=== PATIENT | male | born 1955 | race Caucasian/White ===

== ENCOUNTER 2021-05-27 21:05 | Inpatient (IN) | payer MEDICARE, OTHER ==
[2021-05-27] MEDS ORDERED: MORPHINE SULFATE 2 MG/ML SYRINGE IVP STA (21:20)
[2021-05-27] MEDS ORDERED: SODIUM CHLORIDE 0.9% 1,000 ML IV STA ×2 (21:20→23:05)
--- NOTE | 2021-05-27 21:25 | ED ---
General Adult HPI - General Chief complaint: Shortness of Breath Stated complaint: GRADY Time Seen by Provider: 05/27/21 21:06 Source: patient Mode of arrival: EMS Limitations: no limitations - History of Present Illness Initial comments: This patient is a 65-year-old man brought by ambulance to be evaluated for generalized weakness and shortness of breath. The patient states that the symptoms have been going on for at least a couple of weeks. He had called EMS approximately 2 weeks ago but then was not brought to the hospital. He had even seen his primary physician yesterday for similar complaints. Today the phone EMS again because he was not able to ambulate around his apartment without having to hold onto the uriz. The patient normally does walk with a cane due to neck and back pain. He states that this has not changed much. The weakness is not focal he feels generalized fatigue and weakness throughout. No fever or chills. No baseline dyspnea, but he does feel short of breath if he attempts to walk. No chest pain. He has not noted change in urination or bowel movements. -: week(s) Improves with: none Worsens with: none Associated Symptoms: weakness - Related Data Allergies Allergy/AdvReac Type Severity Reaction Status Date / Time No Known Allergies Allergy Verified 05/27/21 21:21 Review of Systems ROS Statement: Those systems with pertinent positive or pertinent negative responses have been documented in the HPI. ROS Other: All systems not noted in ROS Statement are negative. Constitutional: Reports: weakness. Denies: fever, chills Respiratory: Denies: cough, dyspnea Cardiovascular: Reports: dyspnea on exertion. Denies: chest pain, palpitations, edema, syncope Gastrointestinal: Denies: abdominal pain, nausea, vomiting, diarrhea, constipation Genitourinary: Denies: dysuria, frequency, hematuria Musculoskeletal: Reports: as per HPI, back pain (Chronic) Skin: Denies: rash Neurological: Denies: headache, weakness, numbness, paresthesias Past Medical History Past Medical History: Atrial Fibrillation, Hypertension, Osteoarthritis (OA) Additional Past Medical History / Comment(s): gout History of Any Multi-Drug Resistant Organisms: None Reported Past Surgical History: Pacemaker Past Psychological History: Anxiety Smoking Status: Current every day smoker Past Alcohol Use History: Abuse Past Drug Use History: None Reported General Exam Limitations: no limitations General appearance: alert, in no apparent distress Head exam: Present: atraumatic, normocephalic Eye exam: Present: PERRL, EOMI. Absent: scleral icterus, conjunctival injection Pupils: Present: miosis ENT exam: Present: mucous membranes dry Neck exam: Present: normal inspection Respiratory exam: Present: wheezes (Trace expiratory wheeze). Absent: respiratory distress, rales, rhonchi, stridor, accessory muscle use Cardiovascular Exam: Present: regular rate, normal rhythm, normal heart sounds. Absent: systolic murmur, diastolic murmur, rubs, gallop GI/Abdominal exam: Present: soft. Absent: distended, tenderness, guarding, rebound, rigid, mass Extremities exam: Present: normal inspection, normal capillary refill. Absent: pedal edema, calf tenderness Back exam: Present: normal inspection. Absent: CVA tenderness (R), CVA tenderness (L) Neurological exam: Present: alert, oriented X3. Absent: motor sensory deficit Skin exam: Present: warm, dry, intact, normal color. Absent: rash Course Vital Signs 05/27/21 05/27/21 05/27/21 21:08 21:45 21:51 Temperature 97.7 F Pulse Rate 71 59 L Respiratory 16 20 22 Rate Blood Pressure 75/61 71/46 O2 Sat by Pulse 100 99 Oximetry 05/27/21 05/27/21 05/27/21 22:00 22:15 22:30 Temperature Pulse Rate 60 60 60 Respiratory 20 16 22 Rate Blood Pressure 78/60 81/58 87/59 O2 Sat by Pulse 95 96 96 Oximetry 05/27/21 23:20 Temperature Pulse Rate 60 Respiratory 18 Rate Blood Pressure 75/55 O2 Sat by Pulse Oximetry EKG Findings - EKG Comments: EKG Findings:: Twelve-lead ECG shows what appears to be ventricular paced rhythm with a rate of 60 bpm. - EKG Results: EKG: [facility] - Lab Data Result diagrams: 05/27/21 21:42 05/27/21 21:42 Lab Results 05/27/21 05/27/21 05/27/21 Range/Units 21:42 21:42 21:42 WBC 7.8 (3.8-10.6) k/uL RBC 3.91 L (4.30-5.90) m/uL Hgb 13.9 (13.0-17.5) gm/dL Hct 41.7 (39.0-53.0) % MCV 106.5 H (80.0-100.0) fL MCH 35.5 H (25.0-35.0) pg MCHC 33.3 (31.0-37.0) g/dL RDW 13.7 (11.5-15.5) % Plt Count 104 L (150-450) k/uL MPV 9.1 Neutrophils % 75 % Lymphocytes % 13 % Monocytes % 8 % Eosinophils % 2 % Basophils % 1 % Neutrophils # 5.8 (1.3-7.7) k/uL Lymphocytes # 1.0 (1.0-4.8) k/uL Monocytes # 0.6 (0-1.0) k/uL Eosinophils # 0.2 (0-0.7) k/uL Basophils # 0.0 (0-0.2) k/uL Macrocytosis Moderate PT 11.3 (9.0-12.0) sec INR 1.1 (<1.2) APTT 25.1 (22.0-30.0) sec Sodium 135 L (137-145) mmol/L Potassium 4.0 (3.5-5.1) mmol/L Chloride 100 (98-107) mmol/L Carbon Dioxide 20 L (22-30) mmol/L Anion Gap 15 mmol/L BUN 23 H (9-20) mg/dL Creatinine 4.25 H (0.66-1.25) mg/dL Est GFR (CKD-EPI)AfAm 16 (>60 ml/min/1.73 sqM) Est GFR (CKD-EPI)NonAf 14 (>60 ml/min/1.73 sqM) Glucose 124 H (74-99) mg/dL Calcium 8.8 (8.4-10.2) mg/dL Magnesium 1.1 L (1.6-2.3) mg/dL Total Bilirubin 1.7 H (0.2-1.3) mg/dL AST 57 (17-59) U/L ALT 27 (4-49) U/L Alkaline Phosphatase 85 (38-126) U/L Troponin I (0.000-0.034) ng/mL Total Protein 5.9 L (6.3-8.2) g/dL Albumin 3.6 (3.5-5.0) g/dL TSH 2.980 (0.465-4.680) mIU/L 05/27/21 Range/Units 21:42 WBC (3.8-10.6) k/uL RBC (4.30-5.90) m/uL Hgb (13.0-17.5) gm/dL Hct (39.0-53.0) % MCV (80.0-100.0) fL MCH (25.0-35.0) pg MCHC (31.0-37.0) g/dL RDW (11.5-15.5) % Plt Count (150-450) k/uL MPV Neutrophils % % Lymphocytes % % Monocytes % % Eosinophils % % Basophils % % Neutrophils # (1.3-7.7) k/uL Lymphocytes # (1.0-4.8) k/uL Monocytes # (0-1.0) k/uL Eosinophils # (0-0.7) k/uL Basophils # (0-0.2) k/uL Macrocytosis PT (9.0-12.0) sec INR (<1.2) APTT (22.0-30.0) sec Sodium (137-145) mmol/L Potassium (3.5-5.1) mmol/L Chloride (98-107) mmol/L Carbon Dioxide (22-30) mmol/L Anion Gap mmol/L BUN (9-20) mg/dL Creatinine (0.66-1.25) mg/dL Est GFR (CKD-EPI)AfAm (>60 ml/min/1.73 sqM) Est GFR (CKD-EPI)NonAf (>60 ml/min/1.73 sqM) Glucose (74-99) mg/dL Calcium (8.4-10.2) mg/dL Magnesium (1.6-2.3) mg/dL Total Bilirubin (0.2-1.3) mg/dL AST (17-59) U/L ALT (4-49) U/L Alkaline Phosphatase (38-126) U/L Troponin I 0.091 H* (0.000-0.034) ng/mL Total Protein (6.3-8.2) g/dL Albumin (3.5-5.0) g/dL TSH (0.465-4.680) mIU/L Disposition Clinical Impression: Acute kidney injury, Dehydration, Generalized weakness, Elevated troponin I level Disposition: ADMITTED IP TO THIS HOSP Condition: Fair Referrals: Herve Argueta MD [Primary Care Provider] - 1-2 days
[2021-05-27 22:01] LABS: Albumin 3.6 g/dL (3.5-5.0); Calcium 8.8 mg/dL (8.4-10.2); Magnesium 1.1 mg/dL (1.6-2.3); Total Bilirubin 1.7 mg/dL (0.2-1.3); Total Protein 5.9 g/dL (6.3-8.2)
[2021-05-27 22:02] LABS: INR 1.1 (<1.2); Partial Thromboplastin Time 25.1 sec (22.0-30.0); Prothrombin Time 11.3 sec (9.0-12.0)
--- NOTE | 2021-05-27 22:05 | XR ---
EXAMINATION TYPE: XR chest 2V DATE OF EXAM: 05/27/2021 COMPARISON: NONE HISTORY: Weakness TECHNIQUE: 2 views FINDINGS: There is no heart failure nor confluent pneumonic infiltrate. Costophrenic angles are fairl y clear. There is left axillary pacemaker. There are chest leads. There is arthritic changes at the s houlder joints. IMPRESSION: No active cardiopulmonary disease.
[2021-05-27 22:25] LABS: Basophils % (A) 1 %; Eosinophils # (A) 0.2 k/uL (0-0.7); Eosinophils % (A) 2 %; HCT 41.7 % (39.0-53.0); HGB 13.9 gm/dL (13.0-17.5); Lymphocytes % (A) 13 %; MCH 35.5 pg (25.0-35.0); MCHC 33.3 g/dL (31.0-37.0); MCV 106.5 fL (80.0-100.0); Macrocytosis Moderate; Mean Platelet Volume 9.1; Monocytes # (A) 0.6 k/uL (0-1.0); Monocytes % (A) 8 %; Neutrophils # (A) 5.8 k/uL (1.3-7.7); Neutrophils % (A) 75 %; Platelet Count 104 k/uL (150-450); RBC 3.91 m/uL (4.30-5.90); RDW 13.7 % (11.5-15.5); WBC 7.8 k/uL (3.8-10.6)
[2021-05-27] MEDS ORDERED: SODIUM CHLORIDE 0.9% 1,000 ML IV ONE (23:05)
[2021-05-27] MEDS ORDERED: MAGNESIUM SULFATE-D5W PMX 1 GM in DEXTROSE/WATER 1 100ML.BAG IVPB ONE (23:06)
[2021-05-27] MEDS ORDERED: NALOXONE 0.4 MG/ML 1 ML VIAL IV PRN (23:17)
--- NOTE | 2021-05-28 01:10 | P.HPIM ---
History of Present Illness H&P Date: 05/28/21 The patient is a 65-year-old male with a PMH of hypertension, status post pacemaker placement, history of DVT and A. fib, who presented to the emergency room with complaints of decreased excess tolerance in terms of breath. The patient reports that his symptoms have been gradually worsening over the past few weeks. He reports significantly decreased excess tolerance, getting short of breath with only walking around his house with an inability to perform his ADLs. He reports associated dizziness with ambulation along with some palpitations. Denied chest discomfort or leg swelling. The patient also reports a poor appetite and as a result has not been eating or drinking much. The patient lives by himself with his cat and states that he has been having a difficult time with his ADLs. He also reports falling on his knees 3 days ago due to his dizziness, denying loss of consciousness or head trauma. He denied lower extremity pain, nausea, vomiting, fever, chills, cough, or dysuria. Also denied headaches, visual disturbances, unilateral weakness, numbness, tingling. He underwent an extensive evaluation in the emergency room and an EKG showing paced rhythm at 60 bpm. Chest x-ray was unremarkable. Laboratory evaluation was remarkable for BUN 23, creatinine 4.25 (unknown baseline), lactic acid 3.1, magnesium 1.1, total bilirubin 1.7, and troponin I 0.091. The patient was noted to be hypotensive in the emergency room with most recent vital showing BP 94/65 and pulse 60. Review of systems: Pertinent positives and negatives as discussed in HPI, a complete review of systems was performed and all other systems are negative. Physical examination: General: Disheveled male, no distress, appears older than stated age, overweight Derm: no unusual rashes/lesions no unusual ecchymoses, warm, dry Head: atraumatic, normocephalic, symmetric Eyes: EOMI, no lid lag, anicteric sclera, pupils equal round reactive to light ENT: Nose and ears atraumatic, no thrush, no pharyngeal erythema Neck: No thyromegaly, no cervical lymphadenopathy, trachea midline, supple Mouth: no lip lesion, mucus membranes very dry Cardiovascular: S1S2 reg, no murmur, positive posterior tibial pulse bilateral, no edema, capillary refill less than 2 seconds Lungs: CTA bilateral, no rhonchi, no rales , no accessory muscle use Abdominal: soft, nontender to palpation, no guarding, no appreciable orga nomegaly, normal bowel sounds Ext: no gross muscle atrophy, muscle strength 3 out of 5 in all 4 extremities grossly, no contractures, Neuro: CN II-XI grossly intact, light touch intact all 4 extremities, finger to nose within normal limits, Psych: Alert, oriented, appropriate affect Assessment/plan Failure to thrive with acute kidney injury secondary to dehydration -Continue IV fluids -Monitor BMP -PT consult Lactic acidosis -Monitor for resolution -Continue with fluids Troponin elevation, may be secondary to dehydration -Trend for now -Cardiac monitoring -Cardiology consulted Hypomagnesemia -Replace and monitor Thrombocytopenia -Unknown baseline -Monitor for now Chronic conditions: A. fib and history of DVT, status post pacemaker placement, hypertension -Hold oral hypertensives in setting of borderline BP -Continue with home Eliquis dose 5 mg by mouth twice a day DVT prophylaxis -Eliquis The patient is admitted with an anticipated greater than 2 midnight stay for evaluation of failure to thrive CODE STATUS: Full Code Discussed with: Patient Anticipated discharge date: 2-[address]: Home Past Medical History Past Medical History: Atrial Fibrillation, Hypertension, Osteoarthritis (OA) Additional Past Medical History / Comment(s): gout History of Any Multi-Drug Resistant Organisms: None Reported Past Surgical History: Pacemaker Past Psychological History: Anxiety Smoking Status: Current every day smoker Past Alcohol Use History: Abuse Past Drug Use History: None Reported - Past Family History Father Family Medical History: Hypertension Medications and Allergies Allergies Allergy/AdvReac Type Severity Reaction Status Date / Time No Known Allergies Allergy Verified 05/27/21 21:21 Physical Exam Vitals: Vital Signs Temp Pulse Resp BP Pulse Ox 05/28/21 00:22 94/65 05/28/21 00:00 60 20 84/60 99 05/27/21 23:52 61 20 81/59 99 05/27/21 23:20 60 18 75/55 05/27/21 22:30 60 22 87/59 96 05/27/21 22:15 60 16 81/58 96 05/27/21 22:00 60 20 78/60 95 05/27/21 21:51 22 05/27/21 21:45 59 L 20 71/46 99 05/27/21 21:08 97.7 F 71 16 75/61 100 Intake and Output 05/27/21 05/27/21 05/28/21 14:59 22:59 06:59 Other: Weight 90.718 kg Results CBC & Chem 7: 05/27/21 21:42 05/27/21 21:42 Labs: Abnormal Lab Results - Last 24 Hours (Table) 05/27/21 05/27/21 05/27/21 Range/Units 21:42 21:42 21:42 RBC 3.91 L (4.30-5.90) m/uL MCV 106.5 H (80.0-100.0) fL MCH 35.5 H (25.0-35.0) pg Plt Count 104 L (150-450) k/uL Sodium 135 L (137-145) mmol/L Carbon Dioxide 20 L (22-30) mmol/L BUN 23 H (9-20) mg/dL Creatinine 4.25 H (0.66-1.25) mg/dL Glucose 124 H (74-99) mg/dL Plasma Lactic Acid Sea 3.1 H* (0.7-2.0) mmol/L Magnesium 1.1 L (1.6-2.3) mg/dL Total Bilirubin 1.7 H (0.2-1.3) mg/dL Troponin I (0.000-0.034) ng/mL Total Protein 5.9 L (6.3-8.2) g/dL 05/27/21 Range/Units 21:42 RBC (4.30-5.90) m/uL MCV (80.0-100.0) fL MCH (25.0-35.0) pg Plt Count (150-450) k/uL Sodium (137-145) mmol/L Carbon Dioxide (22-30) mmol/L BUN (9-20) mg/dL Creatinine (0.66-1.25) mg/dL Glucose (74-99) mg/dL Plasma Lactic Acid Sea (0.7-2.0) mmol/L Magnesium (1.6-2.3) mg/dL Total Bilirubin (0.2-1.3) mg/dL Troponin I 0.091 H* (0.000-0.034) ng/mL Total Protein (6.3-8.2) g/dL
[2021-05-28] MEDS: ACETAMINOPHEN TAB 325 MG TAB PO PRN ×3 (02:16→18:36)
[2021-05-28 04:45] LABS: HCT 35.4 % (39.0-53.0); HGB 11.6 gm/dL (13.0-17.5); MCH 35.5 pg (25.0-35.0); MCHC 32.9 g/dL (31.0-37.0); MCV 107.9 fL (80.0-100.0); Macrocytosis Moderate; Mean Platelet Volume 10.2; RBC 3.28 m/uL (4.30-5.90); RDW 13.7 % (11.5-15.5); WBC 5.5 k/uL (3.8-10.6)
[2021-05-28 05:17] LABS: Calcium 8.4 mg/dL (8.4-10.2); Magnesium 1.5 mg/dL (1.6-2.3); Potassium 3.8 mmol/L (3.5-5.1)
[2021-05-28 06:34] LABS: Platelet Count 85 k/uL (150-450)
[2021-05-28] MEDS ORDERED: APIXABAN 5 MG TAB PO SCH (09:00)
[2021-05-28] MEDS ORDERED: FAMOTIDINE 20 MG TAB PO SCH (09:00)
--- NOTE | 2021-05-28 10:26 | P.PN ---
Progress Note - Text Progress Note Date: 05/28/21 Patient seen and examined at bedside. Patient states that a few weeks ago he was admitted to [facility]. Since his discharge patient has not felt well. Patient states that he keeps passing out. This has been happening for the past few months. Patient states that he had a grand mal seizure in the when he was at work. The cause was not identified. Per the patient, he has not had a recent workup for his syncope. Patient has difficulty ambulating because of lower extremity weakness coming from his back. Patient was supposed to get an MRI of his lumbar spine, however he was claustrophobic and did not. Patient ambulates with a walker because of his lower extremity weakness and back pain. Due to this he has not been able to adapt fully with his ADLs. Assessment/plan 1. Syncope Neuro workup ordered Neurology recommendations appreciated 2. Lower extremity weakness likely caused by lumbar radiculopathy Check CT of lumbar spine since patient is claustrophobic with an MRI 3. A.m. labs ordered
[2021-05-28 12:16] LABS: Appearance,Urine Clear (Clear); Bilirubin,Urine 1+ (Negative); Blood,Urine Small (Negative); Color,Urine Dark Brown; Glucose,Urine (UA) Negative (Negative); Hyaline Casts,Urine 24 /lpf (0-2); Ketones,Urine Negative (Negative); Leukocyte Esterase,Urine Negative (Negative); Mucus,Urine Rare /hpf; Nitrite,Urine Negative (Negative); Protein,Urine Trace (Negative); RBC,Urine 8 /hpf (0-5); Specific Gravity,Urine 1.029 (1.001-1.035); Squamous Epithelial Cell,Urine <1 /hpf (0-4); WBC,Urine 2 /hpf (0-5)
--- NOTE | 2021-05-28 12:41 | P.NPCON ---
History of Present Illness - Reason for Consult Consult date: 05/28/21 acute renal failure - Chief Complaint Elevated creatinine - History of Present Illness This is 65-year-old male seen in consultation because of an elevated creatinine creatinine is 4.25 and 4.36 yesterday and today respectively Patient came in because of some chest discomfort and shortness of breath for the last few months. He lost 15 pounds with nausea and loss of appetite. No fever chills no cough. He does feel dizzy. His blood pressure is very low here in the 70s although he is awake and alert and warm to touch Patient says that his primary physician might have mentioned something about his kidney not being well about a year ago. He did not have any previous creatinines He does has hesitancy and difficulty in urination currently has a Malone catheter but very little urine output is in the bag over the last few hours since the Malone cath went in Past history significant for DVTs and PEs with the IVC filter on alkalosis Is also known with atrial fibrillation, pacemaker He was recently hospitalized at [facility] for the same problems details of that are not available. He was released about 2 weeks ago. He does have severe peripheral neuropathy and is being worked up for the same. Denies any history of diabetes hypertension Denies any history of nonsteroidal use, herbal use. No family history of kidney disease Past Medical History Past Medical History: Atrial Fibrillation, Hypertension, Osteoarthritis (OA) Additional Past Medical History / Comment(s): gout History of Any Multi-Drug Resistant Organisms: None Reported Past Surgical History: Pacemaker Type of Cardiac Device: Permanent Pacemaker Device Placement Date:: 2018 Past Psychological History: Anxiety Smoking Status: Current every day smoker Past Alcohol Use History: Abuse Past Drug Use History: None Reported - Past Family History Father Family Medical History: Hypertension Medications and Allergies Home Medications Medication Instructions Recorded Confirmed Type Apixaban [Eliquis] 5 mg PO BID 05/28/21 05/28/21 History Colchicine [Mitigare] 1.2 mg PO DAILY 05/28/21 05/28/21 History Cyanocobalamin (Vitamin B-12) 1,000 mcg PO DAILY 05/28/21 05/28/21 History [Vitamin B-12] Diltiazem HCl [Diltiazem HCl 24Hr 180 mg PO DAILY 05/28/21 05/28/21 History ER (XR)] Escitalopram [Lexapro] 10 mg PO DAILY 05/28/21 05/28/21 History Folic Acid 1 mg PO DAILY 05/28/21 05/28/21 History Metoprolol Succinate (ER) [Toprol 100 mg PO BID 05/28/21 05/28/21 History Xl] Rosuvastatin Calcium [Crestor] 5 mg PO HS 05/28/21 05/28/21 History Tamsulosin HCl [Flomax] 0.8 mg PO DAILY 05/28/21 05/28/21 History Thiamine [Vitamin B-1] 100 mg PO DAILY 05/28/21 05/28/21 History allopurinoL [Zyloprim] 100 mg PO BID 05/28/21 05/28/21 History oxyCODONE-APAP 10-325MG [Percocet 1 tab PO TID PRN 05/28/21 05/28/21 History 10-325 mg] traZODone HCL [Desyrel] 50 - 100 mg PO HS PRN 05/28/21 05/28/21 History Allergies Allergy/AdvReac Type Severity Reaction Status Date / Time No Known Allergies Allergy Verified 05/28/21 09:12 Physical Exam Vitals: Vital Signs Temp Pulse Pulse Resp BP BP Pulse Ox 05/28/21 12:26 115/58 05/28/21 12:25 110/58 05/28/21 12:00 94/62 05/28/21 11:59 98.1 F 56 L 18 115/58 95 05/28/21 08:00 97.5 F L 63 18 97/67 100 05/28/21 04:45 97.7 F 62 17 106/67 99 05/28/21 01:58 97.4 F L 72 16 94/61 98 05/28/21 01:28 111/77 05/28/21 00:22 94/65 05/28/21 00:00 60 20 84/60 99 05/27/21 23:52 61 20 81/59 99 05/27/21 23:20 60 18 75/55 05/27/21 22:30 60 22 87/59 96 05/27/21 22:15 60 16 81/58 96 05/27/21 22:00 60 20 78/60 95 05/27/21 21:51 22 05/27/21 21:45 59 L 20 71/46 99 05/27/21 21:08 97.7 F 71 16 75/61 100 Intake and Output 05/27/21 05/28/21 05/28/21 22:59 06:59 14:59 Other: Weight 90.718 kg 93.3 kg Examination awake alert oriented comfortable A chin exam no JVP neck is supple no facial asymmetry no lymphadenopathy in the axilla or neck Interpreted auscultation good air entry bilaterally Heart sounds unremarkable for any murmur rub gallop Abdomen soft nontender no organomegaly status masses Extremity exam was trace edema Neurologically awake alert oriented has peripheral neuropathy due to Results - Lab Results Most recent lab results Calcium 8.4 mg/dL (8.4-10.2) 05/28/21 04:24 Magnesium 1.5 mg/dL (1.6-2.3) L 05/28/21 04:24 05/28/21 04:24 05/28/21 04:24 Assessment and Plan Assessment: Impression 1. Acute kidney injury or chronic kidney disease unclear. Creatinine is 4.36, was 4.25 yesterday. Urinalysis shows trace protein 8 RBCs and 2 WBCs. He has a Malone catheter therefore there is no outlet obstruction. Likely has chronic kidney disease as he was aware that there was some problem with his kidney details are not available. We'll rule out vasculitis given he has thrombocytopenia and peripheral neuropathy 2. Mild degree of gap acidosis with bicarb 20 and anion gap 15 resolved. 3. Lactic acidosis. 4. Hypotension rule out sepsis, cardiomyopathy, adrenal insufficiency, thyroid function is normal with TSH of 2.9 5. History of DVT and pulmonary embolism on atelectasis. Rule out hypercoagulable state 6. Thrombocytopenia cause not very clear 7. Peripheral neuropathy again cause not clear. Recommendation 1. Ultrasound of the kidney 2. Urine protein to creatinine ratio although urine protein is normal 3. Check uric acid, serum cortisol, echocardiogram. 4. SARAH double-stranded DNA, C3-C4, ANCA to rule out vasculitis 5. Workup for hypercoagulable state, peripheral neuropathy. Thank you for this consultation will continue to follow closely
[2021-05-28] MEDS: ESCITALOPRAM 10 MG TAB PO SCH (12:52)
[2021-05-28] MEDS: FOLIC ACID 1 MG TAB PO SCH (12:52)
[2021-05-28] MEDS: TAMSULOSIN 0.4 MG CAP.ER.24H PO SCH (12:52)
--- NOTE | 2021-05-28 13:17 | CT ---
EXAMINATION TYPE: CT brain wo con DATE OF EXAM: 05/28/2021 COMPARISON: None HISTORY: syncope TECHNIQUE: CT scan of the head performed without contrast CT DLP: 1173.4 mGycm Automated exposure control for dose reduction was used. FINDINGS: No acute intracranial hemorrhage, midline shift or mass effect. Vazquez-white matter differentiation is preserved. There is mild brain volume loss. Patchy low-attenuation the deep white matter and periventricular reg ion suggests chronic microvascular ischemia. No acute orbital, osseous or soft tissue abnormality. Mild mucosal sinus disease noted. IMPRESSION: NO ACUTE INTRACRANIAL HEMORRHAGE, MIDLINE SHIFT OR MASS EFFECT.
[2021-05-28 13:19] LABS: Uric Acid 7.2 mg/dL (3.5-8.5)
--- NOTE | 2021-05-28 13:22 | CT ---
EXAMINATION TYPE: CT lumbar spine wo con DATE OF EXAM: 05/28/2021 COMPARISON: None HISTORY: Back pain TECHNIQUE: CT scan of the lumbar spine without contrast CT DLP: 1373.6 mGycm Automated exposure control for dose reduction was used. FINDINGS: Lumbar lordosis is maintained. There are 5 nonrib-bearing lumbar-type vertebral bodies. Vertebral body heights are normal. There is grade 1 anterior translation of L3 over L4 with severe narrowing of the intervertebral space s disc degenerative changes and disc herniation at the same level. There is mild narrowing at L5-S1. There is evidence of disc herniation at L4-5 and L5-S1. There are severe facet joint arthropathy sánchez ges extending from L2-3 L5-S1. There is severe bilateral neural foraminal narrowing at L3-4 and mild to moderate narrowing at L4-5 bilaterally. Mild bony spinal canal stenosis noted at L4 level. There is a inferior vena cava filter with the tip at the level of inferior endplate of L2. Atheroscle rotic calcifications are seen in the included aorta. Atelectatic changes are seen in the lung bases. IMPRESSION: DEGENERATIVE CHANGES IN THE LUMBAR SPINE DESCRIBED ABOVE.
--- NOTE | 2021-05-28 13:30 | P.CNNES ---
History of Present Illness Consult date: 05/28/21 Requesting physician: Adrianna Kaba Reason for Consult: recurrent syncope and weakness History of Present Illness: This is a 65-year-old gentleman with medical history of seizure, TIA, atrial fibrillation s/p pacemaker on eliquis, pulmonary embolism, bilateral lower extremity DVT and he has a Green filter in the right, chronic neck and lower back pain, osteoarthritis hypertension who presented to the emergency department via EMS on 05/27/2021 for generalized weakness and shortness of breath for the past 2 weeks. The patient is accompanied with his sister was at bedside. Patient stated that he's been feeling generalized weakness and shortness of breath for the last 2 weeks. He stated that that the head this past Saturday he had 2 episodes of passing out. He said he was sitting on a couch then he stood up and then walked and that as he got to the head to grab the handrail then that felt lightheaded and dizzy prior to episode then the patient passed out. He thinks he passed out for 1-2 minutes. He said that after waking up from my the episode that he denied any urinary, bowel incontinence. He denied any tongue bite or soreness. And then he got up and then the he passed out again and prior to passing out again he felt lightheaded and dizzy. Again he did not have any urinary, bowel incontinence or the any time soreness or bite. These episodes were not witnessed. He said that he has episode of passing out for years and he can't remember when was the last time he had prior to this one he said it could've been a month ago but they're sporadic and prior to passing [id number] feel lightheaded and dizzy. He did state that he had one seizure episode in and he said he passed out and he was hospitalized and he had an EEG but he doesn't remember the reports and he had to be on Dilantin and was on it until 1980s or 90s and was discontinued he never followed up with neurologist. Again he doesn't know the exact details of this seizure episode. Regarding his other passing out episode that he complains about he says that the he would have episodes of just feeling dizzy lightheaded prior to episode and the he is not sure if he has any jerk in of any extremity but he was told that there is no foaming around the mouth when there are witnessed his eyes are closed but there is no urinary or bowel incontinence or any tongue bite at. He stated that he notified the other physicians about this in the past and he was told that was nothing about it. Patient denies of any fevers, any focal weakness, any new visual disturbance, any difficulty getting his words out. Patient drinks about 6 packs of cans of beer a week he thinks he drinks about close to 1 or maybe less can of beer which is 12-16 hours a day. Denies of tobacco use or any illicit drug use. Patient has chronic neck and lower back pain and he does not feel at has changed. He has been using a cane for years. He has a walker at home but for the most part uses a cane. Of note patient stated that he had the TIA in the past and what in which he said that he had some difficulty with his language. Patient has never followed up with a neurologist regarding TIA or seizure. Per the sister the patient does not have any history of seizures as a child. Regarding the patient's history is term, vaginal delivery no complication. There is no family history of seizures Patient will medication consist of him out was 5 mg 1 tablet twice a day, thiamine 100 mg daily, vitamin B12 1000 g daily, trazodone, Crestor 5 mg daily at bedtime, oxycodone 1 tablet 3 times a day when necessary, colchicine, metoprolol 100 mg without twice a day, folic acid, Lexapro, diltiazem 180 mg daily. Some other workup in the hospital consisted of: Initial vital signs: Blood pressure of 75/61, heart rate of 71, respiratory of 16, temperature of 97.7 Fahrenheit rectal and pulse ox of 1% 2 L of nasal cannula. On presentation the patient had multiple recorded episodes of systolic blood pressure in the 70s to 80s and diastolics between 40s to the 60s which is very low. The lowest heart rate a got was 59 on 05/27/2021 at around 2145. CBC with differential is white blood cell has been the normal at 7.8. MCV of 106.5 and the repeat is 107.9 which is elevated, platelets is 104 and a repeated platelet is 85K which is low. Chemistry panel is initial sodium is 135 which is very minimally low and does not seem the 2 significantly low. Creatinine is 4.25 which is elevated, and the plasma lactic acid venous report is elevated, magnesium is 1.1 which is the low. AST of 57 ALT of 27 which considered within normal limits. TSH is 2.980 which is concerned with the within normal limits Troponin is 0.091 and the repeat his 0.083. Plasma lactic acid vein is 3.1 and the repeat is 2.3. EKG is reported as ventricular paced rhythm. Abnormal EKG. Review of Systems Review of system: The 12 point system was reviewed and apparent positive and negative per HPI. Past Medical History Past Medical History: Atrial Fibrillation, Hypertension, Osteoarthritis (OA) Additional Past Medical History / Comment(s): gout History of Any Multi-Drug Resistant Organisms: None Reported Past Surgical History: Pacemaker Type of Cardiac Device: Permanent Pacemaker Device Placement Date:: 2018 Past Psychological History: Anxiety Smoking Status: Current every day smoker Past Alcohol Use History: Abuse Past Drug Use History: None Reported - Past Family History Father Family Medical History: Hypertension Medications and Allergies Home Medications Medication Instructions Recorded Confirmed Type Apixaban [Eliquis] 5 mg PO BID 05/28/21 05/28/21 History Colchicine [Mitigare] 1.2 mg PO DAILY 05/28/21 05/28/21 History Cyanocobalamin (Vitamin B-12) 1,000 mcg PO DAILY 05/28/21 05/28/21 History [Vitamin B-12] Diltiazem HCl [Diltiazem HCl 24Hr 180 mg PO DAILY 05/28/21 05/28/21 History ER (XR)] Escitalopram [Lexapro] 10 mg PO DAILY 05/28/21 05/28/21 History Folic Acid 1 mg PO DAILY 05/28/21 05/28/21 History Metoprolol Succinate (ER) [Toprol 100 mg PO BID 05/28/21 05/28/21 History Xl] Rosuvastatin Calcium [Crestor] 5 mg PO HS 05/28/21 05/28/21 History Tamsulosin HCl [Flomax] 0.8 mg PO DAILY 05/28/21 05/28/21 History Thiamine [Vitamin B-1] 100 mg PO DAILY 05/28/21 05/28/21 History allopurinoL [Zyloprim] 100 mg PO BID 05/28/21 05/28/21 History oxyCODONE-APAP 10-325MG [Percocet 1 tab PO TID PRN 05/28/21 05/28/21 History 10-325 mg] traZODone HCL [Desyrel] 50 - 100 mg PO HS PRN 05/28/21 05/28/21 History Allergies Allergy/AdvReac Type Severity Reaction Status Date / Time No Known Allergies Allergy Verified 05/28/21 09:12 Physical Examination - Vital Signs Vital Signs: Vital Signs Temp Pulse Pulse Resp BP BP Pulse Ox 05/28/21 08:00 97.5 F L 63 18 97/67 100 05/28/21 04:45 97.7 F 62 17 106/67 99 05/28/21 01:58 97.4 F L 72 16 94/61 98 05/28/21 01:28 111/77 05/28/21 00:22 94/65 05/28/21 00:00 60 20 84/60 99 05/27/21 23:52 61 20 81/59 99 05/27/21 23:20 60 18 75/55 05/27/21 22:30 60 22 87/59 96 05/27/21 22:15 60 16 81/58 96 05/27/21 22:00 60 20 78/60 95 05/27/21 21:51 22 05/27/21 21:45 59 L 20 71/46 99 05/27/21 21:08 97.7 F 71 16 75/61 100 Intake and Output 05/27/21 05/28/21 05/28/21 22:59 06:59 14:59 Other: Weight 90.718 kg 93.3 kg GENERAL: The patient is lying in bed and is not in acute distress. CHEST: The heart rate is regular rate rhythm. No murmurs to auscultation. No carotid bruit bilaterally. LUNG: Clear to auscultation bilaterally no wheezing noted throughout. Not labored breathing. ABDOMEN/GI: Bowel sounds present in all 4 quadrants. No tenderness to palpation throughout. NEUROLOGICAL: Higher mental function: The patient is awake, alert, oriented to self, place and time. Patient is following commands. No aphasia and no neglect. Cranial nerves: The pupils are round, equal and reactive to light and accommodation. Visual purvis are full to confrontation throughout. Extraocular movement is intact no nystagmus is noted. Facial sensation is normal to touch throughout. The facial strength is normal throughout. Hearing is mildly to moderate decreased bilaterally to hand rub. Tongue is midline and moved [id number] without any difficulty. No dysarthria is noted. Shoulder shrug is normal bilaterally. Motor: Gait: [place] he was dragging the right leg and walking taking short steps. The strength is 4+ throughout except bilateral thighs are 4+ to 5-. Normal tone and bulk. No sponatenous movment Cerebellum: Normal finger to nose bilaterally. Sensation: Sensation is normal to touch throughout. Reflexes (right/left): 1+ throughout. Plantars are mute bilaterally. Results Coagulation study: PT of 11.3, INR 1.1, PTT of 25.1 - Laboratory Findings CBC and BMP: 05/28/21 04:24 05/28/21 04:24 Abnormal Lab Findings: Abnormal Labs 05/27/21 05/27/21 05/27/21 21:42 21:42 21:42 RBC 3.91 L Hgb Hct MCV 106.5 H MCH 35.5 H Plt Count 104 L Sodium 135 L Carbon Dioxide 20 L BUN 23 H Creatinine 4.25 H Glucose 124 H Plasma Lactic Acid Sea 3.1 H* Magnesium 1.1 L Total Bilirubin 1.7 H Troponin I Total Protein 5.9 L 05/27/21 05/28/21 05/28/21 21:42 01:06 01:50 RBC Hgb Hct MCV MCH Plt Count Sodium Carbon Dioxide BUN Creatinine Glucose Plasma Lactic Acid Sea 2.3 H* Magnesium Total Bilirubin Troponin I 0.091 H* 0.083 H* Total Protein 05/28/21 05/28/21 05/28/21 04:24 04:24 04:24 RBC 3.28 L Hgb 11.6 L Hct 35.4 L MCV 107.9 H MCH 35.5 H Plt Count 85 L Sodium 134 L Carbon Dioxide BUN 25 H Creatinine 4.36 H Glucose 102 H Plasma Lactic Acid Sea Magnesium 1.5 L Total Bilirubin Troponin I 0.069 H* Total Protein Assessment and Plan Assessment: Recurrent syncopes: Feels dizzy and light headed prior to episodes. Presented with hypotensive on presentation (blood pressure 70's/40-60's). Unlikely seizure but cannot be excluded (from history no foaming around the mouth, urinary or bowel incontinence, no tongue bite/soreness and unsure of jerking). Generalized weakness and shortness of breath for 2 weeks. Possibly due to hypovolemia Electrolyte imbalance (hypomagenesmia) History of seizure (one seizure in but could not tell me about clinical episode what work-up revealed. Was on dilantin then was stopped in or ) History of TIA in remote past (language deficit) Chronic neck and lower back pain and uses cane for years Macrocytosis Hypotension Kidney insufficiency (unsure if acute or chronic or acute on chronic) Atrial fibrillation status post pacemaker History of pulmonary embolism and has green filter History of bilateral DVT History of hypertension presenting with episodes of hypotension Plan: * CT of the head, CT of the lumbar and carotid duplex are ordered by the primary team is pending. * Also routine EEG is ordered by primary team. I'll not start the patient on an antiepileptic drug unless there is epileptiform discharges or seizure on EEG. If negative for seizure or epileptiform discharges recommend prolonged outpatient EEG so we can capture these event. Patient is on agreement of being started on anti-epileptic drug until we have more work-up. * Ordered 2-D echo and orthostatic vitals. * Placed on continous cardiac monitoring and Q4 hours neuro checks. * Recommend avoiding any further episodes of hypotension and will defer the management to the primary team. * Primary ordered vitamin B12, folate levels and I ordered hemoglobin A1c. * Continue thiamine 100 mg daily * Patient is continued on his home dose of eliquis 5mg 1 tab bid. He is on Lipitor 10mg and I increased to 40mg qhs for secondary stroke prophylaxis. * Cardiology is consulted for the elevated troponins. * Consulted Orthopedic team for neck and lower back pain. * Belting Inspector consulted for the kidney injury. * Will defer the rest of medical management to the primary team. The plan is discussed with the patient, his sister (Felipa who is at bedside) and his nurse. Thank you for the consultation. Zheng Linda MD Neuro-Hospitalist Time with Patient: Greater than 30
[2021-05-28] MEDS: THIAMINE 100 MG TAB PO SCH (14:44)
--- NOTE | 2021-05-28 15:13 | US ---
EXAMINATION TYPE: US carotid duplex BILAT DATE OF EXAM: 05/28/2021 COMPARISON: NONE CLINICAL HISTORY: syncope. Syncope, pt states H/O TIA's EXAM MEASUREMENTS: RIGHT: Peak Systolic Velocity (PSV) cm/sec ----- Right CCA: 63.6 ----- Right ICA: 64.7 ----- Right ECA: 100.8 ICA/CCA ratio: 1.0 RIGHT: End Diastole cm/sec ----- Right CCA: 18.6 ----- Right ICA: 19.7 ----- Right ECA: 10.2 LEFT: Peak Systolic Velocity (PSV) cm/sec ----- Left CCA: 54.9 ----- Left ICA: 77.6 ----- Left ECA: 107.3 ICA/CCA ratio: 1.4 LEFT: End Diastole cm/sec ----- Left CCA: 14.7 ----- Left ICA: 27.8 ----- Left ECA: 8.9 VERTEBRALS (direction of flow): Right Vertebral: Antegrade Left Vertebral: Antegrade Rhythm: Normal No significant stenosis seen IMPRESSION: No evidence for hemodynamically significant stenosis. Criteria for Assigning % of Stenosis / Diameter reduction (Estimation based on the indirect measurements of the internal carotid artery velocities (ICA PSV). 1. Normal (no stenosis)=ICA PSV < 125 cm/s: ratio < 2.0: ICA EDV<40 cm/s. 2. Less than 50% stenosis=ICA PSV < 125 cm/s: ratio < 2.0: ICA EDV<40 cm/s. 3. 50 to 69% stenosis=ICA PSV of 125 to 230 cm/s: ration 2.0 ? 4.0: ICA EDV 40-100 cm/s. 4. Greater than 70% stenosis to near occlusion= ICA PSV > 230 cm/s: ratio > 4.0: ICA EDV > 100 cm/s. 5. Near occlusion= ICA PSV velocities may be low or undetectable: variable ratio and ICA EDV. 6. Total occlusion=unable to detect flow.
--- NOTE | 2021-05-28 15:15 | US ---
EXAMINATION TYPE: US renals and bladder DATE OF EXAM: 05/28/2021 COMPARISON: NONE CLINICAL HISTORY: renal failure. RF EXAM MEASUREMENTS: Right Kidney: 9.4 x 4.6 x 3.9 cm Left Kidney: 10.6 x 5.6 x 4.7 cm Right Kidney: No hydronephrosis or masses seen Left Kidney: No hydronephrosis or masses seen Bladder: Not visualized, pt has cath in place There is no evidence for hydronephrosis at this point in time. No nephrolithiasis is seen. No mohsen s are identified. The urinary bladder decompressed given Malone catheter. IMPRESSION: No significant abnormality appreciated at this time.
--- NOTE | 2021-05-28 15:35 | P.CRDCN ---
History of Present Illness Consult date: 05/28/21 Requesting physician: Richard Mendoza Reason for Consult (text): elevated troponin Chief complaint: generalized weakness, poor oral intake, syncope History of present illness: This is a pleasant 65-year-old gentleman who follows with Dr. Cardona. He has a history of chronic atrial fibrillation, anticoagulated on Eliquis, DVT and bilateral PEs in the past, IVC filter, permanent pacemaker, hyperlipidemia. He was recently admitted to [facility] with symptoms of chest discomfort at which time he underwent stress test which was negative according to the discharge summary and the patient. He presented here to the emergency department with complaints of generalized weakness, poor oral intake due to decreased appetite, nausea, syncope. He was found to be significantly hypotensive on admission. We were asked to the patient in consultation for elevated troponins which came back to be 0.091, 0.083 and 0.069. Patient was found to be in acute kidney failure with a creatinine of 4.25. Of note during his admission at [facility] on May 02 his creatinine was 1.44. Chest x-ray on admission showed no active cardiopulmonary disease. EKG showed atrial fibrillation with ventricular paced rhythm. Route ultrasound showed no evidence for hemodynamically significant stenosis. He has neurology and nephrology on consultation. Pressure is somewhat better running in the 90s-110s systolic. Antihypertensive agents and beta noé on hold. Past Medical History Past Medical History: Atrial Fibrillation, Hypertension, Osteoarthritis (OA) Additional Past Medical History / Comment(s): gout History of Any Multi-Drug Resistant Organisms: None Reported Past Surgical History: Pacemaker Type of Cardiac Device: Permanent Pacemaker Device Placement Date:: 2018 Past Psychological History: Anxiety Smoking Status: Current every day smoker Past Alcohol Use History: Abuse Past Drug Use History: None Reported - Past Family History Father Family Medical History: Hypertension Medications and Allergies Home Medications Medication Instructions Recorded Confirmed Type Apixaban [Eliquis] 5 mg PO BID 05/28/21 05/28/21 History Colchicine [Mitigare] 1.2 mg PO DAILY 05/28/21 05/28/21 History Cyanocobalamin (Vitamin B-12) 1,000 mcg PO DAILY 05/28/21 05/28/21 History [Vitamin B-12] Diltiazem HCl [Diltiazem HCl 24Hr 180 mg PO DAILY 05/28/21 05/28/21 History ER (XR)] Escitalopram [Lexapro] 10 mg PO DAILY 05/28/21 05/28/21 History Folic Acid 1 mg PO DAILY 05/28/21 05/28/21 History Metoprolol Succinate (ER) [Toprol 100 mg PO BID 05/28/21 05/28/21 History Xl] Rosuvastatin Calcium [Crestor] 5 mg PO HS 05/28/21 05/28/21 History Tamsulosin HCl [Flomax] 0.8 mg PO DAILY 05/28/21 05/28/21 History Thiamine [Vitamin B-1] 100 mg PO DAILY 05/28/21 05/28/21 History allopurinoL [Zyloprim] 100 mg PO BID 05/28/21 05/28/21 History oxyCODONE-APAP 10-325MG [Percocet 1 tab PO TID PRN 05/28/21 05/28/21 History 10-325 mg] traZODone HCL [Desyrel] 50 - 100 mg PO HS PRN 05/28/21 05/28/21 History Allergies Allergy/AdvReac Type Severity Reaction Status Date / Time No Known Allergies Allergy Verified 05/28/21 09:12 Physical Exam Vitals: Vital Signs Temp Pulse Pulse Resp BP BP Pulse Ox 05/28/21 14:00 62 18 05/28/21 12:26 115/58 05/28/21 12:25 110/58 05/28/21 12:00 94/62 05/28/21 11:59 98.1 F 56 L 18 115/58 95 05/28/21 08:00 97.5 F L 63 18 97/67 100 05/28/21 04:45 97.7 F 62 17 106/67 99 05/28/21 01:58 97.4 F L 72 16 94/61 98 05/28/21 01:28 111/77 05/28/21 00:22 94/65 05/28/21 00:00 60 20 84/60 99 05/27/21 23:52 61 20 81/59 99 05/27/21 23:20 60 18 75/55 05/27/21 22:30 60 22 87/59 96 05/27/21 22:15 60 16 81/58 96 05/27/21 22:00 60 20 78/60 95 05/27/21 21:51 22 05/27/21 21:45 59 L 20 71/46 99 05/27/21 21:08 97.7 F 71 16 75/61 100 Intake and Output 05/28/21 05/28/21 05/28/21 06:59 14:59 22:59 Intake Total 240 Balance 240 Intake: Oral 240 Other: Voiding Method Indwelling Catheter Weight 93.3 kg PHYSICAL EXAMINATION: This is a 65-year-old male in no apparent distress at the time of my examination. VITAL SIGNS: Blood pressure 115/58, heart rate 56, respirations 18, temp 98.1F. Patient is 95 % on 2 L via nasal cannula. HEENT: Head is atraumatic, normocephalic. Pupils are equal, round. Sclerae anicteric. Conjunctivae are clear. Mucous membranes of the mouth are moist. Neck is supple. There is no elevated jugular venous pressure. No carotid bruit is heard. CHEST EXAMINATION: Clear to auscultation bilaterally. No wheezes rales or rhonchi. Respirations even and nonlabored. HEART EXAMINATION: Heart irregular rate and rhythm, positive S1 and S2. No S3. No S4. No clicks, rubs or murmurs. ABDOMEN: Distended, nontender. Bowel sounds are heard. No organomegaly noted. EXTREMITIES: 2+ peripheral pulses with no evidence of peripheral edema and no calf tenderness noted. NEUROLOGIC EXAMINATION: Patient is awake, alert and oriented x3. Results 05/28/21 04:24 05/28/21 04:24 Cardiac Enzymes 05/27/21 05/27/21 05/28/21 Range/Units 21:42 21:42 01:06 AST 57 (17-59) U/L Troponin I 0.091 H* 0.083 H* (0.000-0.034) ng/mL 05/28/21 Range/Units 04:24 AST (17-59) U/L Troponin I 0.069 H* (0.000-0.034) ng/mL Coagulation 05/27/21 Range/Units 21:42 PT 11.3 (9.0-12.0) sec APTT 25.1 (22.0-30.0) sec CBC 05/27/21 05/28/21 Range/Units 21:42 04:24 WBC 7.8 5.5 (3.8-10.6) k/uL RBC 3.91 L 3.28 L (4.30-5.90) m/uL Hgb 13.9 11.6 L (13.0-17.5) gm/dL Hct 41.7 35.4 L (39.0-53.0) % Plt Count 104 L 85 L (150-450) k/uL Comprehensive Metabolic Panel 05/27/21 05/28/21 Range/Units 21:42 04:24 Sodium 135 L 134 L (137-145) mmol/L Potassium 4.0 3.8 (3.5-5.1) mmol/L Chloride 100 101 (98-107) mmol/L Carbon Dioxide 20 L 26 (22-30) mmol/L BUN 23 H 25 H (9-20) mg/dL Creatinine 4.25 H 4.36 H (0.66-1.25) mg/dL Glucose 124 H 102 H (74-99) mg/dL Calcium 8.8 8.4 (8.4-10.2) mg/dL AST 57 (17-59) U/L ALT 27 (4-49) U/L Alkaline Phosphatase 85 (38-126) U/L Total Protein 5.9 L (6.3-8.2) g/dL Albumin 3.6 (3.5-5.0) g/dL Current Medications Generic Name Dose Route Start Last Admin Trade Name Freq PRN Reason Stop Dose Admin Acetaminophen 650 mg 05/27/21 23:17 05/28/21 09:43 Acetaminophen Tab 325 Mg Tab PO 650 mg Q6HR PRN Administration Mild Pain or Fever > 100.5 Allopurinol 100 mg 05/28/21 21:00 Allopurinol 100 Mg Tab PO BID CEDRICK Apixaban 2.5 mg 05/28/21 21:00 Apixaban 2.5 Mg Tablet PO BID [facility] Protocol Atorvastatin Calcium 40 mg 05/28/21 21:00 Atorvastatin 40 Mg Tab PO HS [facility] Cyanocobalamin 1,000 mcg 05/29/21 09:00 Cyanocobalamin 500 Mcg Tab PO DAILY [facility] Escitalopram Oxalate 10 mg 05/28/21 12:30 05/28/21 12:52 Escitalopram 10 Mg Tab PO 10 mg DAILY [facility] Administration Famotidine 20 mg 05/29/21 09:00 Famotidine 20 Mg Tab PO DAILY CEDRICK Folic Acid 1 mg 05/28/21 12:30 05/28/21 12:52 Folic Acid 1 Mg Tab PO 1 mg DAILY CEDRICK Administration Metoprolol Tartrate 25 mg 05/28/21 21:00 Metoprolol Tartrate 25 Mg Tab PO BID CEDRICK Naloxone HCl 0.2 mg 05/27/21 23:17 Naloxone 0.4 Mg/Ml 1 Ml Vial IV Q2M PRN Opioid Reversal Oxycodone/Acetaminophen 1 each 05/27/21 23:17 Oxycodone-Apap 5-325mg 1 Each Tab PO Q4HR PRN Severe Pain Tamsulosin HCl 0.4 mg 05/28/21 12:30 05/28/21 12:52 Tamsulosin 0.4 Mg Cap.Er.24h PO 0.4 mg [id number] CEDRICK Administration Thiamine HCl 100 mg 05/28/21 13:15 05/28/21 14:44 Thiamine 100 Mg Tab PO 100 mg DAILY CEDRICK Administration Trazodone HCl 50 - 100 mg 05/28/21 12:17 Trazodone Hcl 50 Mg Tab PO HS PRN SLEEP Intake and Output 05/28/21 05/28/21 05/28/21 06:59 14:59 22:59 Intake Total 240 Balance 240 Intake: Oral 240 Other: Voiding Method Indwelling Catheter Weight 93.3 kg 05/28/21 04:24 05/28/21 04:24 Assessment and Plan Assessment: #1 generalized weakness with episodes of syncope #2 acute on chronic kidney failure #3 mildly abnormal troponins likely secondary to underlying renal failure #4 chronic atrial fibrillation #5 sick sinus syndrome status post pacemaker implantation which appears to be functioning normally by 23 #6 hypotension Plan: From cardiology's perspective we'll obtain a 2-D echo with Doppler study to assess cardiac structure and function. We will resume low-dose beta noé. We will continue to follow the patient provide further recommendations accordingly. [employer] note has been reviewed, I agree with a documented findings and plan of care. Patient was seen and examined.
--- NOTE | 2021-05-28 15:43 | CT ---
EXAMINATION TYPE: CT cervical spine wo con DATE OF EXAM: 05/28/2021 COMPARISON: None HISTORY: Neck pain. CT DLP: 538.7 mGycm Automated exposure control for dose reduction was used. Images obtained from the skull base to T1 vertebra with no contrast. The cervical vertebra have fairly normal alignment. There is degenerative disc space narrowing throug hout the cervical spine with spurring of the endplates. There is mild narrowing of the spinal canal f rom C3 to C7. The posterior elements are intact. Facet joints are intact. There is some anterior brid ging osteophyte formation in the mid and lower cervical spine. The skull base is intact. There is nor mal aeration of the mastoid sinuses. IMPRESSION: Cervical moderate multilevel spondylotic changes. No fracture seen.
[2021-05-28 16:19] LABS: Protein/Creatinine Ratio,Urine 0.015
[2021-05-28] MEDS: ATORVASTATIN 40 MG TAB PO SCH (20:13)
[2021-05-28] MEDS: METOPROLOL TARTRATE 25 MG TAB PO SCH (20:13)
[2021-05-28] MEDS: allopurinoL 100 MG TAB PO SCH (20:13)
[2021-05-28] MEDS: APIXABAN 2.5 MG TABLET PO SCH (20:13)
[2021-05-28] MEDS ORDERED: DOCUSATE 100 MG CAP PO STA (20:16)
[2021-05-28 20:46] LABS: Cardiolipin Ab IgG Interp NEGATIVE (NEGATIVE); Cardiolipin Ab IgM Interp NEGATIVE (NEGATIVE); Cardiolipin IgA Antibody <2.0 U/mL; Cardiolipin IgM Antibody <1.5 U/mL
[2021-05-28] MEDS ORDERED: ATORVASTATIN 10 MG TAB PO SCH (21:00)
--- NOTE | 2021-05-28 23:08 | P.GSCN ---
History of Present Illness Consult date: 05/28/21 Reason for Consult: Difficulty voiding Requesting physician: Richard Mendoza History of present illness: The patient is a 65-year-old white male who has taken tamsulosin for the past 2 years. For the past 1-2 weeks, he has experienced urgency but voided only small amounts. He describes his urinary stream is being fairly weak. He experiences nocturia 2-3. He denies dysuria and hematuria. He denies any prior history of UTIs or urolithiasis. He currently has an indwelling Malone catheter in place. He states that bladder scan showed a bladder volume of approximately 120 mL, and that only a small amount of urine was obtained upon Malone catheter placement. He is admitted with generalized weakness, poor appetite, and dyspnea on exertion. Review of Systems - Constitutional Reports weakness - Cardiovascular Reports decreased exercise tolerance, Reports dyspnea on exertion - Gastrointestinal Reports loss of appetite - Genitourinary Reports as per HPI Past Medical History Past Medical History: Atrial Fibrillation, Deep Vein Thrombosis (DVT), Hypertension, Osteoarthritis (OA), Pulmonary Embolus (PE) Additional Past Medical History / Comment(s): gout History of Any Multi-Drug Resistant Organisms: None Reported Past Surgical History: Pacemaker Type of Cardiac Device: Permanent Pacemaker Device Placement Date:: 2018 Past Psychological History: Anxiety Smoking Status: Current every day smoker Past Alcohol Use History: Abuse Past Drug Use History: None Reported - Past Family History Father Family Medical History: Hypertension Medications and Allergies Home Medications Medication Instructions Recorded Confirmed Type Apixaban [Eliquis] 5 mg PO BID 05/28/21 05/28/21 History Colchicine [Mitigare] 1.2 mg PO DAILY 05/28/21 05/28/21 History Cyanocobalamin (Vitamin B-12) 1,000 mcg PO DAILY 05/28/21 05/28/21 History [Vitamin B-12] Diltiazem HCl [Diltiazem HCl 24Hr 180 mg PO DAILY 05/28/21 05/28/21 History ER (XR)] Escitalopram [Lexapro] 10 mg PO DAILY 05/28/21 05/28/21 History Folic Acid 1 mg PO DAILY 05/28/21 05/28/21 History Metoprolol Succinate (ER) [Toprol 100 mg PO BID 05/28/21 05/28/21 History Xl] Rosuvastatin Calcium [Crestor] 5 mg PO HS 05/28/21 05/28/21 History Tamsulosin HCl [Flomax] 0.8 mg PO DAILY 05/28/21 05/28/21 History Thiamine [Vitamin B-1] 100 mg PO DAILY 05/28/21 05/28/21 History allopurinoL [Zyloprim] 100 mg PO BID 05/28/21 05/28/21 History oxyCODONE-APAP 10-325MG [Percocet 1 tab PO TID PRN 05/28/21 05/28/21 History 10-325 mg] traZODone HCL [Desyrel] 50 - 100 mg PO HS PRN 05/28/21 05/28/21 History Allergies Allergy/AdvReac Type Severity Reaction Status Date / Time No Known Allergies Allergy Verified 05/28/21 09:12 Surgical - Exam Vital Signs Temp Pulse Resp BP Pulse Ox 97.7 F 71 16 75/61 100 05/27/21 21:08 05/27/21 21:08 05/27/21 21:08 05/27/21 21:08 05/27/21 21:08 - General well developed, well nourished, no distress - Respiratory normal respiratory effort - Abdomen Abdomen: soft, non tender, no guarding, no rigid, no rebound - Genitourinary normal penis with no external lesions, testicles non-tender - Rectum Rectum: normal sphincter tone, no masses, other (Prostate 30 g, smooth) - Psychiatric oriented to time, oriented to person, oriented to place, speech is normal, memory intact Results - Labs 05/28/21 04:24 05/28/21 04:24 Abnormal Lab Results - Last 24 Hours (Table) 05/27/21 05/27/21 05/27/21 Range/Units 21:42 21:42 21:42 RBC 3.91 L (4.30-5.90) m/uL Hgb (13.0-17.5) gm/dL Hct (39.0-53.0) % MCV 106.5 H (80.0-100.0) fL MCH 35.5 H (25.0-35.0) pg Plt Count 104 L (150-450) k/uL Sodium 135 L (137-145) mmol/L Carbon Dioxide 20 L (22-30) mmol/L BUN 23 H (9-20) mg/dL Creatinine 4.25 H (0.66-1.25) mg/dL Glucose 124 H (74-99) mg/dL Plasma Lactic Acid Sea 3.1 H* (0.7-2.0) mmol/L Magnesium 1.1 L (1.6-2.3) mg/dL Total Bilirubin 1.7 H (0.2-1.3) mg/dL Troponin I (0.000-0.034) ng/mL Total Protein 5.9 L (6.3-8.2) g/dL Urine Protein (Negative) Urine Blood (Negative) Urine Bilirubin (Negative) Urine RBC (0-5) /hpf Hyaline Casts (0-2) /lpf Urine Mucus (None) /hpf 05/27/21 05/28/21 05/28/21 Range/Units 21:42 01:06 01:50 RBC (4.30-5.90) m/uL Hgb (13.0-17.5) gm/dL Hct (39.0-53.0) % MCV (80.0-100.0) fL MCH (25.0-35.0) pg Plt Count (150-450) k/uL Sodium (137-145) mmol/L Carbon Dioxide (22-30) mmol/L BUN (9-20) mg/dL Creatinine (0.66-1.25) mg/dL Glucose (74-99) mg/dL Plasma Lactic Acid Sea 2.3 H* (0.7-2.0) mmol/L Magnesium (1.6-2.3) mg/dL Total Bilirubin (0.2-1.3) mg/dL Troponin I 0.091 H* 0.083 H* (0.000-0.034) ng/mL Total Protein (6.3-8.2) g/dL Urine Protein (Negative) Urine Blood (Negative) Urine Bilirubin (Negative) Urine RBC (0-5) /hpf Hyaline Casts (0-2) /lpf Urine Mucus (None) /hpf 05/28/21 05/28/21 05/28/21 Range/Units 04:24 04:24 04:24 RBC 3.28 L (4.30-5.90) m/uL Hgb 11.6 L (13.0-17.5) gm/dL Hct 35.4 L (39.0-53.0) % MCV 107.9 H (80.0-100.0) fL MCH 35.5 H (25.0-35.0) pg Plt Count 85 L (150-450) k/uL Sodium 134 L (137-145) mmol/L Carbon Dioxide (22-30) mmol/L BUN 25 H (9-20) mg/dL Creatinine 4.36 H (0.66-1.25) mg/dL Glucose 102 H (74-99) mg/dL Plasma Lactic Acid Sea (0.7-2.0) mmol/L Magnesium 1.5 L (1.6-2.3) mg/dL Total Bilirubin (0.2-1.3) mg/dL Troponin I 0.069 H* (0.000-0.034) ng/mL Total Protein (6.3-8.2) g/dL Urine Protein (Negative) Urine Blood (Negative) Urine Bilirubin (Negative) Urine RBC (0-5) /hpf Hyaline Casts (0-2) /lpf Urine Mucus (None) /hpf 05/28/21 Range/Units 11:55 RBC (4.30-5.90) m/uL Hgb (13.0-17.5) gm/dL Hct (39.0-53.0) % MCV (80.0-100.0) fL MCH (25.0-35.0) pg Plt Count (150-450) k/uL Sodium (137-145) mmol/L Carbon Dioxide (22-30) mmol/L BUN (9-20) mg/dL Creatinine (0.66-1.25) mg/dL Glucose (74-99) mg/dL Plasma Lactic Acid Sea (0.7-2.0) mmol/L Magnesium (1.6-2.3) mg/dL Total Bilirubin (0.2-1.3) mg/dL Troponin I (0.000-0.034) ng/mL Total Protein (6.3-8.2) g/dL Urine Protein Trace H (Negative) Urine Blood Small H (Negative) Urine Bilirubin 1+ H (Negative) Urine RBC 8 H (0-5) /hpf Hyaline Casts 24 H (0-2) /lpf Urine Mucus Rare H (None) /hpf Diabetes panel 05/27/21 05/28/21 Range/Units 21:42 04:24 Sodium 135 L 134 L (137-145) mmol/L Potassium 4.0 3.8 (3.5-5.1) mmol/L Chloride 100 101 (98-107) mmol/L Carbon Dioxide 20 L 26 (22-30) mmol/L BUN 23 H 25 H (9-20) mg/dL Creatinine 4.25 H 4.36 H (0.66-1.25) mg/dL Glucose 124 H 102 H (74-99) mg/dL Calcium 8.8 8.4 (8.4-10.2) mg/dL AST 57 (17-59) U/L ALT 27 (4-49) U/L Alkaline Phosphatase 85 (38-126) U/L Total Protein 5.9 L (6.3-8.2) g/dL Albumin 3.6 (3.5-5.0) g/dL Thyroid panel 05/27/21 Range/Units 21:42 TSH 2.980 (0.465-4.680) mIU/L Calcium panel 05/27/21 05/28/21 Range/Units 21:42 04:24 Calcium 8.8 8.4 (8.4-10.2) mg/dL Albumin 3.6 (3.5-5.0) g/dL Pituitary panel 05/27/21 05/28/21 Range/Units 21:42 04:24 Sodium 135 L 134 L (137-145) mmol/L Potassium 4.0 3.8 (3.5-5.1) mmol/L Chloride 100 101 (98-107) mmol/L Carbon Dioxide 20 L 26 (22-30) mmol/L BUN 23 H 25 H (9-20) mg/dL Creatinine 4.25 H 4.36 H (0.66-1.25) mg/dL Glucose 124 H 102 H (74-99) mg/dL Calcium 8.8 8.4 (8.4-10.2) mg/dL TSH 2.980 (0.465-4.680) mIU/L Adrenal panel 05/27/21 05/28/21 Range/Units 21:42 04:24 Sodium 135 L 134 L (137-145) mmol/L Potassium 4.0 3.8 (3.5-5.1) mmol/L Chloride 100 101 (98-107) mmol/L Carbon Dioxide 20 L 26 (22-30) mmol/L BUN 23 H 25 H (9-20) mg/dL Creatinine 4.25 H 4.36 H (0.66-1.25) mg/dL Glucose 124 H 102 H (74-99) mg/dL Calcium 8.8 8.4 (8.4-10.2) mg/dL Total Bilirubin 1.7 H (0.2-1.3) mg/dL AST 57 (17-59) U/L ALT 27 (4-49) U/L Alkaline Phosphatase 85 (38-126) U/L Total Protein 5.9 L (6.3-8.2) g/dL Albumin 3.6 (3.5-5.0) g/dL - Imaging US - kidney/bladder: report reviewed Assessment and Plan (1) Benign prostatic hyperplasia with lower urinary tract symptoms Current Visit: Yes Status: Acute Code(s): N40.1 - BENIGN PROSTATIC HYPERPLASIA WITH LOWER URINARY TRACT SYMP SNOMED Code(s): 610596546 Plan: The patient currently has an indwelling Malone catheter in place, draining clear yellow urine. He has experienced burning since the Malone catheter was placed. I would suggest that the catheter be removed when no longer medically needed. He will continue to receive tamsulosin. I question whether some of his voiding difficulties recently may have been related to oliguria. If he continues to experience bothersome voiding symptoms, he will be advised to undergo urinary flow studies and office cystoscopy for further evaluation. Time with Patient: Greater than 30
[2021-05-28 23:26] LABS: Hemoglobin A1C 4.7 % (4.0-6.0)
[2021-05-28] MEDS: traZODone HCL 50 MG TAB PO PRN (23:31)
[2021-05-29] MEDS: oxyCODONE-APAP 5-325MG 1 EACH TAB PO PRN ×2 (04:56→08:30)
[2021-05-29 07:48] LABS: Basophils % (A) 0 %; Eosinophils # (A) 0.1 k/uL (0-0.7); Eosinophils % (A) 3 %; HGB 11.4 gm/dL (13.0-17.5); Lymphocytes # (A) 0.9 k/uL (1.0-4.8); Lymphocytes % (A) 23 %; MCH 35.8 pg (25.0-35.0); MCHC 32.7 g/dL (31.0-37.0); MCV 109.4 fL (80.0-100.0); Macrocytosis Marked; Mean Platelet Volume 9.7; Monocytes # (A) 0.3 k/uL (0-1.0); Monocytes % (A) 7 %; Neutrophils # (A) 2.5 k/uL (1.3-7.7); Neutrophils % (A) 63 %; RDW 13.8 % (11.5-15.5)
[2021-05-29 07:51] LABS: Platelet Count 88 k/uL (150-450)
[2021-05-29 08:05] LABS: Albumin 2.8 g/dL (3.5-5.0); Calcium 8.3 mg/dL (8.4-10.2); Magnesium 1.3 mg/dL (1.6-2.3); Phosphorus 3.9 mg/dL (2.5-4.5); Potassium 3.8 mmol/L (3.5-5.1); Total Bilirubin 0.8 mg/dL (0.2-1.3)
[2021-05-29] MEDS: METOPROLOL TARTRATE 25 MG TAB PO SCH ×2 (08:31→21:42)
[2021-05-29] MEDS: THIAMINE 100 MG TAB PO SCH (08:31)
[2021-05-29] MEDS: ESCITALOPRAM 10 MG TAB PO SCH (08:31)
[2021-05-29] MEDS: CYANOCOBALAMIN 500 MCG TAB PO SCH (08:31)
[2021-05-29] MEDS: DILTIAZEM CD 180 MG CAP.ER.24H PO SCH (08:31)
[2021-05-29] MEDS: TAMSULOSIN 0.4 MG CAP.ER.24H PO SCH (08:32)
[2021-05-29] MEDS: FOLIC ACID 1 MG TAB PO SCH (08:32)
[2021-05-29] MEDS: allopurinoL 100 MG TAB PO SCH ×2 (08:32→21:42)
[2021-05-29] MEDS: APIXABAN 2.5 MG TABLET PO SCH ×2 (08:32→21:42)
[2021-05-29] MEDS: FAMOTIDINE 20 MG TAB PO SCH (08:32)
--- NOTE | 2021-05-29 10:00 | ECHOF ---
Referral Reason:shortness of breath MEASUREMENTS -------- HEIGHT: 180.3 cm WEIGHT: 93.0 kg BP: 127/83 RVIDd: 3.4 cm (< 3.3) IVSd: 1.4 cm (0.6 - 1.1) LVIDd: 4.6 cm (3.9 - 5.3) LVPWd: 1.5 cm (0.6 - 1.1) IVSs: 2.0 cm LVIDs: 3.7 cm LVPWs: 1.8 cm Ao Diam: 3.5 cm (2.0 - 3.7) AV Cusp: 2.3 cm (1.5 - 2.6) LA Diam: 4.5 cm (2.7 - 3.8) MV EXCURSION: 22.560 mm (> 18.000) MV EF SLOPE: 158 mm/s (70 - 150) EPSS: 0.6 cm MV E Jorge: 1.01 m/s MV DecT: 185 ms MV A Jorge: 0.48 m/s MV E/A Ratio: 2.10 RAP: 5.00 mmHg RVSP: 48.84 mmHg FINDINGS -------- Pacemaker This was a technically difficult study with suboptimal views. The left ventricular size is normal. There is moderate concentric left ventricular hypertrophy. O verall left ventricular systolic function is normal with, an EF between 55 - 60 %. The right ventricle is mildly enlarged. The left atrial size is normal. The right atrial size is normal. Lumason used The aortic valve is trileaflet and appears structurally normal. The mitral valve is normal. There is trace mitral regurgitation. The tricuspid valve appears structurally normal. Moderate tricuspid regurgitation present. There is mild pulmonary hypertension. The right ventricular systolic pressure, as measured by Doppler, is 48.84mmHg. There is no pulmonic regurgitation present. The aortic root size is normal. IVC Not well visulized. There is no pericardial effusion. CONCLUSIONS -------- 1. Pacemaker 2. The left ventricular size is normal. 3. There is moderate concentric left ventricular hypertrophy. 4. Overall left ventricular systolic function is normal with, an EF between 55 - 60 %. 5. The right ventricle is mildly enlarged. 6. There is trace mitral regurgitation. 7. Moderate tricuspid regurgitation present. 8. There is mild pulmonary hypertension. 9. The right ventricular systolic pressure, as measured by Doppler, is 48.84mmHg. 10. There is no pericardial effusion. NETWORK DEVELOPER: Aide Mane RDCS
[2021-05-29] MEDS ORDERED: DEXAMETHASONE SOD PHOSPHATE 4 MG/ML 1 ML VIAL IV PRN (10:18)
[2021-05-29] MEDS: MAGNESIUM SULFATE-D5W PMX 1 GM in DEXTROSE/WATER 1 100ML.BAG IVPB SCH ×4 (11:23→16:11)
--- NOTE | 2021-05-29 11:50 | PN ---
PROGRESS NOTE Patient is seen for followup for acute kidney injury. Patient's renal function has currently improved. Creatinine is down from 4.3 to 3.1 mg/dL. He has underlying BPH and had urine retention s/p indwelling Malone catheter, now removed. The patient is currently not on any IV fluids or diuretics. Serologies were ordered as he had hematuria and mild proteinuria. All serologies are currently negative. Protein creatinine ratio 0.015. PHYSICAL EXAMINATION: On examination today, blood pressure 102/66, heart rate 63 per minute, he is afebrile. Examination of the heart S1, S2. Examination of the lungs, bilateral breath sounds are heard. Abdomen is soft, nontender. Examination of lower extremities shows no significant edema. CONVERTER SKIMMER exam grossly intact. LAB: Show sodium 137, potassium 3.8, chloride 107, BUN 26, creatinine 3.12, hemoglobin 11.4 g/dL. ASSESSMENT: 1. Acute kidney injury, currently improved. No significant retention was noted currently. The patient had an indwelling Malone catheter, now removed His ultrasound done yesterday is unremarkable. Serologies are all negative. Blood pressure is slightly on the lower side. No NSAIDs or ELENA inhibitors on board. Check post void residual. 2. Lactic acidosis. 3. Mild metabolic acidosis, currently resolved. 4. Hypotension, currently improved. PLAN: Continue to encourage increased oral intake. Check post void residual. Continue to avoid NSAIDs and ELENA inhibitors for now. Follow up as outpatient for CKD. MMODL / IJN: [id number] / MTDD
[2021-05-29 11:58] LABS: Complement C3 99.3 mg/dL (80.0-207.0)
--- NOTE | 2021-05-29 12:21 | P.PN ---
<Indio Armstrong - Last Filed: 05/29/21 12:13> Subjective Progress Note Date: 05/29/21 Hospital course: Patient is a 65-year-old male with a past medical history of hypertension, hyp erlipidemia, CAD status post pacemaker placement, atrial fibrillation on Eliquis, history of DVT, and gout who presented to the emergency department on 05/28/21 with a chief complaint of fatigue, and decreased exercise intolerance, and shortness of breath progressively worsening over the past few weeks resulting in dizziness, inability to complete ADLs, and recent fall. Patient was found to have thrombocytopenia with platelet count of 85, hyponatremia with sodium of 134, acute kidney injury with BUN of 25, creatinine of 4.36, and GFR of 13 with unknown baseline creatinine level, hypomagnesemia with magnesium of 1.5, and elevated troponin of 0.091, 0.083, and 0.069. Urinalysis was negative for infection. Chest x-ray completed negative for acute cardiopulmonary process. EKG showing a ventricular paced rhythm at 60 bpm. Carotid Dopplers showing no evidence of significant stenosis. CT brain negative for acute intercranial process, but negative for acute fracture or abnormality. CT ce rvical spine revealing moderate multilevel spondylitic changes but no acute fracture noted at this time. Renal ultrasound showing no significant abnormalities at this time. Patient was admitted under our services for acute kidney injury, elevated troponin, and thrombocytopenia with consults placed to nephrology, urology, cardiology, and neurology. Physical exam: Patient was seen and fully evaluated at the bedside. He reports feeling continued weakness, excess sleepiness, and dizziness upon sitting up or attempts at standing. He denies having any headache, changes in his vision or hearing, changes in or difficulties with speech, dysphasia, chest pain or palpitations, shortness of breath at rest, abdominal pain or discomfort, nausea, vomiting, or experiencing any numbness/tingling/weakness/swelling in his extremities at this time. JOHNNY improving with hydration. TSH normal findings at 1.480, vitamin B12 and folate pending. Vital signs reviewed and stable. General: Nontoxic, no distress and appears stated age. Derm: Skin warm and dry, normal coloration for ethnicity. Head: Atraumatic, normocephalic and symmetric. Eyes: EOMs intact, no lid lag, and anicteric sclera Mouth: no lip lesions, mucus membranes moist Cardiovascular: regular rate and rhythm with normal S1S2, no murmur, positive posterior tibial pulses bilaterally, and cap refill < 2 seconds. Lungs: Respirations even, regular, and unlabored on room air. Lungs CTA bila terally, no rhonchi, no rales, no wheezing, and no accessory muscle usage. Abdominal: Obese abdomen, soft, nontender to palpation, no guarding, no appreciable organomegaly Ext: ROM intact. No gross muscle atrophy, trace lower extremity edema, no contractures Neuro: Speech clear, face symmetrical and CN II-XII grossly intact with no noted focal neuro deficits Psych: Alert and oriented to person, place, time, and situation. Appropriate and pleasant affect. Assessment and Plan of Care: Acute kidney injury secondary to dehydration, improving Failure to thrive Weakness and inability to complete ADLs -Acute kidney injury as evidenced by initial BUN of 25, creatinine of 4.36, and GFR of 13 with unknown baseline creatinine level. Currently improving with BUN 26, creatinine 3.12, and GFR of 20. -Continued rehydration with IV fluids -Urology following recommending removal of Malone catheter with voiding challe nge. -Cardiology following planning for 2-D echocardiogram to assess cardiac structure and function and resume low-dose beta noé. -Neurology following recommending EEG and 2-D echo was continuous cardiac monitoring and every 4 hours neuro checks. -Nephrology following for JOHNNY on chronic kidney disease, ordered renal ultrasound which is negative for acute process or obstruction, working up for hypercoagulable state, peripheral neuropathy, and ordered a and a double- stranded DNA, C3 4, and ANCA to rule out vasculitis. -Hold nephrotoxic medications -Continued close monitoring with repeat a.m. -Treatment of underlying electrolyte abnormalities. -PT/OT consult Elevated troponin, possibly secondary to JOHNNY -Troponins of 0.091, 0.083, and 0.069. -EKG showing a ventricular paced rhythm at 60 bpm -Telemetry monitoring -Cardiology following, planning for 2-D echocardiogram to assess cardiac structure and function. Hypomagnesemia -Magnesium 1.3, replaced. -Continued close monitoring with repeat a.m. labs. Hypertension -Monitor vital signs and Continue daily medication regimen with diltiazem and metoprolol. Hyperlipidemia -Continue daily medication regimen with atorvastatin 40 mg nightly. CAD status post pacemaker placement -Continue daily medication regimen with Eliquis, Atorvastatin, Diltiazem, and metoprolol. -EKG showing a ventricular paced rhythm at 60 bpm Atrial fibrillation on Eliquis -Continue daily medication regimen with diltiazem, metoprolol, and anticoagulation with Eliquis. History of DVT -Continue anticoagulation with Eliquis. DVT prophylaxis: Eliquis Discussed with: Patient and RN Anticipated discharge date: Clinical course to determine Anticipated discharge place: Home with homecare vs SNF A total of [] minutes was spent on the care of this complex patient more than 50% of the time was spent in counseling and care coordination. Objective - Vital Signs Vital signs: Vital Signs Temp 98.2 F 05/29/21 04:40 Pulse 64 05/29/21 04:40 Resp 18 05/29/21 04:40 BP 127/83 05/29/21 04:40 Pulse Ox 95 05/29/21 04:40 Intake & Output 05/28/21 05/29/21 05/29/21 18:59 06:59 18:59 Intake Total 1490 Output Total 125 Balance 1490 -125 Weight 92 kg Intake: IV 1130 Sodium Chloride 0.9% 1, 1130 000 ml @ 130 mls/hr IV . [id number] STA Rx#:[id number] Oral 360 Output: Urine 125 Other: Voiding Method Indwelling Catheter Urinal # Bowel Movements 0 - Labs CBC & Chem 7: 05/29/21 07:20 05/29/21 07:20 Labs: Abnormal Lab Results - Last 24 Hours (Table) 05/28/21 Range/Units 11:55 Urine Protein Trace H (Negative) Urine Blood Small H (Negative) Urine Bilirubin 1+ H (Negative) Urine RBC 8 H (0-5) /hpf Hyaline Casts 24 H (0-2) /lpf Urine Mucus Rare H (None) /hpf <Sandie Page - Last Filed: 05/29/21 19:51> Subjective Patient seen and examined independently. Patient was also seen by Indio Armstrong NP and case was discussed. I am in agreement with subjective, physical exam, assessment and plan as written above and amended below. Patient reports being a [place] 2 weeks ago with similar complaints. We'll request records. He reports he did have an issue with his kidneys there. He states he has lost 20 pounds in 2 weeks and has not been eating or drinking well. General: non toxic, no distress, disheveled, appears older than stated age Derm: warm, dry Head: atraumatic, normocephalic, symmetric Eyes: EOMI, no lid lag, anicteric sclera Mouth: no lip lesion, mucus membranes moist Cardiovascular: S1S2 reg, no murmur, positive posterior tibial pulse bilateral, Lungs: CTA bilateral, no rhonchi, no rales , no accessory muscle use Abdominal: soft, nontender to palpation, no guarding, no appreciable organomega ly Ext: no gross muscle atrophy, no edema, no contractures Neuro: CN II-XI grossly intact, no focal neuro deficits Psych: Alert, oriented, appropriate affect Objective - Vital Signs Vital signs: Vital Signs Temp 98.2 F 05/29/21 04:40 Pulse 60 05/29/21 16:00 Resp 16 05/29/21 16:00 BP 108/71 05/29/21 16:00 Pulse Ox 95 05/29/21 04:40 Intake & Output 05/29/21 05/29/21 05/30/21 06:59 18:59 06:59 Intake Total 1060 Output Total 125 Balance -125 1060 Weight 92 kg Intake: Intake, IV Titration 400 Amount Magnesium Sulfate-D5w Pmx 400 1 gm In Dextrose/Water 1 100ml.bag @ 100 mls/hr IVPB Q1H CEDRICK Rx#: [id number] Oral 660 Output: Urine 125 Other: Voiding Method Urinal Urinal # Voids 1 # Bowel Movements 0 - Labs CBC & Chem 7: 05/29/21 07:20 05/29/21 07:20 Labs: Abnormal Lab Results - Last 24 Hours (Table) 05/29/21 05/29/21 Range/Units 07:20 07:20 RBC 3.20 L (4.30-5.90) m/uL Hgb 11.4 L (13.0-17.5) gm/dL Hct 35.0 L (39.0-53.0) % MCV 109.4 H (80.0-100.0) fL MCH 35.8 H (25.0-35.0) pg Plt Count 88 L (150-450) k/uL Lymphocytes # 0.9 L (1.0-4.8) k/uL Macrocytosis Marked A BUN 26 H (9-20) mg/dL Creatinine 3.12 H (0.66-1.25) mg/dL Glucose 111 H (74-99) mg/dL Calcium 8.3 L (8.4-10.2) mg/dL Magnesium 1.3 L (1.6-2.3) mg/dL Total Protein 5.0 L (6.3-8.2) g/dL Albumin 2.8 L (3.5-5.0) g/dL
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
[2021-05-29] MEDS: CYCLOBENZAPRINE 10 MG TAB PO PRN ×2 (13:07→21:42)
--- NOTE | 2021-05-29 13:30 | P.PN ---
Subjective This is a pleasant 65-year-old gentleman who follows with Dr. Cardona. He has a history of chronic atrial fibrillation, anticoagulated on Eliquis, DVT and bilateral PEs in the past, IVC filter, permanent pacemaker, hyperlipidemia. Cardiology is following for elevated troponin. He was recently admitted to [facility] with symptoms of chest discomfort at which time he underwent stress test which was negative according to the discharge summary and the patient. He presented here to the emergency department with complaints of generalized weakness, poor oral intake due to decreased appetite, nausea, syncope. He also has complaints of chest pain and dyspnea on exertion. He was found to be significantly hypotensive on admission. Elevated troponins which came back to be 0.091, 0.083 and 0.069. Patient was found to be in acute kidney failure with a creatinine of 4.25. Of note during his admission at [facility] on May 02 his creatinine was 1.44. Chest x-ray on admission showed no active cardiopulmonary disease. EKG showed atrial fibrillation with ventricular paced rhythm. Renal ultrasound showed no evidence of hydronephrosis. He has neurology and nephrology on consultation. Echocardiogram revealed EF 55-60%, moderate tricuspid regurgitation, mild pulmonary hypertension with RVSP of 48 mmHg. 05/29/2021: Patient seen and examined at bedside, no acute distress. He continues to not feel well, describes occasional chest discomfort, shortness of breath, and fatigue. Blood pressure 102/66, heart rate 63, afebrile, maintaining oxygen saturation on room air. Telemetry reviewed atrial fibrillation with ventricular paced rhythm HR 60s, Laboratory data review WBC 4.0, hemoglobin 11.4, platelets 88, sodium 137, potassium 3.8, BUN 26, serum creatinine 3.12 (4.36 yesterday), magnesium 1.3. GENERAL: In no acute distress. NECK: Supple without JVD or thyromegaly. LUNGS: Breath sounds clear to auscultation bilaterally. Respiration equal and unlabored. No wheezes, rales or rhonchi. HEART: Irregular rate and rhythm without murmurs, rubs or gallops. S1 and S2 heard. EXTREMITIES: Normal range of motion, no edema. No clubbing or cyanosis. Peripheral pulses intact. NEURO: Alert and oriented x 3. ASSESSMENT Elevated troponin, most likely secondary to JOHNNY, patient with recent negative stress test Acute Kidney Injury Generalized Weakness History of hypertension History of hyperlipidemia Hypomagnesemia History of DVTS and bilateral PEs s/p IVC filter placement Sick sinus syndrome s/p Permanent pacemaker Chronic persistent atrial fibrillation on Eliqius Frequent falls at home PLAN Echocardiogram obtained and reviewed We will interrogate patient's device Continue Eliquis 2.5 mg twice daily, atorvastatin 40 mg nightly, Cardizem 100 mg daily, metoprolol tartrate 25 mg twice a day Further recommendations based on clinical course Nurse Practitioner note has been reviewed, I agree with a documented findings and plan of care. Patient was seen and examined. Objective - Vital Signs Vital signs: Vital Signs Temp 98.2 F 05/29/21 04:40 Pulse 63 05/29/21 08:00 Resp 16 05/29/21 08:00 BP 102/66 05/29/21 08:00 Pulse Ox 95 05/29/21 04:40 Intake & Output 05/28/21 05/29/21 05/29/21 18:59 06:59 18:59 Intake Total 1490 180 Output Total 125 Balance 1490 -125 180 Weight 92 kg Intake: IV 1130 Sodium Chloride 0.9% 1, 1130 000 ml @ 130 mls/hr IV . Q7H42M STA Rx#:[id number] Oral 360 180 Output: Urine 125 Other: Voiding Method Indwelling Catheter Urinal Urinal # Voids 1 # Bowel Movements 0 - Labs CBC & Chem 7: 05/29/21 07:20 05/29/21 07:20 Labs: Abnormal Lab Results - Last 24 Hours (Table) 05/29/21 05/29/21 Range/Units 07:20 07:20 RBC 3.20 L (4.30-5.90) m/uL Hgb 11.4 L (13.0-17.5) gm/dL Hct 35.0 L (39.0-53.0) % MCV 109.4 H (80.0-100.0) fL MCH 35.8 H (25.0-35.0) pg Plt Count 88 L (150-450) k/uL Lymphocytes # 0.9 L (1.0-4.8) k/uL Macrocytosis Marked A BUN 26 H (9-20) mg/dL Creatinine 3.12 H (0.66-1.25) mg/dL Glucose 111 H (74-99) mg/dL Calcium 8.3 L (8.4-10.2) mg/dL Magnesium 1.3 L (1.6-2.3) mg/dL Total Protein 5.0 L (6.3-8.2) g/dL Albumin 2.8 L (3.5-5.0) g/dL
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
--- NOTE | 2021-05-29 16:05 | EEG ---
ELECTROENCEPHALOGRAM REPORT DATE OF SERVICE: 05/29/2021 PREAMBLE: This is a 65-year-old male who has presented with recurrent syncopal spells. This study is performed to evaluate for any epileptiform activity. Current medications zyloprim, Eliquis, Lipitor, Lexapro, folic acid, Percocet, Flomax and Desyrel. EEG FINDINGS: This is a 21 channel routine EEG recording in a patient utilizing 10/20 international system with referential and bipolar montages. Background consists of well developed, well regulated, moderate voltage activity in 8-9 hertz alpha. Background is posterior dominant and seems to be reactive to eye opening and closing. Photic driving response was not seen. Hyperventilation was not performed. Some drowsiness was seen with appearance of bilaterally symmetric theta frequency rhythm. Deeper stages of sleep were not clearly seen. No focal or generalized epileptiform activity was seen. IMPRESSION: This is a normal awake and drowsy EEG. No focal, lateralized, or epileptiform activity was seen. MMODL / IJN: [id number] /
[2021-05-29] MEDS: GABAPENTIN 100 MG CAP PO SCH ×2 (17:19→21:42)
[2021-05-29] MEDS: ATORVASTATIN 40 MG TAB PO SCH (21:42)
[2021-05-29] MEDS: traZODone HCL 50 MG TAB PO PRN (23:39)
[2021-05-30] MEDS: CYANOCOBALAMIN 500 MCG TAB PO SCH (09:11)
[2021-05-30] MEDS: APIXABAN 2.5 MG TABLET PO SCH ×2 (09:12→20:50)
[2021-05-30] MEDS: GABAPENTIN 100 MG CAP PO SCH ×3 (09:12→20:50)
[2021-05-30] MEDS: CYCLOBENZAPRINE 10 MG TAB PO PRN ×2 (09:12→20:50)
[2021-05-30] MEDS: allopurinoL 100 MG TAB PO SCH ×2 (09:12→20:50)
[2021-05-30] MEDS: METOPROLOL TARTRATE 25 MG TAB PO SCH ×2 (09:12→20:50)
[2021-05-30] MEDS: TAMSULOSIN 0.4 MG CAP.ER.24H PO SCH (09:12)
[2021-05-30] MEDS: FAMOTIDINE 20 MG TAB PO SCH (09:12)
[2021-05-30] MEDS: FOLIC ACID 1 MG TAB PO SCH (09:12)
[2021-05-30] MEDS: DILTIAZEM CD 180 MG CAP.ER.24H PO SCH (09:13)
[2021-05-30] MEDS: ESCITALOPRAM 10 MG TAB PO SCH (09:13)
[2021-05-30] MEDS: THIAMINE 100 MG TAB PO SCH (09:13)
[2021-05-30 09:37] LABS: HCT 33.7 % (39.0-53.0); HGB 11.1 gm/dL (13.0-17.5); MCH 35.9 pg (25.0-35.0); MCV 108.9 fL (80.0-100.0); Macrocytosis Marked; Mean Platelet Volume 8.6; Platelet Count 109 k/uL (150-450); RDW 13.9 % (11.5-15.5)
[2021-05-30 09:53] LABS: Albumin 2.8 g/dL (3.5-5.0); Calcium 8.8 mg/dL (8.4-10.2); Magnesium 1.8 mg/dL (1.6-2.3); Total Bilirubin 0.7 mg/dL (0.2-1.3)
--- NOTE | 2021-05-30 09:59 | P.PN ---
<Indio Armstrong - Last Filed: 05/30/21 11:25> Subjective Progress Note Date: 05/30/21 Hospital course: Patient is a 65-year-old male with a past medical history of hypertension, hyp erlipidemia, CAD status post pacemaker placement, atrial fibrillation on Eliquis, history of DVT, and gout who presented to the emergency department on 05/28/21 with a chief complaint of fatigue, and decreased exercise intolerance, and shortness of breath progressively worsening over the past few weeks resulting in dizziness, inability to complete ADLs, and recent fall. Patient was found to have thrombocytopenia with platelet count of 85, hyponatremia with sodium of 134, acute kidney injury with BUN of 25, creatinine of 4.36, and GFR of 13 with unknown baseline creatinine level, hypomagnesemia with magnesium of 1.5, and elevated troponin of 0.091, 0.083, and 0.069. Urinalysis was negative for infection. Chest x-ray completed negative for acute cardiopulmonary process. EKG showing a ventricular paced rhythm at 60 bpm. Carotid Dopplers showing no evidence of significant stenosis. CT brain negative for acute intercranial process, but negative for acute fracture or abnormality. CT ce rvical spine revealing moderate multilevel spondylitic changes but no acute fracture noted at this time. Renal ultrasound showing no significant abnormalities at this time. Patient was admitted under our services for acute kidney injury, elevated troponin, and thrombocytopenia with consults placed to nephrology, urology, cardiology, and neurology. Physical exam: Patient was seen and fully evaluated at the bedside. He reports feeling continued weakness, excess sleepiness, and dizziness upon sitting up or attempts at standing. Patient now reporting bilateral lower quadrant abdominal pain with distention and increased shortness of breath with exertion accompanied by loss of appetite. He denies having any headache, changes in his vision or hearing, changes in or difficulties with speech, dysphasia, chest pain or palpitations, nausea, vomiting, or experiencing any numbness/tingling/weakness/swelling in his extremities at this time. JOHNNY continues to improve with hydration, BUN now 25, creatinine 2.12, and GFR of 32.. Order placed for a CT chest abdomen and pelvis without contrast. Vital signs reviewed and stable. General: Nontoxic, no distress and appears stated age. Derm: Skin warm and dry, normal coloration for ethnicity. Head: Atraumatic, normocephalic and symmetric. Eyes: EOMs intact, no lid lag, and anicteric sclera Mouth: no lip lesions, mucus membranes moist Cardiovascular: regular rate and rhythm with normal S1S2, no murmur, positive posterior tibial pulses bilaterally, and cap refill < 2 seconds. Lungs: Respirations even, regular, and unlabored on room air. Lungs CTA bilaterally, no rhonchi, no rales, no wheezing, and no accessory muscle usage. Abdominal: Obese abdomen, soft, nontender to palpation, no guarding, no appreciable organomegaly Ext: ROM intact. No gross muscle atrophy, trace lower extremity edema, no contractures Neuro: Speech clear, face symmetrical and CN II-XII grossly intact with no noted focal neuro deficits Psych: Alert and oriented to person, place, time, and situation. Appropriate and pleasant affect. Assessment and Plan of Care: Acute kidney injury secondary to dehydration, improving Failure to thrive Weakness and inability to complete ADLs -Acute kidney injury as evidenced by initial BUN of 25, creatinine of 4.36, and GFR of 13 with unknown baseline creatinine level. Currently improving with BUN now 25, creatinine 2.12, and GFR of 32. -Continued hydration with IV fluids -Urology following, Malone catheter with voiding challenge. -Cardiology following planning for 2-D echocardiogram to assess cardiac structure and function and resume low-dose beta noé. -Neurology following recommending EEG and 2-D echo was continuous cardiac monitoring and every 4 hours neuro checks. -Nephrology following for JOHNNY on chronic kidney disease, ordered renal ultrasound which is negative for acute process or obstruction, working up for hypercoagulable state, peripheral neuropathy, and ordered a and a double- stranded DNA, C3 4, and ANCA to rule out vasculitis. -Hold nephrotoxic medications. -Continued close monitoring with repeat a.m. labs -Treatment of underlying electrolyte abnormalities. -PT/OT consult -TSH normal findings 1.480. Elevated troponin, possibly secondary to JOHNNY -Troponins of 0.091, 0.083, and 0.069. -EKG showing a ventricular paced rhythm at 60 bpm -Telemetry monitoring -Cardiology following, planning for 2-D echocardiogram to assess cardiac structure and function. Right and Left lower quadrant Abdominal pain and distention, possibly secondary to constipation as patient cannot recall time of his last bowel movement -CT abdomen and pelvis without contrast to be completed. -Urinalysis was negative for infection. -Renal function improving. -Bowel protocol. Hypomagnesemia, resolved Hypertension -Monitor vital signs and Continue daily medication regimen with diltiazem and metoprolol. Hyperlipidemia -Continue daily medication regimen with atorvastatin 40 mg nightly. CAD status post pacemaker placement -Continue daily medication regimen with Eliquis, Atorvastatin, Diltiazem, and metoprolol. -EKG showing a ventricular paced rhythm at 60 bpm Atrial fibrillation on Eliquis -Continue daily medication regimen with diltiazem, metoprolol, and anticoagulation with Eliquis. History of DVT -Continue anticoagulation with Eliquis. DVT prophylaxis: Eliquis Discussed with: Patient and RN Anticipated discharge date: Clinical course to determine Anticipated discharge place: Home with homecare vs SNF A total of 45 minutes was spent on the care of this complex patient more than 50% of the time was spent in counseling and care coordination. Objective - Vital Signs Vital signs: Vital Signs Temp 97.3 F L 05/30/21 08:00 Pulse 64 05/30/21 08:00 Resp 18 05/30/21 08:00 BP 125/79 05/30/21 08:00 Pulse Ox 96 05/30/21 08:00 Intake & Output 05/29/21 05/30/21 05/30/21 18:59 06:59 18:59 Intake Total 1060 240 Output Total 100 Balance 1060 -100 240 Weight 92.5 kg Intake: Intake, IV Titration 400 Amount Magnesium Sulfate-D5w Pmx 400 1 gm In Dextrose/Water 1 100ml.bag @ 100 mls/hr IVPB Q1H [facility] Rx#: [id number] Oral 660 240 Output: Urine 100 Other: Voiding Method Urinal Toilet Toilet Urinal Urinal # Voids 1 1 # Bowel Movements 0 - Labs CBC & Chem 7: 05/30/21 08:49 05/30/21 08:49 <Sandie Page - Last Filed: 05/30/21 19:40> Subjective Indio Armstrong NP rendered care for this patient independently, reviewed the fin dings and plan as documented in the note above. I did not physically speak with or examine the patient on this date. Gallbladder ultrasound reviewed revealing cholecystitis. Consult surgery. Andrzej Chan. Will also need follow-up for possible pulmonary nodule. Objective - Vital Signs Vital signs: Vital Signs Temp 97.8 F 05/30/21 11:48 Pulse 60 05/30/21 14:27 Resp 16 05/30/21 14:27 BP 107/66 05/30/21 14:27 Pulse Ox 97 05/30/21 14:27 Intake & Output 05/30/21 05/30/21 05/31/21 06:59 18:59 06:59 Intake Total 480 Output Total 100 Balance -100 480 Weight 92.5 kg Intake: Oral 480 Output: Urine 100 Other: Voiding Method Toilet Toilet Urinal Urinal # Voids 1 1 # Bowel Movements 0 - Labs CBC & Chem 7: 05/30/21 08:49 05/30/21 08:49 Labs: Abnormal Lab Results - Last 24 Hours (Table) 05/30/21 05/30/21 Range/Units 08:49 08:49 RBC 3.10 L (4.30-5.90) m/uL Hgb 11.1 L (13.0-17.5) gm/dL Hct 33.7 L (39.0-53.0) % MCV 108.9 H (80.0-100.0) fL MCH 35.9 H (25.0-35.0) pg Plt Count 109 L (150-450) k/uL Macrocytosis Marked A BUN 25 H (9-20) mg/dL Creatinine 2.12 H (0.66-1.25) mg/dL Glucose 121 H (74-99) mg/dL Total Protein 5.0 L (6.3-8.2) g/dL Albumin 2.8 L (3.5-5.0) g/dL
--- NOTE | 2021-05-30 11:54 | CT ---
EXAMINATION TYPE: CT ChestAbdPelvis wo con DATE OF EXAM: 05/30/2021 INDICATION: SOB, bilat lower quad pain COMPARISON: None CT DLP: 1097.8 mGycm CONTRAST: Performed without Oral Contrast , no intravenous contrast. TECHNIQUE: Axial images at 5 mm thick sections. Reconstructed images in the coronal plane. Delayed images through the kidneys. FINDINGS: CT CHEST: Portion of the thyroid visualized is normal. There is a 2.0 cm area of increased density within the posterior right lung base. Correlate for atele ctasis. Small pneumonia could be considered. Underlying mass is not excluded and follow-up is recomme nded. There is some pleural calcification within the mid posterior lateral lung purvis. Small right a nd minimal left pleural effusions are present. No enlarged mediastinal or hilar adenopathy is evident. The ascending aorta diameter at the level of the main pulmonary artery is 3.9 cm. The main pulmonary artery diameter at the bifurcation is 3.2 cm. Some coronary artery calcifications present. CT ABDOMEN: Liver: Normal Spleen: Normal Pancreas: Atrophic Adrenal glands: The adrenal glands are normal. Gallbladder: There may be some pericholecystic fluid. Consider evaluation with ultrasound. Acute chol ecystitis is not excluded. Kidneys: No masses are evident. No hydronephrosis is present. No cysts are present. There is a 0.2 cm calcification without obstruction of the inferior pole right kidney. Some perinephric stranding i s at the inferior poles of the bilateral kidneys. Correlate for pyelonephritis. Aorta: Vascular calcification is within the aorta. Inferior vena cava: There is a filter within the mid inferior vena cava. CT PELVIS: Loops of bowel within the abdomen and pelvis are normal. Diverticular changes are within the sigmoid colon. No inflammatory changes are adjacent to suggest acute diverticulitis. The study is without oral contrast limiting bowel evaluation. Appendix: Normal as visualized. Urinary bladder: Normal. Genitourinary structures: Prostate is prominent. Osseous structures: No suspicious lytic or sclerotic lesions are evident. IMPRESSIONS: 1. Diverticulosis without acute diverticulitis. 2. Nonobstructing inferior pole right renal stone measuring 0.2 cm. 3. There is some stranding adjacent to the inferior poles of bilateral kidneys. Consider pyelonephrit is. 4. Fluid may be adjacent to the gallbladder with some mild inflammatory changes. Correlate with ultra sound. Consider acute cholecystitis within the differential. 5. Density within the posterior right lung base is nonspecific. Correlate for atelectasis and pneumon ia. Underlying mass is not excluded and follow-up is recommended. 6. Small bilateral pleural effusions
--- NOTE | 2021-05-30 13:19 | P.PN ---
Subjective This is a pleasant 65-year-old gentleman who follows with Dr. Cardona. He has a history of chronic atrial fibrillation, anticoagulated on Eliquis, DVT and bilateral PEs in the past, IVC filter, permanent pacemaker implantation on May 19, 2019, hyperlipidemia. Cardiology is following for elevated troponin. He was recently admitted to [facility] with symptoms of chest discomfort at which time he underwent stress test which was negative according to the discharge summary and the patient. He presented here to the emergency department with c omplaints of generalized weakness, poor oral intake due to decreased appetite, nausea, syncope. He also has complaints of chest pain and dyspnea on exertion. He was found to be significantly hypotensive on admission. Elevated troponins which came back to be 0.091, 0.083 and 0.069. Patient was found to be in acute kidney failure with a creatinine of 4.25. Of note during his admission at [facility] on May 02 his creatinine was 1.44. Chest x-ray on admission showed no active cardiopulmonary disease. EKG showed atrial fibrillation with ventricular paced rhythm. Renal ultrasound showed no evidence of hydronephrosis. He has neurology and nephrology on consultation. Echocardiogram revealed EF 55-60%, moderate tricuspid regurgitation, mild pulmonary hypertension with RVSP of 48 mmHg. 05/30/2021: Patient seen and examined at bedside, no acute distress. He continues to not feel well, describes occasional chest discomfort, shortness of breath, and fatigue. Interrogation of patient's pacemaker revealed episodes of tachycardia less than a minute, most recently on May 2023, most likely atrial fibrillation with RVR. Device is set HR 175bpm. blood pressure 135/76, heart rate 60, afebrile, maintaining saturations on room air Telemetry reviewed atrial fibrillation with ventricular paced rhythm HR 60s, no episodes of RVR. Laboratory data review WBC 4.0, hemoglobin 11.1, platelets 109, sodium 137, potassium 4.0, BUN 25, serum creatinine 2.12, magnesium 1.8. Patient underwent EEG which was normal, no focal, lateralizing or epileptiform activity was seen. Patient underwent CT abdomen and pelvis which revealed diverticulosis without acute diverticulitis, nonobstructive, right renal stone, some stranding to the inferior pole to bilateral kidneys. Consider pyelonephritis. 2.0 cm area density posterior right lung base. FLuid adjacent to gallbladder, small bilateral pleural effusions. GENERAL: In no acute distress. NECK: Supple without JVD or thyromegaly. LUNGS: Breath sounds clear to auscultation bilaterally. Respiration equal and unlabored. No wheezes, rales or rhonchi. HEART: Irregular rate and rhythm without murmurs, rubs or gallops. S1 and S2 heard. EXTREMITIES: Normal range of motion, no edema. No clubbing or cyanosis. Peripheral pulses intact. NEURO: Alert and oriented x 3. ASSESSMENT Elevated troponin, most likely secondary to JOHNNY, patient with recent negative stress test Acute Kidney Injury, slowly improving, unclear baseline serum creatinine Generalized Weakness History of hypertension History of hyperlipidemia Hypomagnesemia History of DVTS and bilateral PEs s/p IVC filter placement Sick sinus syndrome s/p Permanent pacemaker Chronic persistent atrial fibrillation on Eliqius Frequent falls at home PLAN Echocardiogram obtained and reviewed. Patient's device interrogation completed, unlikely patient's tachycardia causing him to be hypotensive BP 70s/50s on admission, most likely a response. From a cardiology perspective we will continue current regimen Eliquis 2.5 mg twice daily, atorvastatin 40 mg nightly, Cardizem 180mg daily, metoprolol tartrate 25 mg twice a day Further recommendations based on clinical course Nurse Practitioner note has been reviewed, I agree with a documented findings and plan of care. Patient was seen and examined. Objective - Vital Signs Vital signs: Vital Signs Temp 97.8 F 05/30/21 11:48 Pulse 60 05/30/21 11:48 Resp 18 05/30/21 11:48 BP 135/76 05/30/21 11:48 Pulse Ox 98 05/30/21 11:48 Intake & Output 05/29/21 05/30/21 05/30/21 18:59 06:59 18:59 Intake Total 1060 240 Output Total 100 Balance 1060 -100 240 Weight 92.5 kg Intake: Intake, IV Titration 400 Amount Magnesium Sulfate-D5w Pmx 400 1 gm In Dextrose/Water 1 100ml.bag @ 100 mls/hr IVPB Q1H [facility] Rx#: [id number] Oral 660 240 Output: Urine 100 Other: Voiding Method Urinal Toilet Toilet Urinal Urinal # Voids 1 1 # Bowel Movements 0 - Labs CBC & Chem 7: 05/30/21 08:49 05/30/21 08:49 Labs: Abnormal Lab Results - Last 24 Hours (Table) 05/30/21 05/30/21 Range/Units 08:49 08:49 RBC 3.10 L (4.30-5.90) m/uL Hgb 11.1 L (13.0-17.5) gm/dL Hct 33.7 L (39.0-53.0) % MCV 108.9 H (80.0-100.0) fL MCH 35.9 H (25.0-35.0) pg Plt Count 109 L (150-450) k/uL Macrocytosis Marked A BUN 25 H (9-20) mg/dL Creatinine 2.12 H (0.66-1.25) mg/dL Glucose 121 H (74-99) mg/dL Total Protein 5.0 L (6.3-8.2) g/dL Albumin 2.8 L (3.5-5.0) g/dL
--- NOTE | 2021-05-30 14:14 | PN ---
PROGRESS NOTE Patient is seen for followup for acute kidney injury. His renal function continues to improve. Serum creatinine is down to 2.1 from 4.3 yesterday. Currently patient is not on any IV fluids or diuretics. He did have an indwelling Malone catheter initially but that was discontinued and he has been voiding well with no elevation in postvoid residual volumes. EXAMINATION: Today patient is comfortable. He is lying in bed. Blood pressure 135/76, heart rate 60 per minute. He is afebrile. Examination of the heart S1, S2. Examination of the lungs, bilateral breath sounds are heard. Abdomen is soft, nontender. Examination of lower extremities shows no significant edema. PARTS IDENTIFIER exam grossly intact. LABS: Show sodium 137, potassium 4.0, chloride 107, BUN 25, creatinine 2.1, hemoglobin 11.1 g/dL. ASSESSMENT: 1. Acute kidney injury, most likely acute tubular necrosis, currently improving. 2. Metabolic acidosis, now resolved. 3. Hypotension, currently improved. PLAN: Continue with Flomax. Encourage increased oral intake. Repeat labs in a.m. Patient will need outpatient followup. MMODL / IJN: [id number] /
[2021-05-30] MEDS: oxyCODONE-APAP 5-325MG 1 EACH TAB PO PRN ×2 (14:17→20:49)
[2021-05-30] MEDS ORDERED: DEXAMETHASONE SOD PHOSPHATE 4 MG/ML 1 ML VIAL IV PRN (14:24)
--- NOTE | 2021-05-30 14:34 | P.PN ---
Subjective Progress Note Date: 05/30/21 Principal diagnosis: Generalized weakness and difficulty with ambulation, cervical and lumbar pain, Patient was examined today at bedside, he is resting in his hospital bed. He is still having discomfort in his neck and low back. I did place an order yesterday for Decadron 4 mg every 6 hours, it was put in as when necessary and is for nausea and vomiting so the patient does not receive this medication, the order has been changed since then. Dr. Guillen did see the patient earlier this morning at bedside and discuss current treatment plans with him. Objective - Vital Signs Vital signs: Vital Signs Temp 97.8 F 05/30/21 11:48 Pulse 60 05/30/21 14:27 Resp 16 05/30/21 14:27 BP 107/66 05/30/21 14:27 Pulse Ox 97 05/30/21 14:27 Intake & Output 05/29/21 05/30/21 05/30/21 18:59 06:59 18:59 Intake Total 1060 480 Output Total 100 Balance 1060 -100 480 Weight 92.5 kg Intake: Intake, IV Titration 400 Amount Magnesium Sulfate-D5w Pmx 400 1 gm In Dextrose/Water 1 100ml.bag @ 100 mls/hr IVPB Q1H [facility] Rx#: [id number] Oral 660 480 Output: Urine 100 Other: Voiding Method Urinal Toilet Toilet Urinal Urinal # Voids 1 1 # Bowel Movements 0 - Exam Gen: AOx3, NAD VSS stable at this time Integument: No open lesions or sores visualized throughout the cervical, thoracic or lumbar spine. There is no wounds appreciated in the lower extremities. He has a notable effusion on the right knee, well-healed portal sites on the medial, lateral and suprapatellar region. Multiple scars are present in the bilateral lower extremities. Palpation: Patient has mild tenderness with palpation in the midline paraspinal region of both the cervical and lumbar spine, there is no tenderness in the thoracic spine. Patient is nontender with palpation surrounding the right knee. ROM: Range of motion is intact in all major muscle groups of the bilateral upper extremities Range of motion is intact in all major muscle groups of the bilateral lower extremities Passive range of motion of bilateral lower extremities does reproduce rigidity and stiffness Sensory Exam: Senory exam to light touch is intact C5-T1 Senosry exam to light touch is intact L2-S1 Motor: 4/5 strength is appreciated in all major muscle groups of bilateral upper and lower extremities Reflexes: Unable to appreciate any clonus in the bilateral lower extremities, difficulty assessed due to his general stiffness Negative Hoffmans in bilateral upper extremities Special Test: Straight leg raise on the bilateral legs demonstrates no acute findings logroll maneuver the bilateral hips reproduces no pain - Labs CBC & Chem 7: 05/30/21 08:49 05/30/21 08:49 Labs: Abnormal Lab Results - Last 24 Hours (Table) 05/30/21 05/30/21 Range/Units 08:49 08:49 RBC 3.10 L (4.30-5.90) m/uL Hgb 11.1 L (13.0-17.5) gm/dL Hct 33.7 L (39.0-53.0) % MCV 108.9 H (80.0-100.0) fL MCH 35.9 H (25.0-35.0) pg Plt Count 109 L (150-450) k/uL Macrocytosis Marked A BUN 25 H (9-20) mg/dL Creatinine 2.12 H (0.66-1.25) mg/dL Glucose 121 H (74-99) mg/dL Total Protein 5.0 L (6.3-8.2) g/dL Albumin 2.8 L (3.5-5.0) g/dL Assessment and Plan Assessment: Generalized weakness Difficulty with ambulation Multileve cervical spondylosis Multilevel lumbar spondylosis L3-L4 grade 1 anteriolisthesis Multiple medical comorbidities Plan: No emergent orthopedic surgical intervention recommended at this time Patient has a multitude of factors contributing to his current medical state. At this time patient is not demonstrating any acute cervical radicular or lumbar radicular symptoms. The cervical and lumbar pain have been present for many years. Taking consideration his previous stroke and TIA, this would demonstrate some residual weakness on the right-hand side especially in his lower extremity. He does have notable weakness and rigidity on exam, but again it is very difficult to determine if this is from his lumbar pathology versus medical deconditioning. Continue flexeril as needed, along with gabapentin 100mg, decadron order as been altered PT/OT evaluation, walker or cane for gait stabilization GI and DVT prophylaxis, and is on chronic blood thinners from previous TIA/stroke/A. fib Other nuclear medicine medical director recommendations Time with Patient: Less than 30
[2021-05-30] MEDS: DEXAMETHASONE SOD PHOSPHATE 4 MG/ML 1 ML VIAL IV SCH ×2 (17:34→22:33)
--- NOTE | 2021-05-30 19:25 | US ---
EXAMINATION TYPE: US gallbladder DATE OF EXAM: 05/30/2021 COMPARISON: CT CLINICAL HISTORY: CT suggestive of possible acute cholecystitis. CT suggestive of possible acute chol ecystitis. EXAM MEASUREMENTS: Liver Length: 18.7 cm Gallbladder Wall: 0.40 cm CBD: 0.49 cm Right Kidney: 10.4 x 4.0 x 4.1 cm Limited due to body habitus and overlying bowel gas. Pancreas: Tail obscured by gas. Liver: Increased echogenicity and attenuation. Appears enlarged and coarse in echotexture. Gallbladder: Wall appears to be thickened. Internal echoes seen within the gallbladder measuring 3.3 x 1.3 x 1.1 cm. Heterogeneous complex fluid-appearing area seen adjacent to the gallbladder: 3.6 x 3 .8 x 1.4 cm. Evidence for sonographic Browne's sign: Patient feels pain throughout abdomen. CBD: Portions seen appear to be wnl. Right Kidney: Limited. Hyperechoic focus seen lower pole: 0.5 x 0.5 x 0.2 cm. IMPRESSION: There is debris in the gallbladder. There is gallbladder wall thickening and consistent with acute an d chronic cholecystitis. There is minimal pericholecystic fluid. No dilated ducts. No focal liver def ect.
[2021-05-30 20:25] LABS: Glucose,Whole Blood 137 mg/dL (75-99)
[2021-05-30] MEDS: ATORVASTATIN 40 MG TAB PO SCH (20:50)
[2021-05-30] MEDS: INSULIN ASPART (NovoLOG) 100 UNIT/ML VIAL SQ SCH (20:50)
[2021-05-30] MEDS ORDERED: DOCUSATE 100 MG CAP PO PRN (22:32)
[2021-05-30] MEDS: PIPERACILLIN-TAZOBACTAM 3.375 GM in SODIUM CHLORIDE 0.9% 100 ML IVPB SCH (22:34)
[2021-05-30] MEDS: traZODone HCL 50 MG TAB PO PRN (22:46)
[2021-05-31 06:15] LABS: Glucose,Whole Blood 203 mg/dL (75-99)
[2021-05-31] MEDS: DEXAMETHASONE SOD PHOSPHATE 4 MG/ML 1 ML VIAL IV SCH ×4 (06:35→22:02)
[2021-05-31 06:40] LABS: HCT 36.6 % (39.0-53.0); HGB 12.1 gm/dL (13.0-17.5); MCH 35.8 pg (25.0-35.0); MCV 108.5 fL (80.0-100.0); Macrocytosis Moderate; Mean Platelet Volume 8.3; Platelet Count 138 k/uL (150-450); RBC 3.38 m/uL (4.30-5.90); RDW 13.9 % (11.5-15.5); WBC 3.8 k/uL (3.8-10.6)
[2021-05-31] MEDS: INSULIN ASPART (NovoLOG) 100 UNIT/ML VIAL SQ SCH ×4 (06:41→21:57)
[2021-05-31 06:55] LABS: Albumin 3.4 g/dL (3.5-5.0); Calcium 9.2 mg/dL (8.4-10.2); Potassium 4.3 mmol/L (3.5-5.1); Total Bilirubin 0.9 mg/dL (0.2-1.3); Total Protein 5.8 g/dL (6.3-8.2)
[2021-05-31] MEDS: GABAPENTIN 100 MG CAP PO SCH (08:13)
[2021-05-31] MEDS: PIPERACILLIN-TAZOBACTAM 3.375 GM in SODIUM CHLORIDE 0.9% 100 ML IVPB SCH ×3 (08:13→22:02)
[2021-05-31] MEDS: FAMOTIDINE 20 MG TAB PO SCH (08:13)
[2021-05-31] MEDS: FOLIC ACID 1 MG TAB PO SCH (08:14)
[2021-05-31] MEDS: DILTIAZEM CD 180 MG CAP.ER.24H PO SCH (08:15)
[2021-05-31] MEDS: CYANOCOBALAMIN 500 MCG TAB PO SCH (08:15)
[2021-05-31] MEDS: METOPROLOL TARTRATE 25 MG TAB PO SCH (08:15)
[2021-05-31] MEDS: ESCITALOPRAM 10 MG TAB PO SCH (08:15)
[2021-05-31] MEDS: THIAMINE 100 MG TAB PO SCH (08:15)
[2021-05-31] MEDS: APIXABAN 2.5 MG TABLET PO SCH ×2 (08:15→20:16)
[2021-05-31] MEDS: allopurinoL 100 MG TAB PO SCH ×2 (08:15→20:16)
[2021-05-31] MEDS: TAMSULOSIN 0.4 MG CAP.ER.24H PO SCH (08:16)
[2021-05-31] MEDS ORDERED: amLODIPine 5 MG TAB PO SCH (09:30)
[2021-05-31 11:35] LABS: Glucose,Whole Blood 138 mg/dL (75-99)
--- NOTE | 2021-05-31 11:57 | PN ---
PROGRESS NOTE Patient is seen for followup for acute kidney injury. Patient's renal function continues to improve. He is comfortable, awake, not in any acute distress. PHYSICAL EXAMINATION: Blood pressure is 163/91, heart rate 61 per minute. He is afebrile. Examination of the heart S1, S2. Examination of the lungs, bilateral breath sounds are heard. Abdomen is soft, nontender. Examination of lower extremities shows no significant edema. INTERNET MARKETING COORDINATOR exam grossly intact. LAB: Show sodium 138, potassium 4.3, chloride 105. BUN 28, creatinine 1.8, hemoglobin 12.1 g/dL. ASSESSMENT: 1. Acute kidney injury acute tubular necrosis currently improving. No evidence of obstruction on CT scan. 2. Metabolic acidosis, now improved. 3. Hypertension, blood pressure remains elevated. I will increase the Lopressor to 50 mg b.i.d. Heart rate is about 61 per minute. We will add parameters for the medication. MMODL / IJN: [id number] /
[2021-05-31] MEDS: oxyCODONE-APAP 5-325MG 1 EACH TAB PO PRN ×3 (12:43→21:57)
--- NOTE | 2021-05-31 12:55 | P.PN ---
Subjective This is a pleasant 65-year-old gentleman who follows with Dr. Cardona. He has a history of chronic atrial fibrillation, anticoagulated on Eliquis, DVT and bilateral PEs in the past, IVC filter, permanent pacemaker implantation on May 19, 2019, hyperlipidemia. Cardiology is following for elevated troponin. He was recently admitted to [facility] with symptoms of chest discomfort at which time he underwent Lexiscan stress test which was negative according to the discharge summary and the patient. He was instructed to follow up as an outpati ent. He presented to [facility] emergency department with complaints of generalized weakness, poor oral intake due to decreased appetite, nausea, syncope. He also has complaints of chest pain and dyspnea on exertion. He was found to be significantly hypotensive on admission BP 70s/60s. Elevated troponins which came back to be 0.091, 0.083 and 0.069. Patient was found to be in acute kidney failure with a creatinine of 4.25. Of note during his admission at [facility] on May 02 his creatinine was 1.44. Chest x-ray on admission showed no active cardiopulmonary disease. EKG showed atrial fibrillation with ventricular paced rhythm. Renal ultrasound showed no evidence of hydron ephrosis. Echocardiogram revealed EF 55-60%, moderate tricuspid regurgitation, mild pulmonary hypertension with RVSP of 48 mmHg. Interrogation of patient's pacemaker on 05/30 revealed episodes of tachycardia less than a minute, most recently on May 2023, most likely atrial fibrillation with RVR. Device is set HR 175bpm. 05/31/2021: Patient seen and examined at bedside, no acute distress. He continues to not feel well, describes occasional chest discomfort, shortness of breath, and fatigue. Patient underwent ultrasound of the gallbladder which revealed gallbladder wall thickening and consistent with acute on chronic cholecystitis. No dilated ducts no focal motor defect. Patient BP was elevated overnight and recieved IV hydralazine. Blood pressure 154/90, heart rate 63, afebrile, maintaining oxygen saturations on room air. Telemetry reviewed atrial fibrillation with ventricular paced rhythm HR 60s, no episodes of RVR. Laboratory data review renal function improving, BUN 28, serum creatinine, 1.8, sodium 138, potassium 4.3, WBC 3.8, hemoglobin 12.1, platelets 138. patient currently maintained on Eliquis 2.5 mg twice a day atorvastatin 40 mg nightly, Cardizem 180 mg daily, metorpolol tartrate, 25 mg twice a day which was increased today to 50 mg twice a day GENERAL: In no acute distress. NECK: Supple without JVD or thyromegaly. LUNGS: Breath sounds clear to auscultation bilaterally. Respiration equal and unlabored. No wheezes, rales or rhonchi. HEART: Irregular rate and rhythm without murmurs, rubs or gallops. S1 and S2 heard. EXTREMITIES: Normal range of motion, no edema. No clubbing or cyanosis. Peripheral pulses intact. NEURO: Alert and oriented x 3. ASSESSMENT Elevated troponin, most likely secondary to JOHNNY, patient with recent negative stress test Acute Kidney Injury, slowly improving, unclear baseline serum creatinine Generalized Weakness History of hypertension History of hyperlipidemia Hypomagnesemia History of DVTS and bilateral PEs s/p IVC filter placement Sick sinus syndrome s/p Permanent pacemaker Chronic persistent atrial fibrillation on Eliqius Frequent falls at home PLAN Echocardiogram obtained and reviewed. Patient's device interrogation completed, unlikely patient's tachycardia causing him to be hypotensive BP 70s/50s on admission, most likely a response. 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 Nurse Practitioner note has been reviewed, I agree with a documented findings and plan of care. Patient was seen and examined. Objective - Vital Signs Vital signs: Vital Signs Temp 98.6 F 05/31/21 08:10 Pulse 61 05/31/21 08:10 Resp 16 05/31/21 08:10 BP 163/91 05/31/21 08:10 Pulse Ox 99 05/31/21 08:10 Intake & Output 05/30/21 05/31/21 05/31/21 18:59 06:59 18:59 Intake Total 480 240 Balance 480 240 Weight 98.2 kg Intake: Oral 480 240 Other: Voiding Method Toilet Toilet Urinal Urinal # Voids 1 2 # Bowel Movements 0 - Labs CBC & Chem 7: 05/31/21 05:46 05/31/21 05:46 Labs: Abnormal Lab Results - Last 24 Hours (Table) 05/30/21 05/30/21 05/30/21 Range/Units 08:49 08:49 20:24 RBC 3.10 L (4.30-5.90) m/uL Hgb 11.1 L (13.0-17.5) gm/dL Hct 33.7 L (39.0-53.0) % MCV 108.9 H (80.0-100.0) fL MCH 35.9 H (25.0-35.0) pg Plt Count 109 L (150-450) k/uL Macrocytosis Marked A BUN 25 H (9-20) mg/dL Creatinine 2.12 H (0.66-1.25) mg/dL Glucose 121 H (74-99) mg/dL POC Glucose (mg/dL) 137 H (75-99) mg/dL AST (17-59) U/L Total Protein 5.0 L (6.3-8.2) g/dL Albumin 2.8 L (3.5-5.0) g/dL 05/31/21 05/31/21 05/31/21 Range/Units 05:46 05:46 06:14 RBC 3.38 L (4.30-5.90) m/uL Hgb 12.1 L (13.0-17.5) gm/dL Hct 36.6 L (39.0-53.0) % MCV 108.5 H (80.0-100.0) fL MCH 35.8 H (25.0-35.0) pg Plt Count 138 L (150-450) k/uL Macrocytosis BUN 28 H (9-20) mg/dL Creatinine 1.85 H (0.66-1.25) mg/dL Glucose 204 H (74-99) mg/dL POC Glucose (mg/dL) 203 H (75-99) mg/dL AST 63 H (17-59) U/L Total Protein 5.8 L (6.3-8.2) g/dL Albumin 3.4 L (3.5-5.0) g/dL
--- NOTE | 2021-05-31 13:12 | P.PN ---
Subjective Progress Note Date: 05/31/21 No new complaints today. Pt reports feeling improved in terms of energy level. CT A/P demonstrated evidence of acute on chronic cholecytitis, as well as possible pyelonephritis. Sx consulted, pending evaluation. Objective - Vital Signs Vital signs: Vital Signs Temp 98.0 F 05/31/21 12:00 Pulse 63 05/31/21 12:00 Resp 17 05/31/21 12:00 BP 154/90 05/31/21 12:00 Pulse Ox 98 05/31/21 12:00 Intake & Output 05/30/21 05/31/21 05/31/21 18:59 06:59 18:59 Intake Total 480 240 Balance 480 240 Weight 98.2 kg Intake: Oral 480 240 Other: Voiding Method Toilet Toilet Toilet Urinal Urinal Urinal # Voids 1 2 # Bowel Movements 0 - Exam Gen: awake, alert HEENT: normocephalic, atraumatic, good hearing acuity, moist mucous membranes Resp: good air exchange, breathing comfortably with no accessory muscle use CVS: good distal perfusion x 4, GI: TTP in RUQ, RLQ, LLQ; soft, bloated : no SPT, no CVAT, talbot catheter not present MSK: no pitting edema, no clubbing Neuro: non-focal, moving all extremities Psych: cooperative, euthymic mood - Labs CBC & Chem 7: 05/31/21 05:46 05/31/21 05:46 Labs: Abnormal Lab Results - Last 24 Hours (Table) 05/30/21 05/31/21 05/31/21 Range/Units 20:24 05:46 05:46 RBC 3.38 L (4.30-5.90) m/uL Hgb 12.1 L (13.0-17.5) gm/dL Hct 36.6 L (39.0-53.0) % MCV 108.5 H (80.0-100.0) fL MCH 35.8 H (25.0-35.0) pg Plt Count 138 L (150-450) k/uL BUN 28 H (9-20) mg/dL Creatinine 1.85 H (0.66-1.25) mg/dL Glucose 204 H (74-99) mg/dL POC Glucose (mg/dL) 137 H (75-99) mg/dL AST 63 H (17-59) U/L Total Protein 5.8 L (6.3-8.2) g/dL Albumin 3.4 L (3.5-5.0) g/dL 05/31/21 05/31/21 Range/Units 06:14 11:32 RBC (4.30-5.90) m/uL Hgb (13.0-17.5) gm/dL Hct (39.0-53.0) % MCV (80.0-100.0) fL MCH (25.0-35.0) pg Plt Count (150-450) k/uL BUN (9-20) mg/dL Creatinine (0.66-1.25) mg/dL Glucose (74-99) mg/dL POC Glucose (mg/dL) 203 H 138 H (75-99) mg/dL AST (17-59) U/L Total Protein (6.3-8.2) g/dL Albumin (3.5-5.0) g/dL Assessment and Plan Assessment: Acute kidney injury secondary to dehydration, improving Weakness and inability to complete ADLs -Acute kidney injury as evidenced by initial BUN of 25, creatinine of 4.36, and GFR of 13 with unknown baseline creatinine level. Currently improving with BUN now 28, creatinine 1.85 -Continued hydration with IV fluids -Urology following, Talbot removed, currently on flomax with good UOP -Cardiology following planning for 2-D echocardiogram to assess cardiac structure and function and resume low-dose beta noé. - EF: 55-60%, no WMA, mild RVE, mod LVH, mild pHTN -Neurology following recommending EEG -No epileptiform activity -Nephrology following for JOHNNY on chronic kidney disease, ordered renal ultrasound which is negative for acute process or obstruction, working up for hypercoagulable state, peripheral neuropathy, and ordered a and a double- stranded DNA, C3 4, and ANCA to rule out vasculitis. -Vasculitis workup negative -ATN secondary to hypotension, dehydration; improving -Hold nephrotoxic medications. -Continued close monitoring with repeat a.m. labs -Treatment of underlying electrolyte abnormalities. -PT/OT consult -TSH normal findings 1.480. Right and Left lower quadrant Abdominal pain and distention Acute on Chronic Cholecystitis Constipation -CT abdomen and pelvis without contrast to be completed. -showed AoC cholecystitis, possible pyelonephritis, however: -Urinalysis was negative for infection. -Surgery consult, pending -Zosyn 3.375gm q8h day 2/? -Bowel protocol. Hypertension -Monitor vital signs and Continue daily medication regimen with diltiazem and metoprolol. -dilt 180 CD daily -metoprolol increased to 50mg BID Hyperlipidemia -Continue daily medication regimen with atorvastatin 40 mg nightly. CAD status post pacemaker placement -Continue daily medication regimen with Eliquis, Atorvastatin, Diltiazem, and metoprolol. -EKG showing a ventricular paced rhythm at 60 bpm Atrial fibrillation on Eliquis -Continue daily medication regimen with diltiazem, metoprolol, and anticoagul ation with Eliquis. History of DVT -Continue anticoagulation with Eliquis. DVT prophylaxis: Eliquis Discussed with: Patient and RN Anticipated discharge date: Clinical course to determine Anticipated discharge place: Home with homecare vs SNF
[2021-05-31] MEDS ORDERED: MAGNESIUM CITRATE 296 ML BOTTLE PO ONE (13:15)
--- NOTE | 2021-05-31 15:20 | P.GSCN ---
<Bailey Leal - Last Filed: 05/31/21 14:57> History of Present Illness Consult date: 05/31/21 History of present illness: CHIEF COMPLAINT: Fatigue and weakness Reason for consult: Cholecystitis HISTORY OF PRESENT ILLNESS: This is a 65-year-old male with a known history of hypertension, hyperlipidemia, coronary artery disease, sick sinus syndrome with pacemaker, atrial fibrillation on Eliquis and nicotine dependence. History of DVT and PE with IVC filter. Patient presented to the hospital with complaints of weakness and fatigue. He was found to have acute kidney injury due to dehydration. He is followed by nephrology. Patient had been complaining of lower abdominal pain yesterday. He reports that his last bowel movement was about a week ago and he is been having issues with constipation. He is taking Colace and prune juice with no results. He is having flatus. Also complaining of some nausea. He has been eating regular diet. Patient reports that he has had some right upper quadrant tenderness and abdominal tenderness in the past. But no right upper quadrant tenderness recently. He has no pain in the right upper quadrant after eating. Surgical service was consult would for possible cholecystitis. PAST MEDICAL HISTORY: See list. PAST SURGICAL HISTORY: See list. MEDICATIONS: See list. ALLERGIES: See list. SOCIAL HISTORY: No illicit drug use. REVIEW OF SYSTEMS: CONSTITUTIONAL: Denies fever or chills. HEENT: Denies blurred vision, vision changes, or eye pain. Denies hemoptysis CARDIOVASCULAR: Denies chest pain or pressure. RESPIRATORY: No shortness of breath. GASTROINTESTINAL: See HPI for pertinent findings HEMATOLOGIC: Denies bleeding disorders. GENITOURINARY: Denies any blood in urine or increased urinary frequency. SKIN: Denies pruitis. Denies rash. PHYSICAL EXAM: VITAL SIGNS: Reviewed GENERAL: Well-developed in no acute distress. HEENT: No sclera icterus. Extraocular movements grossly intact. Moist buccal mucosa. Head is atraumatic, normocephalic. No nasal drainage. ABDOMEN: Soft. Nondistended. Nontender NEUROLOGIC: Alert and oriented. Cranial nerves II through XII grossly intact. LABORATORY DATA: WBC is 3.8 HGB 12.1 platelets 138 creatinine 1.85 AST slightly elevated at 63 ALT 26 total bilirubin 0.9 IMAGING: Computed tomography scan chest abdomen and pelvis showing diverticulosis without acute diverticulitis. Nonobstructing inferior pole right renal stone measuring 0.2 cm. There is some stranding adjacent to the inferior poles of bilateral kidneys. Consider pyelonephritis. Fluid may be adjacent to the gallbladder with some mild inflammatory changes. Correlate for with ultrasound. Consider acute cholecystitis. Density within the posterior right lung base is nonspecific. Small bilateral pleural effusions Gallbladder ultrasound showing debris in the gallbladder. There is gallbladder wall thickening and consistent with acute on chronic cholecystitis. There is minimal pericholecystic fluid. No dilated ducts. No focal liver defect. ASSESSMENT: 1. Possible acute on chronic cholecystitis 2. Constipation PLAN: -We will give citrate of magnesia for constipation -Continue regular diet -Continue stool softener -Continue antibiotics -Further recommendations forthcoming per surgeon Physician Mason Apprentice note has been reviewed by physician. Signing provider agrees with the documented findings, assessment, and plan of care. Past Medical History Past Medical History: Atrial Fibrillation, Deep Vein Thrombosis (DVT), Hypertension, Osteoarthritis (OA), Pulmonary Embolus (PE) Additional Past Medical History / Comment(s): gout History of Any Multi-Drug Resistant Organisms: None Reported Past Surgical History: Pacemaker Type of Cardiac Device: Permanent Pacemaker Device Placement Date:: 2018 Past Psychological History: Anxiety Smoking Status: Current every day smoker Past Alcohol Use History: Abuse Past Drug Use History: None Reported - Past Family History Father Family Medical History: Hypertension Medications and Allergies Home Medications Medication Instructions Recorded Confirmed Type Apixaban [Eliquis] 5 mg PO BID 05/28/21 05/28/21 History Colchicine [Mitigare] 1.2 mg PO DAILY 05/28/21 05/28/21 History Cyanocobalamin (Vitamin B-12) 1,000 mcg PO DAILY 05/28/21 05/28/21 History [Vitamin B-12] Diltiazem HCl [Diltiazem HCl 24Hr 180 mg PO DAILY 05/28/21 05/28/21 History ER (XR)] Escitalopram [Lexapro] 10 mg PO DAILY 05/28/21 05/28/21 History Folic Acid 1 mg PO DAILY 05/28/21 05/28/21 History Metoprolol Succinate (ER) [Toprol 100 mg PO BID 05/28/21 05/28/21 History Xl] Rosuvastatin Calcium [Crestor] 5 mg PO HS 05/28/21 05/28/21 History Tamsulosin HCl [Flomax] 0.8 mg PO DAILY 05/28/21 05/28/21 History Thiamine [Vitamin B-1] 100 mg PO DAILY 05/28/21 05/28/21 History allopurinoL [Zyloprim] 100 mg PO BID 05/28/21 05/28/21 History oxyCODONE-APAP 10-325MG [Percocet 1 tab PO TID PRN 05/28/21 05/28/21 History 10-325 mg] traZODone HCL [Desyrel] 50 - 100 mg PO HS PRN 05/28/21 05/28/21 History Allergies Allergy/AdvReac Type Severity Reaction Status Date / Time No Known Allergies Allergy Verified 05/28/21 09:12 Surgical - Exam Vital Signs Temp Pulse Resp BP Pulse Ox 97.7 F 71 16 75/61 100 05/27/21 21:08 05/27/21 21:08 05/27/21 21:08 05/27/21 21:08 05/27/21 21:08 Results - Labs 05/31/21 05:46 05/31/21 05:46 Abnormal Lab Results - Last 24 Hours (Table) 05/30/21 05/31/21 05/31/21 Range/Units 20:24 05:46 05:46 RBC 3.38 L (4.30-5.90) m/uL Hgb 12.1 L (13.0-17.5) gm/dL Hct 36.6 L (39.0-53.0) % MCV 108.5 H (80.0-100.0) fL MCH 35.8 H (25.0-35.0) pg Plt Count 138 L (150-450) k/uL BUN 28 H (9-20) mg/dL Creatinine 1.85 H (0.66-1.25) mg/dL Glucose 204 H (74-99) mg/dL POC Glucose (mg/dL) 137 H (75-99) mg/dL AST 63 H (17-59) U/L Total Protein 5.8 L (6.3-8.2) g/dL Albumin 3.4 L (3.5-5.0) g/dL 05/31/21 05/31/21 Range/Units 06:14 11:32 RBC (4.30-5.90) m/uL Hgb (13.0-17.5) gm/dL Hct (39.0-53.0) % MCV (80.0-100.0) fL MCH (25.0-35.0) pg Plt Count (150-450) k/uL BUN (9-20) mg/dL Creatinine (0.66-1.25) mg/dL Glucose (74-99) mg/dL POC Glucose (mg/dL) 203 H 138 H (75-99) mg/dL AST (17-59) U/L Total Protein (6.3-8.2) g/dL Albumin (3.5-5.0) g/dL Diabetes panel 05/31/21 Range/Units 05:46 Sodium 138 (137-145) mmol/L Potassium 4.3 (3.5-5.1) mmol/L Chloride 105 (98-107) mmol/L Carbon Dioxide 22 (22-30) mmol/L BUN 28 H (9-20) mg/dL Creatinine 1.85 H (0.66-1.25) mg/dL Glucose 204 H (74-99) mg/dL Calcium 9.2 (8.4-10.2) mg/dL AST 63 H (17-59) U/L ALT 26 (4-49) U/L Alkaline Phosphatase 81 (38-126) U/L Total Protein 5.8 L (6.3-8.2) g/dL Albumin 3.4 L (3.5-5.0) g/dL Calcium panel 05/31/21 Range/Units 05:46 Calcium 9.2 (8.4-10.2) mg/dL Albumin 3.4 L (3.5-5.0) g/dL Pituitary panel 05/31/21 Range/Units 05:46 Sodium 138 (137-145) mmol/L Potassium 4.3 (3.5-5.1) mmol/L Chloride 105 (98-107) mmol/L Carbon Dioxide 22 (22-30) mmol/L BUN 28 H (9-20) mg/dL Creatinine 1.85 H (0.66-1.25) mg/dL Glucose 204 H (74-99) mg/dL Calcium 9.2 (8.4-10.2) mg/dL Adrenal panel 05/31/21 Range/Units 05:46 Sodium 138 (137-145) mmol/L Potassium 4.3 (3.5-5.1) mmol/L Chloride 105 (98-107) mmol/L Carbon Dioxide 22 (22-30) mmol/L BUN 28 H (9-20) mg/dL Creatinine 1.85 H (0.66-1.25) mg/dL Glucose 204 H (74-99) mg/dL Calcium 9.2 (8.4-10.2) mg/dL Total Bilirubin 0.9 (0.2-1.3) mg/dL AST 63 H (17-59) U/L ALT 26 (4-49) U/L Alkaline Phosphatase 81 (38-126) U/L Total Protein 5.8 L (6.3-8.2) g/dL Albumin 3.4 L (3.5-5.0) g/dL <Justus Mccurdy - Last Filed: 05/31/21 18:40> History of Present Illness History of present illness: As above. Patient had a CAT scan because he was complaining of lower abdominal pain. CAT scan showed some gallbladder wall thickening. Ultrasound showed wall thickening as well as internal debris. No pain currently. Gallbladder wall thickening could be on the basis of cardiogenic edema. Nontender on exam currently. We'll follow closely with you. Surgical - Exam Vital Signs Temp Pulse Resp BP Pulse Ox 97.7 F 71 16 75/61 100 05/27/21 21:08 05/27/21 21:08 05/27/21 21:08 05/27/21 21:08 05/27/21 21:08 Results - Labs 05/31/21 05:46 05/31/21 05:46 Abnormal Lab Results - Last 24 Hours (Table) 05/30/21 05/31/21 05/31/21 Range/Units 20:24 05:46 05:46 RBC 3.38 L (4.30-5.90) m/uL Hgb 12.1 L (13.0-17.5) gm/dL Hct 36.6 L (39.0-53.0) % MCV 108.5 H (80.0-100.0) fL MCH 35.8 H (25.0-35.0) pg Plt Count 138 L (150-450) k/uL BUN 28 H (9-20) mg/dL Creatinine 1.85 H (0.66-1.25) mg/dL Glucose 204 H (74-99) mg/dL POC Glucose (mg/dL) 137 H (75-99) mg/dL AST 63 H (17-59) U/L Total Protein 5.8 L (6.3-8.2) g/dL Albumin 3.4 L (3.5-5.0) g/dL 05/31/21 05/31/21 05/31/21 Range/Units 06:14 11:32 16:51 RBC (4.30-5.90) m/uL Hgb (13.0-17.5) gm/dL Hct (39.0-53.0) % MCV (80.0-100.0) fL MCH (25.0-35.0) pg Plt Count (150-450) k/uL BUN (9-20) mg/dL Creatinine (0.66-1.25) mg/dL Glucose (74-99) mg/dL POC Glucose (mg/dL) 203 H 138 H 157 H (75-99) mg/dL AST (17-59) U/L Total Protein (6.3-8.2) g/dL Albumin (3.5-5.0) g/dL Diabetes panel 05/31/21 Range/Units 05:46 Sodium 138 (137-145) mmol/L Potassium 4.3 (3.5-5.1) mmol/L Chloride 105 (98-107) mmol/L Carbon Dioxide 22 (22-30) mmol/L BUN 28 H (9-20) mg/dL Creatinine 1.85 H (0.66-1.25) mg/dL Glucose 204 H (74-99) mg/dL Calcium 9.2 (8.4-10.2) mg/dL AST 63 H (17-59) U/L ALT 26 (4-49) U/L Alkaline Phosphatase 81 (38-126) U/L Total Protein 5.8 L (6.3-8.2) g/dL Albumin 3.4 L (3.5-5.0) g/dL Calcium panel 05/31/21 Range/Units 05:46 Calcium 9.2 (8.4-10.2) mg/dL Albumin 3.4 L (3.5-5.0) g/dL Pituitary panel 05/31/21 Range/Units 05:46 Sodium 138 (137-145) mmol/L Potassium 4.3 (3.5-5.1) mmol/L Chloride 105 (98-107) mmol/L Carbon Dioxide 22 (22-30) mmol/L BUN 28 H (9-20) mg/dL Creatinine 1.85 H (0.66-1.25) mg/dL Glucose 204 H (74-99) mg/dL Calcium 9.2 (8.4-10.2) mg/dL Adrenal panel 05/31/21 Range/Units 05:46 Sodium 138 (137-145) mmol/L Potassium 4.3 (3.5-5.1) mmol/L Chloride 105 (98-107) mmol/L Carbon Dioxide 22 (22-30) mmol/L BUN 28 H (9-20) mg/dL Creatinine 1.85 H (0.66-1.25) mg/dL Glucose 204 H (74-99) mg/dL Calcium 9.2 (8.4-10.2) mg/dL Total Bilirubin 0.9 (0.2-1.3) mg/dL AST 63 H (17-59) U/L ALT 26 (4-49) U/L Alkaline Phosphatase 81 (38-126) U/L Total Protein 5.8 L (6.3-8.2) g/dL Albumin 3.4 L (3.5-5.0) g/dL
[2021-05-31 16:53] LABS: Glucose,Whole Blood 157 mg/dL (75-99)
[2021-05-31 19:57] LABS: Glucose,Whole Blood 211 mg/dL (75-99)
[2021-05-31] MEDS: METOPROLOL TARTRATE 50 MG TAB PO SCH (20:16)
[2021-05-31] MEDS: DOCUSATE 100 MG CAP PO SCH (20:16)
[2021-05-31] MEDS: ATORVASTATIN 40 MG TAB PO SCH (20:16)
[2021-05-31] MEDS: traZODone HCL 50 MG TAB PO PRN (21:57)
[2021-06-01] MEDS: oxyCODONE-APAP 5-325MG 1 EACH TAB PO PRN ×5 (01:59→21:48)
[2021-06-01 03:22] LABS: Glucose,Whole Blood 118 mg/dL (75-99)
[2021-06-01 06:22] LABS: Glucose,Whole Blood 123 mg/dL (75-99)
[2021-06-01] MEDS: INSULIN ASPART (NovoLOG) 100 UNIT/ML VIAL SQ SCH ×4 (06:22→21:31)
[2021-06-01] MEDS: DEXAMETHASONE SOD PHOSPHATE 4 MG/ML 1 ML VIAL IV SCH ×2 (06:25→12:57)
[2021-06-01 08:00] LABS: Calcium 9.7 mg/dL (8.4-10.2); Magnesium 1.7 mg/dL (1.6-2.3); Potassium 4.9 mmol/L (3.5-5.1)
[2021-06-01 08:15] LABS: Basophils % (A) 0 %; Eosinophils % (A) 0 %; HCT 37.8 % (39.0-53.0); HGB 12.2 gm/dL (13.0-17.5); Lymphocytes # (A) 0.4 k/uL (1.0-4.8); Lymphocytes % (A) 4 %; MCH 35.1 pg (25.0-35.0); MCHC 32.3 g/dL (31.0-37.0); MCV 108.7 fL (80.0-100.0); Macrocytosis Marked; Mean Platelet Volume 8.9; Monocytes # (A) 0.3 k/uL (0-1.0); Monocytes % (A) 3 %; Neutrophils # (A) 8.7 k/uL (1.3-7.7); Neutrophils % (A) 93 %; Platelet Count 178 k/uL (150-450); RBC 3.48 m/uL (4.30-5.90); RDW 14.9 % (11.5-15.5); WBC 9.4 k/uL (3.8-10.6)
[2021-06-01] MEDS: DILTIAZEM CD 180 MG CAP.ER.24H PO SCH (08:50)
[2021-06-01] MEDS: allopurinoL 100 MG TAB PO SCH ×2 (08:50→20:58)
[2021-06-01] MEDS: TAMSULOSIN 0.4 MG CAP.ER.24H PO SCH (08:51)
[2021-06-01] MEDS: CYANOCOBALAMIN 500 MCG TAB PO SCH (08:51)
[2021-06-01] MEDS: THIAMINE 100 MG TAB PO SCH (08:51)
[2021-06-01] MEDS: METOPROLOL TARTRATE 50 MG TAB PO SCH ×2 (08:51→20:58)
[2021-06-01] MEDS: ESCITALOPRAM 10 MG TAB PO SCH (08:51)
[2021-06-01] MEDS: PIPERACILLIN-TAZOBACTAM 3.375 GM in SODIUM CHLORIDE 0.9% 100 ML IVPB SCH ×2 (08:52→16:31)
[2021-06-01] MEDS: FOLIC ACID 1 MG TAB PO SCH (08:52)
[2021-06-01] MEDS: FAMOTIDINE 20 MG TAB PO SCH (08:52)
[2021-06-01] MEDS: APIXABAN 2.5 MG TABLET PO SCH ×2 (08:52→20:58)
[2021-06-01] MEDS: DOCUSATE 100 MG CAP PO SCH ×2 (08:52→20:50)
--- NOTE | 2021-06-01 09:18 | P.PN ---
Subjective Progress Note Date: 06/01/21 Principal diagnosis: Generalized weakness and difficulty with ambulation, cervical and lumbar pain Patient was examined today at bedside, he is resting in his hospital bed. Bj meyers notes improvement with steroids that were provided. Plan for 1 additional dose of 4 mg of IV Decadron. We discussed being discharged on a Medrol Dosepak to help with his symptoms. Recommend continuation of anti-inflammatories and oral Tylenol. Patient is taking oxycodone as needed for chronic neck and low back pain. Objective - Vital Signs Vital signs: Vital Signs Temp 98.2 F 06/01/21 08:45 Pulse 61 06/01/21 08:45 Resp 16 06/01/21 08:45 BP 154/104 06/01/21 08:45 Pulse Ox 99 06/01/21 08:45 Intake & Output 05/31/21 06/01/21 06/01/21 18:59 06:59 18:59 Intake Total 1020 580 240 Output Total 300 150 Balance 720 430 240 Weight 100 kg Intake: Intake, IV Titration 100 Amount Piperacillin-Tazobactam 3 100 .375 gm In Sodium Chloride 0.9% 100 ml @ 25 mls/hr IVPB Q8HR [facility] Rx# :[id number] Oral 1020 480 240 Output: Urine 300 150 Other: Voiding Method Toilet Toilet Urinal Urinal # Voids 3 # Bowel Movements 1 - Exam Gen: AOx3, NAD VSS stable at this time Integument: No open lesions or sores visualized throughout the cervical, thoracic or lumbar spine. There is no wounds appreciated in the lower extremities. He has a notable effusion on the right knee, well-healed portal sites on the medial, lateral and suprapatellar region. Multiple scars are present in the bilateral lower extremities. Palpation: Patient has mild tenderness with palpation in the midline paraspinal region of both the cervical and lumbar spine, there is no tenderness in the thoracic spine. Patient is nontender with palpation surrounding the right knee. ROM: Range of motion is intact in all major muscle groups of the bilateral upper extremities Range of motion is intact in all major muscle groups of the bilateral lower extremities Passive range of motion of bilateral lower extremities does reproduce rigidity and stiffness Sensory Exam: Senory exam to light touch is intact C5-T1 Senosry exam to light touch is intact L2-S1 Motor: 4/5 strength is appreciated in all major muscle groups of bilateral upper and lower extremities Reflexes: Unable to appreciate any clonus in the bilateral lower extremities, difficulty assessed due to his general stiffness Negative Hoffmans in bilateral upper extremities Special Test: Straight leg raise on the bilateral legs demonstrates no acute findings logroll maneuver the bilateral hips reproduces no pain - Labs CBC & Chem 7: 06/01/21 07:23 06/01/21 07:23 Labs: Abnormal Lab Results - Last 24 Hours (Table) 05/31/21 05/31/21 05/31/21 Range/Units 11:32 16:51 19:55 RBC (4.30-5.90) m/uL Hgb (13.0-17.5) gm/dL Hct (39.0-53.0) % MCV (80.0-100.0) fL MCH (25.0-35.0) pg Neutrophils # (1.3-7.7) k/uL Lymphocytes # (1.0-4.8) k/uL Macrocytosis BUN (9-20) mg/dL Creatinine (0.66-1.25) mg/dL Glucose (74-99) mg/dL POC Glucose (mg/dL) 138 H 157 H 211 H (75-99) mg/dL 06/01/21 06/01/21 06/01/21 Range/Units 03:20 06:20 07:23 RBC 3.48 L (4.30-5.90) m/uL Hgb 12.2 L (13.0-17.5) gm/dL Hct 37.8 L (39.0-53.0) % MCV 108.7 H (80.0-100.0) fL MCH 35.1 H (25.0-35.0) pg Neutrophils # 8.7 H (1.3-7.7) k/uL Lymphocytes # 0.4 L (1.0-4.8) k/uL Macrocytosis Marked A BUN (9-20) mg/dL Creatinine (0.66-1.25) mg/dL Glucose (74-99) mg/dL POC Glucose (mg/dL) 118 H 123 H (75-99) mg/dL 06/01/21 Range/Units 07:23 RBC (4.30-5.90) m/uL Hgb (13.0-17.5) gm/dL Hct (39.0-53.0) % MCV (80.0-100.0) fL MCH (25.0-35.0) pg Neutrophils # (1.3-7.7) k/uL Lymphocytes # (1.0-4.8) k/uL Macrocytosis BUN 32 H (9-20) mg/dL Creatinine 1.50 H (0.66-1.25) mg/dL Glucose 115 H (74-99) mg/dL POC Glucose (mg/dL) (75-99) mg/dL Assessment and Plan Assessment: Generalized weakness Difficulty with ambulation Multileve cervical spondylosis Multilevel lumbar spondylosis L3-L4 grade 1 anteriolisthesis Multiple medical comorbidities Plan: No orthopedic spine surgical intervention recommended at this time Flexeril and gabapentin have been discontinued. Will utilize 1 additional dose of 4 mg of IV Decadron. Plan for discharge on a Medrol Dosepak to help with symptoms PT/OT evaluation, walker or cane for gait stabilization GI and DVT prophylaxis, and is on chronic blood thinners from previous TIA/stroke/A. fib Other medical transcription editor recommendations Discharge planning: After discussion with nursing today, patient will be going to subacute rehab. Patient will be provided with our office information to follow-up as needed with Dr. Guillen for further discussion of treatment Time with Patient: Less than 30
--- NOTE | 2021-06-01 09:55 | P.PN ---
Subjective Progress Note Date: 05/31/21 05/31/2021: Patient was seen for a follow-up. Denies any more syncopal spells. Patient is sitting in the recliner comfortably. Complains of weakness in the lower limbs. He has severe arthritis of the knees, ankles, hips and multiple joints. He claims that he has severe osteoarthritis. Patient also is being evaluated for possible cholecystitis. Telemetry showing V-paced rhythm, some P VCs, atrial fibrillation at times. 05/29/2021: Patient was seen for a follow-up. Patient initially seen by Dr. Zheng Linda. Please refer to his note for details. Patient has presented with recurrent syncopal spells. Patient says that he passed out 3 times. One time he passed out in the parking lot, and couple days later he passed out twice in the hallway. There were no report of tongue bite or loss of control of urine or convulsive activity. He gets presyncopal symptoms consisting of dizziness, lightheadedness. He had 2 episodes last Saturday. He also feels generalized weak, short of breath. Patient was noted to have significant hypotension with systolic blood pressure in the 70s. Patient has history of a syncopal spell versus seizure in 1979, the details which patient does not know. Objective - Vital Signs Vital signs: Vital Signs Temp 98 F 05/31/21 12:55 Pulse 64 05/31/21 14:54 Resp 18 05/31/21 12:55 BP 139/84 05/31/21 12:55 Pulse Ox 98 05/31/21 14:54 Intake & Output 05/30/21 05/31/21 05/31/21 18:59 06:59 18:59 Intake Total 480 1020 Output Total 300 Balance 480 720 Weight 98.2 kg Intake: Oral 480 1020 Output: Urine 300 Other: Voiding Method Toilet Toilet Toilet Urinal Urinal Urinal # Voids 1 2 # Bowel Movements 0 - Exam Patient is an elderly male, in no acute distress. Patient is alert awake oriented to time place and person. Speech and language functions are normal. No aphasia or dysarthria. Attention, concentration and fund of knowledge is adequate. On cranial examination, pupils are round and reacting to light, visual purvis are full on confrontation, extraocular muscles are intact with no nystagmus. Face is symmetric, tongue protrudes to the midline. Palatal elevation and sensation normal, hearing and shoulder shrug normal, facial sensation normal. Shoulder shrug normal. On muscle strength testing, there is no pronator drift and the strength is normal in arms distally and proximally. He has significant arthritis particularly of the knees and hips, therefore he was not getting good effort. Hip flexion was about 3+ with lot of guarding from pain, and knee extension also weak bilaterally, which she attributes to severe arthritis. Ankles are normal. Deep tendon reflexes are 1+ and plantars are downgoing. Sensory to touch is equal with no neglect. Cerebellar function showed no ataxia for upckiu-hk-mpik testing. No dysd iadochokinesia. Tone and bulk of muscles normal. Gait not checked. - Labs CBC & Chem 7: 06/01/21 07:23 06/01/21 07:23 Labs: Abnormal Lab Results - Last 24 Hours (Table) 05/30/21 05/31/21 05/31/21 Range/Units 20:24 05:46 05:46 RBC 3.38 L (4.30-5.90) m/uL Hgb 12.1 L (13.0-17.5) gm/dL Hct 36.6 L (39.0-53.0) % MCV 108.5 H (80.0-100.0) fL MCH 35.8 H (25.0-35.0) pg Plt Count 138 L (150-450) k/uL BUN 28 H (9-20) mg/dL Creatinine 1.85 H (0.66-1.25) mg/dL Glucose 204 H (74-99) mg/dL POC Glucose (mg/dL) 137 H (75-99) mg/dL AST 63 H (17-59) U/L Total Protein 5.8 L (6.3-8.2) g/dL Albumin 3.4 L (3.5-5.0) g/dL 05/31/21 05/31/21 05/31/21 Range/Units 06:14 11:32 16:51 RBC (4.30-5.90) m/uL Hgb (13.0-17.5) gm/dL Hct (39.0-53.0) % MCV (80.0-100.0) fL MCH (25.0-35.0) pg Plt Count (150-450) k/uL BUN (9-20) mg/dL Creatinine (0.66-1.25) mg/dL Glucose (74-99) mg/dL POC Glucose (mg/dL) 203 H 138 H 157 H (75-99) mg/dL AST (17-59) U/L Total Protein (6.3-8.2) g/dL Albumin (3.5-5.0) g/dL Assessment and Plan Assessment: Recurrent syncopal spell, likely due to hypovolemia, hypotension. No evidence of seizures. Generalized weakness and shortness of breath for 2 weeks. Possibly due to hypovolemia Electrolyte imbalance (hypomagenesmia) History of seizure (one seizure in but could not tell me about clinical episode, or what work-up revealed. Was on dilantin then was stopped in or ) History of TIA in remote past (language deficit) Chronic neck and lower back pain and uses cane for years Severe osteoarthritis. Macrocytosis Hypotension Acute Kidney insufficiency due to ATN, improving Atrial fibrillation status post pacemaker History of pulmonary embolism and has green filter History of bilateral DVT History of hypertension presenting with episodes of hypotension Cholecystitis Plan: * CT of the head showed no acute process. No intracranial hemorrhage, midline shift or mass effect. * Carotid Doppler showed no significant stenosis. Antegrade flow in both vertebral arteries. * EEG was performed today, which was normal awake and drowsy. No focal, lateralized or epileptiform activity was seen. * 2-D echo revealed pacemaker. Left ventricular size is normal. Moderate concentric LVH. EF is between 55-60%. Right ventricle is mildly enlarged. Moderate TR. * No indication for antiepileptic medication. Events likely syncopal from hypovolemia, hypotension. * Recommend avoiding any further episodes of hypotension and will defer the management to the primary team. * Vitamin B12 476, folate levels 8.0, TSH 1.48 and hemoglobin A1c 4.7 normal. Agree with starting B12 and folate replacement, as the levels are borderline. * Continue thiamine 100 mg daily * Continue eliquis 2.5mg 1 tab bid. Continue Lipitor 40mg qhs for secondary stroke prophylaxis. * Cardiology is consulted for the elevated troponins. * Patient undergoing evaluation for possible cholecystectomy. * Patient also has been seen by orthopedic surgery Dr. Sebastian Guillen for neck and back pain. Conservative management was recommended and to follow in his office. Patient cannot have MRI because of AICD. CT scan of the cervical spine showed moderate multilevel spondylotic changes. No fractures. Mild narrowing of the spinal canal from C3 to C7. There is some anterior bridging osteophyte formation in the mid and lower cervical spine. CT scan of the lumbar spine showed grade 1 anterior translation of L3 over L4 with severe narrowing of the intervertebral spaces disc degenerative changes and disc herniation at the same level. There is evidence of disc herniation at L4 5 and L5-S1. There is severe bilateral neural foraminal narrowing at L3 4 and mild to moderate narrowing at L4 5 bilaterally. Mild bony spinal canal stenosis noted at L4 level. May consider EMG and nerve conductions of bilateral lower extremities as an outpatient. * No other neurological workup indicated. We will sign off. Please reconsult if any concerns.
[2021-06-01 11:45] LABS: Glucose,Whole Blood 112 mg/dL (75-99)
--- NOTE | 2021-06-01 12:53 | P.PN ---
<Bailey Leal - Last Filed: 06/01/21 12:48> Subjective Progress Note Date: 06/01/21 CHIEF COMPLAINT: Fatigue and weakness HISTORY OF PRESENT ILLNESS: Surgical service following regards to concerns for possible cholecystitis. Patient also having issues with constipation. Patient was given citrate of mag yesterday. He has had 2 bowel movements. He reports that his abdominal bloating has improved. He denies any nausea or vomiting. He is tolerating a regular diet. He denies any right upper quadrant abdominal p ain. Afebrile. WBC 9.4 hemoglobin 12.2 platelets 178 creatinine 1.50 PHYSICAL EXAM: VITAL SIGNS: Reviewed. GENERAL: Well-developed in no acute distress. HEENT: No sclera icterus. Extraocular movements grossly intact. Moist buccal mucosa. Head is atraumatic, normocephalic. ABDOMEN: Soft. Nondistended. Nontender. NEUROLOGIC: Alert and oriented. Cranial nerves II through XII grossly intact. ASSESSMENT: 1. Constipation improving after the citrate of mag 2. Gallbladder wall thickening and debris. Gallbladder wall thickening could be on the basis of cardiogenic edema. Patient has no right upper quadrant pain on exam. PLAN: -Continue regular diet -Continue stool softeners -Continue supportive care -No surgical intervention planned at this time Physician Rand Butting Machine Operator note has been reviewed by physician. Signing provider agrees with the documented findings, assessment, and plan of care. Objective - Vital Signs Vital signs: Vital Signs Temp 98.2 F 06/01/21 08:45 Pulse 61 06/01/21 08:45 Resp 16 06/01/21 08:45 BP 154/104 06/01/21 08:45 Pulse Ox 99 06/01/21 08:45 Intake & Output 05/31/21 06/01/21 06/01/21 18:59 06:59 18:59 Intake Total 1020 580 240 Output Total 300 150 Balance 720 430 240 Weight 100 kg Intake: Intake, IV Titration 100 Amount Piperacillin-Tazobactam 3 100 .375 gm In Sodium Chloride 0.9% 100 ml @ 25 mls/hr IVPB Q8HR [facility] Rx# :[id number] Oral 1020 480 240 Output: Urine 300 150 Other: Voiding Method Toilet Toilet Toilet Urinal Urinal Urinal # Voids 3 # Bowel Movements 1 - Labs CBC & Chem 7: 06/01/21 07:23 06/01/21 07:23 Labs: Abnormal Lab Results - Last 24 Hours (Table) 05/31/21 05/31/21 06/01/21 Range/Units 16:51 19:55 03:20 RBC (4.30-5.90) m/uL Hgb (13.0-17.5) gm/dL Hct (39.0-53.0) % MCV (80.0-100.0) fL MCH (25.0-35.0) pg Neutrophils # (1.3-7.7) k/uL Lymphocytes # (1.0-4.8) k/uL Macrocytosis BUN (9-20) mg/dL Creatinine (0.66-1.25) mg/dL Glucose (74-99) mg/dL POC Glucose (mg/dL) 157 H 211 H 118 H (75-99) mg/dL 06/01/21 06/01/21 06/01/21 Range/Units 06:20 07:23 07:23 RBC 3.48 L (4.30-5.90) m/uL Hgb 12.2 L (13.0-17.5) gm/dL Hct 37.8 L (39.0-53.0) % MCV 108.7 H (80.0-100.0) fL MCH 35.1 H (25.0-35.0) pg Neutrophils # 8.7 H (1.3-7.7) k/uL Lymphocytes # 0.4 L (1.0-4.8) k/uL Macrocytosis Marked A BUN 32 H (9-20) mg/dL Creatinine 1.50 H (0.66-1.25) mg/dL Glucose 115 H (74-99) mg/dL POC Glucose (mg/dL) 123 H (75-99) mg/dL 06/01/21 Range/Units 11:43 RBC (4.30-5.90) m/uL Hgb (13.0-17.5) gm/dL Hct (39.0-53.0) % MCV (80.0-100.0) fL MCH (25.0-35.0) pg Neutrophils # (1.3-7.7) k/uL Lymphocytes # (1.0-4.8) k/uL Macrocytosis BUN (9-20) mg/dL Creatinine (0.66-1.25) mg/dL Glucose (74-99) mg/dL POC Glucose (mg/dL) 112 H (75-99) mg/dL <Justus Mccurdy - Last Filed: 06/01/21 14:23> Subjective As above. Patient denies abdominal pain. He has had multiple loose stools now. No bloating. White blood cell count normal. Abdomen remains nontender. Continue diet as tolerated. No plans for cholecystectomy at this time. Discussed symptoms that would be associated with cholecystitis in more detail. He will contact me if he develops any upper abdominal discomforts. Objective - Vital Signs Vital signs: Vital Signs Temp 98.2 F 06/01/21 08:45 Pulse 60 06/01/21 12:55 Resp 18 06/01/21 12:55 BP 157/93 06/01/21 12:55 Pulse Ox 99 06/01/21 12:55 Intake & Output 05/31/21 06/01/21 06/01/21 18:59 06:59 18:59 Intake Total 1020 580 360 Output Total 300 150 Balance 720 430 360 Weight 100 kg 100 kg Intake: Intake, IV Titration 100 Amount Piperacillin-Tazobactam 3 100 .375 gm In Sodium Chloride 0.9% 100 ml @ 25 mls/hr IVPB Q8HR [facility] Rx# :[id number] Oral 1020 480 360 Output: Urine 300 150 Other: Voiding Method Toilet Toilet Toilet Urinal Urinal Urinal # Voids 3 2 # Bowel Movements 1 - Labs CBC & Chem 7: 06/01/21 07:23 06/01/21 07:23 Labs: Abnormal Lab Results - Last 24 Hours (Table) 05/31/21 05/31/21 06/01/21 Range/Units 16:51 19:55 03:20 RBC (4.30-5.90) m/uL Hgb (13.0-17.5) gm/dL Hct (39.0-53.0) % MCV (80.0-100.0) fL MCH (25.0-35.0) pg Neutrophils # (1.3-7.7) k/uL Lymphocytes # (1.0-4.8) k/uL Macrocytosis BUN (9-20) mg/dL Creatinine (0.66-1.25) mg/dL Glucose (74-99) mg/dL POC Glucose (mg/dL) 157 H 211 H 118 H (75-99) mg/dL 06/01/21 06/01/21 06/01/21 Range/Units 06:20 07:23 07:23 RBC 3.48 L (4.30-5.90) m/uL Hgb 12.2 L (13.0-17.5) gm/dL Hct 37.8 L (39.0-53.0) % MCV 108.7 H (80.0-100.0) fL MCH 35.1 H (25.0-35.0) pg Neutrophils # 8.7 H (1.3-7.7) k/uL Lymphocytes # 0.4 L (1.0-4.8) k/uL Macrocytosis Marked A BUN 32 H (9-20) mg/dL Creatinine 1.50 H (0.66-1.25) mg/dL Glucose 115 H (74-99) mg/dL POC Glucose (mg/dL) 123 H (75-99) mg/dL 06/01/21 Range/Units 11:43 RBC (4.30-5.90) m/uL Hgb (13.0-17.5) gm/dL Hct (39.0-53.0) % MCV (80.0-100.0) fL MCH (25.0-35.0) pg Neutrophils # (1.3-7.7) k/uL Lymphocytes # (1.0-4.8) k/uL Macrocytosis BUN (9-20) mg/dL Creatinine (0.66-1.25) mg/dL Glucose (74-99) mg/dL POC Glucose (mg/dL) 112 H (75-99) mg/dL
[2021-06-01 13:59] VITALS: BMI 31.6
[2021-06-01 14:03] LABS: C-ANCA <1:20 Titer (<1:20)
--- NOTE | 2021-06-01 14:29 | P.PN ---
Subjective This is a pleasant 65-year-old gentleman who follows with Dr. Cardona. He has a history of chronic atrial fibrillation, anticoagulated on Eliquis, DVT and bilateral PEs in the past, IVC filter, permanent pacemaker implantation on May 19, 2019, hyperlipidemia. Cardiology is following for elevated troponin. He was recently admitted to [facility] with symptoms of chest discomfort at which time he underwent Lexiscan stress test which was negative according to the discharge summary and the patient. He was instructed to follow up as an outpati ent. He presented to [facility] emergency department with complaints of generalized weakness, poor oral intake due to decreased appetite, nausea, syncope. He also has complaints of chest pain and dyspnea on exertion. He was found to be significantly hypotensive on admission BP 70s/60s. Elevated troponins which came back to be 0.091, 0.083 and 0.069. Patient was found to be in acute kidney failure with a creatinine of 4.25. Of note during his admission at [facility] on May 02 his creatinine was 1.44. Chest x-ray on admission showed no active cardiopulmonary disease. EKG showed atrial fibrillation with ventricular paced rhythm. Renal ultrasound showed no evidence of hydron ephrosis. Echocardiogram revealed EF 55-60%, moderate tricuspid regurgitation, mild pulmonary hypertension with RVSP of 48 mmHg. Interrogation of patient's pacemaker on 05/30 revealed episodes of tachycardia less than a minute, most recently on May 2023, most likely atrial fibrillation with RVR. Device is set HR 175bpm. 05/31/2021: Patient seen and examined at bedside, no acute distress. Patient denies chest pain, shortness of breath, lightheadedness, dizziness. Patient underwent ultrasound of the gallbladder which revealed gallbladder wall thickening and consistent with acute on chronic cholecystitis. No dilated ducts no focal motor defect. Patient was seen by surgery and no acute surgical intervention planned at this time. Blood pressure 152/88, heart rate in the 60s, afebrile, maintaining oxygen saturations on room air. Laboratory data reviewed. Telemetry reviewed atrial fibrillation with ventricular paced rhythm HR 60s, no episodes of RVR. Patient currently maintained on Eliquis 2.5 mg twice a day atorvastatin 40 mg nightly, Cardizem 180 mg daily, metoprolol tartrate, 50mg BID GENERAL: In no acute distress. NECK: Supple without JVD or thyromegaly. LUNGS: Breath sounds clear to auscultation bilaterally. Respiration equal and unlabored. No wheezes, rales or rhonchi. HEART: Irregular rate and rhythm without murmurs, rubs or gallops. S1 and S2 heard. EXTREMITIES: Normal range of motion, no edema. No clubbing or cyanosis. Peripheral pulses intact. NEURO: Alert and oriented x 3. ASSESSMENT Elevated troponin, most likely secondary to JOHNNY, patient with recent negative stress test Acute Kidney Injury, slowly improving, unclear baseline serum creatinine Generalized Weakness History of hypertension History of hyperlipidemia Hypomagnesemia History of DVTS and bilateral PEs s/p IVC filter placement Sick sinus syndrome s/p Permanent pacemaker Chronic persistent atrial fibrillation on Eliqius Frequent falls at home PLAN Echocardiogram obtained and reviewed. Patient's device interrogation completed, unlikely patient's tachycardia causing him to be hypotensive BP 70s/50s on admission, most likely a response. From a cardiology perspective we will continue current regimen Eliquis 2.5 mg twice daily, atorvastatin 40 mg nightly, Cardizem 180mg daily, and metoprolol tartrate 50 mg twice a day From a cardiology perspective, patient is stable to be discharged. On discharge patient to follow-up with his primary metal building assembler's Dr. Cardona Nurse Practitioner note has been reviewed, I agree with a documented findings and plan of care. Patient was seen and examined. Objective - Vital Signs Vital signs: Vital Signs Temp 98.2 F 06/01/21 08:45 Pulse 60 06/01/21 12:55 Resp 18 06/01/21 12:55 BP 157/93 06/01/21 12:55 Pulse Ox 99 06/01/21 12:55 Intake & Output 05/31/21 06/01/21 06/01/21 18:59 06:59 18:59 Intake Total 1020 580 360 Output Total 300 150 Balance 720 430 360 Weight 100 kg 100 kg Intake: Intake, IV Titration 100 Amount Piperacillin-Tazobactam 3 100 .375 gm In Sodium Chloride 0.9% 100 ml @ 25 mls/hr IVPB Q8HR [facility] Rx# :[id number] Oral 1020 480 360 Output: Urine 300 150 Other: Voiding Method Toilet Toilet Toilet Urinal Urinal Urinal # Voids 3 2 # Bowel Movements 1 - Labs CBC & Chem 7: 06/01/21 07:23 06/01/21 07:23 Labs: Abnormal Lab Results - Last 24 Hours (Table) 05/31/21 05/31/21 06/01/21 Range/Units 16:51 19:55 03:20 RBC (4.30-5.90) m/uL Hgb (13.0-17.5) gm/dL Hct (39.0-53.0) % MCV (80.0-100.0) fL MCH (25.0-35.0) pg Neutrophils # (1.3-7.7) k/uL Lymphocytes # (1.0-4.8) k/uL Macrocytosis BUN (9-20) mg/dL Creatinine (0.66-1.25) mg/dL Glucose (74-99) mg/dL POC Glucose (mg/dL) 157 H 211 H 118 H (75-99) mg/dL 06/01/21 06/01/21 06/01/21 Range/Units 06:20 07:23 07:23 RBC 3.48 L (4.30-5.90) m/uL Hgb 12.2 L (13.0-17.5) gm/dL Hct 37.8 L (39.0-53.0) % MCV 108.7 H (80.0-100.0) fL MCH 35.1 H (25.0-35.0) pg Neutrophils # 8.7 H (1.3-7.7) k/uL Lymphocytes # 0.4 L (1.0-4.8) k/uL Macrocytosis Marked A BUN 32 H (9-20) mg/dL Creatinine 1.50 H (0.66-1.25) mg/dL Glucose 115 H (74-99) mg/dL POC Glucose (mg/dL) 123 H (75-99) mg/dL 06/01/21 Range/Units 11:43 RBC (4.30-5.90) m/uL Hgb (13.0-17.5) gm/dL Hct (39.0-53.0) % MCV (80.0-100.0) fL MCH (25.0-35.0) pg Neutrophils # (1.3-7.7) k/uL Lymphocytes # (1.0-4.8) k/uL Macrocytosis BUN (9-20) mg/dL Creatinine (0.66-1.25) mg/dL Glucose (74-99) mg/dL POC Glucose (mg/dL) 112 H (75-99) mg/dL
--- NOTE | 2021-06-01 15:28 | P.DS ---
Providers Date of admission: 05/27/21 23:17 Expected date of discharge: 06/01/21 Attending physician: Richard Mendoza MD Consults: 05/27/21 23:18 Consult Physician Routine Consulting Provider: Jessica Francisco Consult Reason/Comments: Acute kidney injury Do you want consulting provider notified?: Yes 05/27/21 23:19 Consult Physician Routine Consulting Provider: Arnie Hurt Consult Reason/Comments: Elevated troponin Do you want consulting provider notified?: Yes 05/28/21 10:03 Consult Physician Routine Consulting Provider: Zheng Linda Consult Reason/Comments: recurrent syncope and weakness Do you want consulting provider notified?: Yes 05/28/21 12:15 Consult Physician Routine Consulting Provider: Vic Pantoja Consult Reason/Comments: urinary obstruction Do you want consulting provider notified?: Yes 05/28/21 12:58 Consult Physician Routine Consulting Provider: Sebastian Guillen Consult Reason/Comments: neck and lower back pain. Lumbar spondylosis Do you want consulting provider notified?: Yes 05/30/21 19:37 Consult Physician Routine Consulting Provider: Justus Mccurdy Consult Reason/Comments: cholecystitis Do you want consulting provider notified?: Yes Primary care physician: Herve [facility] Hospital Course: Acute kidney injury secondary to dehydration, improving Weakness and inability to complete ADLs Patient was admitted with weakness and was found to have JOHNNY secondary to dehydration which improved with IVF. Nephrology consulted and determind patient likely had ATN from hypotension, though also wanted to rule out vasulitidies, which were negative. Urology followed for presumed obstructive component to JOHNNY. Neurology followed and recommended EEG, which was negative. Patient's Cr improved with IVF, and his symptoms mostly resolved with supportive care. Right and Left lower quadrant Abdominal pain and distention Acute on Chronic Cholecystitis Constipation -CT abdomen and pelvis without contrast completed for abdominal pain and constipation. This showed AoC cholecystitis, possible pyelonephritis, however urinalysis was negative for infection, and patient's abdominal pain resolved. Surgery consulted on patient and determined no intervention warranted. Patient was started on aggressive bowel regimen and after having 3 large BMs, his symp toms resolved completely. Hypertension -Monitor vital signs and Continue daily medication regimen with diltiazem and metoprolol. -dilt 180 CD daily -metoprolol changed to 50mg tartrate BID from 100mg succinate BID due to hypotension Hyperlipidemia CAD status post pacemaker placement Atrial fibrillation on Eliquis History of DVT - No home medication changes were made for these conditions I spent 45 minutes coordinating this complex discharge. Assessment: Gen: awake, alert HEENT: normocephalic, atraumatic, good hearing acuity, moist mucous membranes Resp: good air exchange, breathing comfortably with no accessory muscle use CVS: good distal perfusion x 4, GI: TTP in RUQ, RLQ, LLQ; soft, bloated : no SPT, no CVAT, talbot catheter not present MSK: no pitting edema, no clubbing Neuro: non-focal, moving all extremities Psych: cooperative, euthymic mood Patient Condition at Discharge: Good Plan - Discharge Summary Discharge Rx Participant: No New Discharge Prescriptions: New Docusate [Colace] 100 mg PO BID cap Metoprolol Tartrate [Lopressor] 50 mg PO BID tab methylPREDNISolone Dose Pack [Medrol Dose Pack] 4 mg PO DIRECTED #21 package Apixaban [Eliquis] 2.5 mg PO BID tablet Famotidine [Pepcid] 20 mg PO DAILY tab Acetaminophen Tab [Tylenol] 650 mg PO Q6HR PRN tab PRN Reason: Mild Pain Or Fever > 100.5 Continue Thiamine [Vitamin B-1] 100 mg PO DAILY oxyCODONE-APAP 10-325MG [Percocet 10-325 mg] 1 tab PO TID PRN PRN Reason: Pain Folic Acid 1 mg PO DAILY Escitalopram [Lexapro] 10 mg PO DAILY Diltiazem HCl [Diltiazem HCl 24Hr ER (XR)] 180 mg PO DAILY Cyanocobalamin (Vitamin B-12) [Vitamin B-12] 1,000 mcg PO DAILY traZODone HCL [Desyrel] 50 - 100 mg PO HS PRN PRN Reason: SLEEP Tamsulosin HCl [Flomax] 0.8 mg PO DAILY Rosuvastatin Calcium [Crestor] 5 mg PO HS allopurinoL [Zyloprim] 100 mg PO BID Discontinued Apixaban [Eliquis] 5 mg PO BID Metoprolol Succinate (ER) [Toprol Xl] 100 mg PO BID Colchicine [Mitigare] 1.2 mg PO DAILY Discharge Medication List Cyanocobalamin (Vitamin B-12) [Vitamin B-12] 1,000 mcg PO DAILY 05/28/21 [History] Diltiazem HCl [Diltiazem HCl 24Hr ER (XR)] 180 mg PO DAILY 05/28/21 [History] Escitalopram [Lexapro] 10 mg PO DAILY 05/28/21 [History] Folic Acid 1 mg PO DAILY 05/28/21 [History] Rosuvastatin Calcium [Crestor] 5 mg PO HS 05/28/21 [History] Tamsulosin HCl [Flomax] 0.8 mg PO DAILY 05/28/21 [History] Thiamine [Vitamin B-1] 100 mg PO DAILY 05/28/21 [History] allopurinoL [Zyloprim] 100 mg PO BID 05/28/21 [History] oxyCODONE-APAP 10-325MG [Percocet 10-325 mg] 1 tab PO TID PRN 05/28/21 [History] traZODone HCL [Desyrel] 50 - 100 mg PO HS PRN 05/28/21 [History] Acetaminophen Tab [Tylenol] 650 mg PO Q6HR PRN tab 06/01/21 [Rx] Apixaban [Eliquis] 2.5 mg PO BID tablet 06/01/21 [Rx] Docusate [Colace] 100 mg PO BID cap 06/01/21 [Rx] Famotidine [Pepcid] 20 mg PO DAILY tab 06/01/21 [Rx] Metoprolol Tartrate [Lopressor] 50 mg PO BID tab 06/01/21 [Rx] methylPREDNISolone Dose Pack [Medrol Dose Pack] 4 mg PO DIRECTED #21 package 06/01/21 [Rx] Follow up Appointment(s)/Referral(s): Justus Mccurdy MD [Medical Doctor] - As Needed Cassandra Cardona MD [REFERRING] - 2 Weeks Herve Argueta MD [Primary Care Provider] - 1-2 days Sebastian Guillen DO [Doctor of Osteopathic Medicine] - As Needed Discharge Disposition: TRANSFER TO SNF/ECF
[2021-06-01 16:31] LABS: Glucose,Whole Blood 121 mg/dL (75-99)
[2021-06-01] MEDS ORDERED: FUROSEMIDE 10 MG/ML 4 ML VIAL IV STA (16:39)
--- NOTE | 2021-06-01 17:09 | PN ---
PROGRESS NOTE Patient is seen for followup for acute kidney injury. The patient's renal function continues to improve. Serum creatinine down to 1.5 mg/dL from 4.25 on initial admission. He continues to void fairly well. PHYSICAL EXAMINATION: On examination today, blood pressure 157/93, heart rate 60 per minute. He is afebrile. Examination of the heart S1, S2. Examination of the lungs, bilateral breath sounds are heard. Abdomen is soft, nontender. Examination of lower extremities shows no significant edema. DIE TESTER exam grossly intact. LAB: Show sodium 140, potassium 4.9, chloride 105, BUN 32, creatinine 1.5 mg/dL. ASSESSMENT: 1. Acute kidney injury mostly acute tubular necrosis. No significant obstruction. Renal function continues to improve. No nephrotoxic agents on board. Ultrasound was unremarkable. The patient has mild volume overload. I will give him a dose of IV Lasix prior to discharge. 2. Lower extremity edema and fluid retention secondary to steroids. 3. Metabolic acidosis, currently improved. 4. Hypertension. Blood pressure is still on the higher side but improved. Continue with the higher dose of Lopressor. 5. Rule out chronic kidney disease. PLAN: Lasix IV x1 prior to discharge. Repeat labs as outpatient. If renal function not normalized, patient will need follow up with Nephrology. MMODL / IJN: [id number] /
[2021-06-01 19:53] LABS: Glucose,Whole Blood 139 mg/dL (75-99)
[2021-06-01] MEDS: traZODone HCL 50 MG TAB PO PRN (20:58)
[2021-06-01] MEDS: ATORVASTATIN 40 MG TAB PO SCH (20:58)
[2021-06-02] MEDS: oxyCODONE-APAP 5-325MG 1 EACH TAB PO PRN ×2 (03:00→08:57)
[2021-06-02 06:12] VITALS: TEMP 97.8
[2021-06-02] MEDS: INSULIN ASPART (NovoLOG) 100 UNIT/ML VIAL SQ SCH ×2 (06:12→12:20)
[2021-06-02 06:16] LABS: Glucose,Whole Blood 105 mg/dL (75-99)
[2021-06-02 07:39] LABS: Basophils # (A) 0.1 k/uL (0-0.2); Basophils % (A) 1 %; Eosinophils % (A) 0 %; HCT 39.6 % (39.0-53.0); HGB 13.1 gm/dL (13.0-17.5); Lymphocytes # (A) 0.5 k/uL (1.0-4.8); Lymphocytes % (A) 4 %; MCH 35.7 pg (25.0-35.0); MCV 108.1 fL (80.0-100.0); Macrocytosis Moderate; Mean Platelet Volume 8.4; Monocytes # (A) 0.6 k/uL (0-1.0); Monocytes % (A) 5 %; Neutrophils % (A) 89 %; Platelet Count 229 k/uL (150-450); RBC 3.66 m/uL (4.30-5.90); RDW 14.3 % (11.5-15.5); WBC 11.2 k/uL (3.8-10.6)
[2021-06-02 07:56] LABS: Calcium 9.8 mg/dL (8.4-10.2); Magnesium 1.6 mg/dL (1.6-2.3); Potassium 4.6 mmol/L (3.5-5.1)
[2021-06-02] MEDS: METOPROLOL TARTRATE 50 MG TAB PO SCH (08:56)
[2021-06-02] MEDS: allopurinoL 100 MG TAB PO SCH (08:57)
[2021-06-02] MEDS: CYANOCOBALAMIN 500 MCG TAB PO SCH (08:57)
[2021-06-02] MEDS: TAMSULOSIN 0.4 MG CAP.ER.24H PO SCH (08:57)
[2021-06-02] MEDS: APIXABAN 2.5 MG TABLET PO SCH (08:57)
[2021-06-02] MEDS: THIAMINE 100 MG TAB PO SCH (08:57)
[2021-06-02] MEDS: FOLIC ACID 1 MG TAB PO SCH (08:57)
[2021-06-02] MEDS: ESCITALOPRAM 10 MG TAB PO SCH (08:57)
[2021-06-02] MEDS: DOCUSATE 100 MG CAP PO SCH (08:57)
[2021-06-02] MEDS: FAMOTIDINE 20 MG TAB PO SCH (08:58)
[2021-06-02] MEDS: DILTIAZEM CD 180 MG CAP.ER.24H PO SCH (08:58)
--- NOTE | 2021-06-02 09:45 | P.PN ---
Subjective Progress Note Date: 06/02/21 Principal diagnosis: Chronic cholecystitis Patient continues to do well. He has had more bowel movements. Denies bloating. No abdominal pain. Tolerating diet. Objective - Vital Signs Vital signs: Vital Signs Temp 97.8 F 06/02/21 04:08 Pulse 69 06/02/21 08:45 Resp 18 06/02/21 08:45 BP 167/100 06/02/21 08:45 Pulse Ox 98 06/02/21 08:45 Intake & Output 06/01/21 06/02/21 06/02/21 18:59 06:59 18:59 Intake Total 360 240 Balance 360 240 Weight 100 kg 97.9 kg Intake: Oral 360 240 Other: Voiding Method Toilet Toilet Urinal Urinal # Voids 2 1 - Exam Abdomen: Soft, nondistended, nontender - Labs CBC & Chem 7: 06/02/21 06:56 06/02/21 06:56 Labs: Abnormal Lab Results - Last 24 Hours (Table) 06/01/21 06/01/21 06/01/21 Range/Units 11:43 16:29 19:51 WBC (3.8-10.6) k/uL RBC (4.30-5.90) m/uL MCV (80.0-100.0) fL MCH (25.0-35.0) pg Neutrophils # (1.3-7.7) k/uL Lymphocytes # (1.0-4.8) k/uL Chloride (98-107) mmol/L BUN (9-20) mg/dL Creatinine (0.66-1.25) mg/dL Glucose (74-99) mg/dL POC Glucose (mg/dL) 112 H 121 H 139 H (75-99) mg/dL 06/02/21 06/02/21 06/02/21 Range/Units 06:12 06:56 06:56 WBC 11.2 H (3.8-10.6) k/uL RBC 3.66 L (4.30-5.90) m/uL MCV 108.1 H (80.0-100.0) fL MCH 35.7 H (25.0-35.0) pg Neutrophils # 10.0 H (1.3-7.7) k/uL Lymphocytes # 0.5 L (1.0-4.8) k/uL Chloride 96 L (98-107) mmol/L BUN 42 H (9-20) mg/dL Creatinine 1.58 H (0.66-1.25) mg/dL Glucose 104 H (74-99) mg/dL POC Glucose (mg/dL) 105 H (75-99) mg/dL Assessment and Plan (1) Chronic cholecystitis Narrative/Plan: Patient continues to do well. Continue diet as tolerated. Gallbladder wall swelling likely on the basis of cardiogenic edema. Patient remains a symptomatically. No plans for surgical intervention at this time unless symp toms develop. Stable for discharge to rehab from our point of view. We'll sign off. Please call if needed. Current Visit: Yes Status: Acute Code(s): K81.1 - CHRONIC CHOLECYSTITIS SNOMED Code(s): 54127272
[2021-06-02] MEDS ORDERED: CYCLOBENZAPRINE 5 MG TAB PO PRN (09:50)
[2021-06-02] MEDS ORDERED: oxyCODONE-APAP 10-325MG 1 EACH TAB PO PRN (09:52)
[2021-06-02 12:18] VITALS: BP 156/93; PULSE 65; RESP 16
[2021-06-02 12:19] LABS: Glucose,Whole Blood 101 mg/dL (75-99)
--- NOTE | 2021-06-02 16:42 | P.DS ---
Providers Date of admission: 05/27/21 23:17 Expected date of discharge: 06/02/21 Attending physician: Richard Mendoza MD Consults: 05/27/21 23:18 Consult Physician Routine Consulting Provider: Jessica Francisco Consult Reason/Comments: Acute kidney injury Do you want consulting provider notified?: Yes 05/27/21 23:19 Consult Physician Routine Consulting Provider: Arnie Hurt Consult Reason/Comments: Elevated troponin Do you want consulting provider notified?: Yes 05/28/21 10:03 Consult Physician Routine Consulting Provider: Zheng Linda Consult Reason/Comments: recurrent syncope and weakness Do you want consulting provider notified?: Yes 05/28/21 12:15 Consult Physician Routine Consulting Provider: Vic Pantoja Consult Reason/Comments: urinary obstruction Do you want consulting provider notified?: Yes 05/28/21 12:58 Consult Physician Routine Consulting Provider: Sebastian Guillen Consult Reason/Comments: neck and lower back pain. Lumbar spondylosis Do you want consulting provider notified?: Yes 05/30/21 19:37 Consult Physician Routine Consulting Provider: Justus Mccurdy Consult Reason/Comments: cholecystitis Do you want consulting provider notified?: Yes Primary care physician: Herve [facility] Hospital Course: Acute kidney injury secondary to dehydration, improving Weakness and inability to complete ADLs Patient was admitted with weakness and was found to have JOHNNY secondary to dehydration which improved with IVF. Nephrology consulted and determind patient likely had ATN from hypotension, though also wanted to rule out vasulitidies, which were negative. Urology followed for presumed obstructive component to JOHNNY. Neurology followed and recommended EEG, which was negative. Patient's Cr improved with IVF, and his symptoms mostly resolved with supportive care. Right and Left lower quadrant Abdominal pain and distention Acute on Chronic Cholecystitis Constipation -CT abdomen and pelvis without contrast completed for abdominal pain and constipation. This showed AoC cholecystitis, possible pyelonephritis, however urinalysis was negative for infection, and patient's abdominal pain resolved. Surgery consulted on patient and determined no intervention warranted. Patient was started on aggressive bowel regimen and after having 3 large BMs, his symp toms resolved completely. Hypertension -Monitor vital signs and Continue daily medication regimen with diltiazem and metoprolol. -dilt 180 CD daily -metoprolol changed to 50mg tartrate BID from 100mg succinate BID due to hypotension Hyperlipidemia CAD status post pacemaker placement Atrial fibrillation on Eliquis History of DVT - No home medication changes were made for these conditions Note: patient spent additional day in hospital waiting for insurance approval for rehab, but was declined due to having no nursing need requiring that level of care. He was discharged home and offered home care services, but refused. I spent 45 minutes coordinating this complex discharge. Assessment: Gen: awake, alert HEENT: normocephalic, atraumatic, good hearing acuity, moist mucous membranes Resp: good air exchange, breathing comfortably with no accessory muscle use CVS: good distal perfusion x 4, GI: TTP in RUQ, RLQ, LLQ; soft, bloated : no SPT, no CVAT, talbot catheter not present MSK: no pitting edema, no clubbing Neuro: non-focal, moving all extremities Psych: cooperative, euthymic mood Patient Condition at Discharge: Good Plan - Discharge Summary Discharge Rx Participant: No New Discharge Prescriptions: New Docusate [Colace] 100 mg PO BID cap Metoprolol Tartrate [Lopressor] 50 mg PO BID tab methylPREDNISolone Dose Pack [Medrol Dose Pack] 4 mg PO DIRECTED #21 package Apixaban [Eliquis] 2.5 mg PO BID tablet Famotidine [Pepcid] 20 mg PO DAILY tab Acetaminophen Tab [Tylenol] 650 mg PO Q6HR PRN tab PRN Reason: Mild Pain Or Fever > 100.5 Cyclobenzaprine [Flexeril] 5 mg PO TID PRN #30 tab PRN Reason: Muscle Spasm Continue Thiamine [Vitamin B-1] 100 mg PO DAILY oxyCODONE-APAP 10-325MG [Percocet 10-325 mg] 1 tab PO TID PRN PRN Reason: Pain Folic Acid 1 mg PO DAILY Escitalopram [Lexapro] 10 mg PO DAILY Diltiazem HCl [Diltiazem HCl 24Hr ER (XR)] 180 mg PO DAILY Cyanocobalamin (Vitamin B-12) [Vitamin B-12] 1,000 mcg PO DAILY traZODone HCL [Desyrel] 50 - 100 mg PO HS PRN PRN Reason: SLEEP Tamsulosin HCl [Flomax] 0.8 mg PO DAILY Rosuvastatin Calcium [Crestor] 5 mg PO HS allopurinoL [Zyloprim] 100 mg PO BID Discontinued Apixaban [Eliquis] 5 mg PO BID Metoprolol Succinate (ER) [Toprol Xl] 100 mg PO BID Colchicine [Mitigare] 1.2 mg PO DAILY Discharge Medication List Cyanocobalamin (Vitamin B-12) [Vitamin B-12] 1,000 mcg PO DAILY 05/28/21 [History] Diltiazem HCl [Diltiazem HCl 24Hr ER (XR)] 180 mg PO DAILY 05/28/21 [History] Escitalopram [Lexapro] 10 mg PO DAILY 05/28/21 [History] Folic Acid 1 mg PO DAILY 05/28/21 [History] Rosuvastatin Calcium [Crestor] 5 mg PO HS 05/28/21 [History] Tamsulosin HCl [Flomax] 0.8 mg PO DAILY 05/28/21 [History] Thiamine [Vitamin B-1] 100 mg PO DAILY 05/28/21 [History] allopurinoL [Zyloprim] 100 mg PO BID 05/28/21 [History] oxyCODONE-APAP 10-325MG [Percocet 10-325 mg] 1 tab PO TID PRN 05/28/21 [History] traZODone HCL [Desyrel] 50 - 100 mg PO HS PRN 05/28/21 [History] Acetaminophen Tab [Tylenol] 650 mg PO Q6HR PRN tab 06/01/21 [Rx] Apixaban [Eliquis] 2.5 mg PO BID tablet 06/01/21 [Rx] Docusate [Colace] 100 mg PO BID cap 06/01/21 [Rx] Famotidine [Pepcid] 20 mg PO DAILY tab 06/01/21 [Rx] Metoprolol Tartrate [Lopressor] 50 mg PO BID tab 06/01/21 [Rx] methylPREDNISolone Dose Pack [Medrol Dose Pack] 4 mg PO DIRECTED #21 package 06/01/21 [Rx] Cyclobenzaprine [Flexeril] 5 mg PO TID PRN #30 tab 06/02/21 [Rx] Follow up Appointment(s)/Referral(s): Justus Mccurdy MD [Medical Doctor] - As Needed (Patient will call to make appt ) Cassandra Cardona MD [REFERRING] - 2 Weeks (Patient will call to make appt) Herve Argueta MD [Primary Care Provider] - 1-2 days (patient will call to make appt ) Sebastian Guillen DO [Doctor of Osteopathic Medicine] - As Needed (Patient will call to make appt) Patient Instructions/Handouts: Dehydration (DC), Acute Kidney Injury (DC), Weakness (DC) Discharge Disposition: HOME SELF-CARE
--- NOTE | 2021-06-02 20:40 | PN ---
PROGRESS NOTE Patient is seen for followup for acute kidney injury. His renal function has continued to improve during the hospitalization with creatinine now down to 1.5 from 4.3 at peak. EXAM: Examination today, blood pressure was 167/100, heart rate 69 per minute. Patient is afebrile. Examination of the heart S1, S2. Examination of the lungs, bilateral breath sounds are heard. Abdomen is soft, nontender. Examination of lower extremities shows trace edema. STAFFING RECRUITER exam grossly intact. LAB: Show sodium of 138, potassium 4.6, BUN 42, creatinine 1.58, hemoglobin 13.1 g/dL. ASSESSMENT: 1. Acute kidney injury, acute tubular necrosis, currently improving. 2. Lower extremity edema and fluid retention secondary to steroids. 3. Metabolic acidosis. 4. Hypertension, blood pressure remains on the higher side. 5. Possible underlying chronic kidney disease, NKF stage 3. PLAN: The patient is advised fluid restriction and salt restriction post discharge. He will need followup as outpatient with Nephrology in 1-2 weeks. MMODL / IJN: [id number] /
== END 2021-06-02 14:46 | disposition home or self-care (01) | DRG 683 ==
LOC: EC 21:05 → 3SCARD 23:17
PROVIDERS: ADMIT Internal Medicine; ATTEND Internal Medicine
DX: N17.0 Acute kidney failure with tubular necrosis (principal); E87.1 Hypo-osmolality and hyponatremia; E87.2 Acidosis; I48.19 Other persistent atrial fibrillation; K81.2 Acute cholecystitis with chronic cholecystitis; N13.8 Other obstructive and reflux uropathy; J98.11 Atelectasis; E87.3 Alkalosis; M10.9 Gout, unspecified; R62.7 Adult failure to thrive; I12.9 Hypertensive chronic kidney disease with stage 1 through stage 4 chronic kidney disease, or unspecified chronic kidney disease; I25.10 Atherosclerotic heart disease of native coronary artery without angina pectoris; D69.6 Thrombocytopenia, unspecified; D75.89 Other specified diseases of blood and blood-forming organs; E78.5 Hyperlipidemia, unspecified; E83.42 Hypomagnesemia; E86.0 Dehydration; E86.1 Hypovolemia; E87.70 Fluid overload, unspecified; F17.210 Nicotine dependence, cigarettes, uncomplicated; F40.240 Claustrophobia; G62.9 Polyneuropathy, unspecified; M43.16 Spondylolisthesis, lumbar region; G89.29 Other chronic pain; R55 Syncope and collapse; R33.8 Other retention of urine; R31.9 Hematuria, unspecified; I95.9 Hypotension, unspecified; I27.20 Pulmonary hypertension, unspecified; K57.90 Diverticulosis of intestine, part unspecified, without perforation or abscess without bleeding; K59.00 Constipation, unspecified; M17.0 Bilateral primary osteoarthritis of knee; M47.26 Other spondylosis with radiculopathy, lumbar region; I07.1 Rheumatic tricuspid insufficiency; M48.061 Spinal stenosis, lumbar region without neurogenic claudication; G40.409 Other generalized epilepsy and epileptic syndromes, not intractable, without status epilepticus; R60.0 Localized edema; R77.8 Other specified abnormalities of plasma proteins; M47.812 Spondylosis without myelopathy or radiculopathy, cervical region; N18.9 Chronic kidney disease, unspecified; N40.1 Benign prostatic hyperplasia with lower urinary tract symptoms; M19.90 Unspecified osteoarthritis, unspecified site; R63.0 Anorexia; R29.6 Repeated falls; T38.0X5A Adverse effect of glucocorticoids and synthetic analogues, initial encounter; W19.XXXA Unspecified fall, initial encounter; Z79.01 Long term (current) use of anticoagulants; Z79.899 Other long term (current) drug therapy; Z86.711 Personal history of pulmonary embolism; Z86.718 Personal history of other venous thrombosis and embolism; Z86.73 Personal history of transient ischemic attack (TIA), and cerebral infarction without residual deficits; Z95.0 Presence of cardiac pacemaker; Z95.828 Presence of other vascular implants and grafts; Z68.29 Body mass index [BMI] 29.0-29.9, adult; Z82.49 Family history of ischemic heart disease and other diseases of the circulatory system
CPT/HCPCS: 36415; 70450; 71046; 71250; 72125; 72131; 74176; 76705; 76770; 80048; 80053; 81001; 82570; 82607; 82652; 82746; 83036; 83605; 83735; 84100; 84156; 84443; 84484; 84550; 85025; 85027; 85610; 85730; 86038; 86147; 86160; 86255; 93005; 93306; 93880; 95816; 96360; 96361; 99285

== ENCOUNTER 2022-11-23 09:46 | Emergency (ER) | payer MEDICARE, OTHER ==
[2022-11-23 09:55] VITALS: RESP 18; TEMP 97.9
[2022-11-23] MEDS ORDERED: PANTOPRAZOLE 40 MG/10 ML VIAL IVP STA (10:06)
--- NOTE | 2022-11-23 10:10 | ED ---
General Adult HPI - General Chief complaint: Recheck/Abnormal Lab/Rx Stated complaint: low hemoglobin Time Seen by Provider: 11/23/22 09:55 Source: patient, EMS, RN notes reviewed, old records reviewed (Review transfer notes) Mode of arrival: EMS Limitations: no limitations - History of Present Illness Initial comments: Patient is a pleasant 66-year-old male presenting to the emergency department from nursing facility with concern for anemia. Patient had reported hemoglobin of 5.8. Patient does have ostomy bag. No reported bleeding. Patient does complain of discomfort from the sacral area where he does have a known wound. Patient does have fatigue. Patient may have minimal dyspnea. Unclear if history of similar symptoms previously. - Related Data Home Medications Medication Instructions Recorded Confirmed Cyanocobalamin (Vitamin B-12) 1,000 mcg PO DAILY 05/28/21 05/28/21 [Vitamin B-12] Escitalopram [Lexapro] 10 mg PO DAILY 05/28/21 05/28/21 Folic Acid 1 mg PO DAILY 05/28/21 05/28/21 Rosuvastatin Calcium [Crestor] 5 mg PO HS 05/28/21 05/28/21 Tamsulosin HCl [Flomax] 0.8 mg PO DAILY 05/28/21 05/28/21 Thiamine [Vitamin B-1] 100 mg PO DAILY 05/28/21 05/28/21 allopurinoL [Zyloprim] 100 mg PO BID 05/28/21 05/28/21 dilTIAZem HCL [Diltiazem HCl 24Hr 180 mg PO DAILY 05/28/21 05/28/21 ER (XR)] oxyCODONE-APAP 10-325MG [Percocet 1 tab PO TID PRN 05/28/21 05/28/21 10-325 mg] traZODone HCL [Desyrel] 50 - 100 mg PO HS PRN 05/28/21 05/28/21 Previous Rx's Medication Instructions Recorded Acetaminophen Tab [Tylenol] 650 mg PO Q6HR PRN tab 06/01/21 Apixaban [Eliquis] 2.5 mg PO BID tablet 06/01/21 Docusate [Colace] 100 mg PO BID cap 06/01/21 Famotidine [Pepcid] 20 mg PO DAILY tab 06/01/21 Metoprolol Tartrate [Lopressor] 50 mg PO BID tab 06/01/21 methylPREDNISolone Dose Pack 4 mg PO DIRECTED #21 package 06/01/21 [Medrol Dose Pack] Cyclobenzaprine [Flexeril] 5 mg PO TID PRN #30 tab 06/02/21 Allergies Allergy/AdvReac Type Severity Reaction Status Date / Time No Known Allergies Allergy Verified 11/23/22 09:55 Review of Systems ROS Statement: Those systems with pertinent positive or pertinent negative responses have been documented in the HPI. ROS Other: All systems not noted in ROS Statement are negative. Constitutional: Denies: fever Eyes: Denies: eye pain ENT: Denies: ear pain Respiratory: Denies: cough Cardiovascular: Reports: as per HPI. Denies: chest pain Endocrine: Reports: fatigue Gastrointestinal: Denies: abdominal pain Genitourinary: Denies: dysuria Musculoskeletal: Reports: as per HPI Skin: Reports: as per HPI Neurological: Denies: headache Past Medical History Past Medical History: Atrial Fibrillation, COPD, Deep Vein Thrombosis (DVT), Hypertension, Osteoarthritis (OA), Pulmonary Embolus (PE), Renal Disease Additional Past Medical History / Comment(s): gout, colostomy. History of Any Multi-Drug Resistant Organisms: None Reported Past Surgical History: Pacemaker Type of Cardiac Device: Permanent Pacemaker Device Placement Date:: 2018 Past Psychological History: Anxiety Smoking Status: Current every day smoker Past Alcohol Use History: Abuse Past Drug Use History: None Reported - Past Family History Father Family Medical History: Hypertension General Exam Limitations: no limitations General appearance: alert, in no apparent distress Head exam: Present: atraumatic, normocephalic Eye exam: Present: normal appearance Respiratory exam: Present: normal lung sounds bilaterally Cardiovascular Exam: Present: regular rate, irregular rhythm GI/Abdominal exam: Present: soft, other (Ostomy bag with stool, normal color). Absent: tenderness Extremities exam: Present: other (Leg atrophy) Neurological exam: Present: alert Psychiatric exam: Present: normal affect, normal mood Skin exam: Present: other (Sacral ulcer approximately 3 x 12 cm, stage III with foul odor) Course Vital Signs 11/23/22 11/23/22 09:49 11:28 Temperature 97.9 F Pulse Rate 64 62 Respiratory 18 18 Rate Blood Pressure 103/81 111/75 O2 Sat by Pulse 98 Oximetry EKG Findings - EKG Results: EKG: interpreted by ERMD (Pacer spikes present. Left axis. Wide QRS complex. Unspecific ST-T.) EKG shows: atrial fibrillation Medical Decision Making - Medical Decision Making Was pt. sent in by a medical professional or institution (MARCELINA Perez, WASTE TRANSPORTATION TECHNICIAN, urgent care, hospital, or correction...) When possible be specific @ -Patient sent from nursing care facility Did you speak to anyone other than the patient for history (EMS, parent, family, police, friend...)? What history was obtained from this source @ -No Did you review nursing and triage notes (agree or disagree)? Why? @ -I reviewed and agree with nursing and triage notes Were old charts reviewed (outside hosp., previous admission, EMS record, old EKG, old radiological studies, urgent care reports/EKG's, correction records)? Report findings @ -Review transfer notes. Differential Diagnosis (chest pain, altered mental status, abdominal pain women, abdominal pain men, vaginal bleeding, weakness, fever, dyspnea, syncope, headache, dizziness, GI bleed, back pain, seizure, CVA, palpatations, mental health)? @ -Differential GI Bleed: Esophageal varices, aortoenteric fistula, Ninfa-Celestin, gastritis, peptic ulcer disease, diverticulosis, inflammatory bowel disease, hemorrhoids, fissure, colitis, malignancy, Meckels diverticulum, this is not meant to be an all- inclusive list. EKG interpreted by me (3pts min.). @ -As above X-rays interpreted by me (1pt min.). @ -1 view chest x-ray shows no acute process. Pacemaker present. One view pelvis x-ray shows no osseous abnormality. CT interpreted by me (1pt min.). @ -None done U/S interpreted by me (1pt. min.). @ -None done What testing was considered but not performed or refused? (CT, X-rays, U/S, labs)? Why? @ -None What meds were considered but not given or refused? Why? @ -Protonix considered however hemoglobin is stable and occult negative Did you discuss the management of the patient with other professionals (professionals i.e. MARCELINA Perez, WASTE TRANSPORTATION TECHNICIAN, lab, RT, psych nurse, social staff worker, chemical dependency professional, teacher, morale officer, disease case manager rn)? Give summary @ -Case was discussed with Dr. Timmons regarding patient's sacral ulcer. He feels if no obvious sign of infection other than odor patient can be managed as an outpatient and this will be instructed with discharge instructions. Was smoking cessation discussed for >3mins.? @ -No Was critical care preformed (if so, how long)? @ -No Were there social determinants of health that impacted care today? How? (Homelessness, low income, unemployed, alcoholism, drug addiction, transportation, low edu. Level, literacy, decrease access to med. care, care home, rehab)? @ -Patient from nursing facility Was there de-escalation of care discussed even if they declined (Discuss DNR or withdrawal of care, Hospice)? DNR status @ -No What co-morbidities impacted this encounter? (DM, HTN, Smoking, COPD, CAD, Cancer, CVA, ARF, Chemo, Hep., AIDS, mental health diagnosis, sleep apnea, morbid obesity)? @ -Patient is not ambulatory Was patient admitted / discharged? Hospital course, mention meds given and route, prescriptions, significant lab abnormalities, going to OR and other pertinent info. @ -Patient reevaluated and resting comfortably in bed. Patient is updated on results and plan. Patient will be discharged and will need follow-up for sacral ulcer Undiagnosed new problem with uncertain prognosis? @ -No Drug Therapy requiring intensive monitoring for toxicity (Heparin, Nitro, Insulin, Cardizem)? @ -No Were any procedures done? @ -No Diagnosis/symptom? @ -Sacral ulcer Acute, or Chronic, or Acute on Chronic? @ -Chronic Uncomplicated (without systemic symptoms) or Complicated (systemic symptoms)? @ -Uncomplicated Side effects of treatment? @ -No Exacerbation, Progression, or Severe Exacerbation? @ -No Poses a threat to life or bodily function? How? (Chest pain, [place], [place], pneumonia, PE, COPD, DKA, ARF, appy, cholecystitis, CVA, Diverticulitis, Homicidal, Suicidal, threat to staff... and all critical care pts) @ -No threat at this time - Lab Data Result diagrams: 11/23/22 10:14 11/23/22 10:14 Lab Results 11/23/22 11/23/22 11/23/22 Range/Units 10:14 10:14 10:14 WBC 11.0 H (3.8-10.6) k/uL RBC 4.19 L (4.30-5.90) m/uL Hgb 11.2 L (13.0-17.5) gm/dL Hct 35.2 L (39.0-53.0) % MCV 84.0 (80.0-100.0) fL MCH 26.7 (25.0-35.0) pg MCHC 31.8 (31.0-37.0) g/dL RDW 16.9 H (11.5-15.5) % Plt Count 209 (150-450) k/uL MPV 8.5 Neutrophils % 81 % Lymphocytes % 10 % Monocytes % 5 % Eosinophils % 3 % Basophils % 0 % Neutrophils # 8.9 H (1.3-7.7) k/uL Lymphocytes # 1.1 (1.0-4.8) k/uL Monocytes # 0.5 (0-1.0) k/uL Eosinophils # 0.3 (0-0.7) k/uL Basophils # 0.0 (0-0.2) k/uL Anisocytosis Slight PT 10.4 (9.0-12.0) sec INR 1.0 (<1.2) APTT 23.0 (22.0-30.0) sec Sodium (137-145) mmol/L Potassium (3.5-5.1) mmol/L Chloride (98-107) mmol/L Carbon Dioxide (22-30) mmol/L Anion Gap mmol/L BUN (9-20) mg/dL Creatinine (0.66-1.25) mg/dL Est GFR (CKD-EPI)AfAm (>60 ml/min/1.73 sqM) Est GFR (CKD-EPI)NonAf (>60 ml/min/1.73 sqM) Glucose (74-99) mg/dL Calcium (8.4-10.2) mg/dL Magnesium (1.6-2.3) mg/dL Total Bilirubin (0.2-1.3) mg/dL AST (17-59) U/L ALT (4-49) U/L Alkaline Phosphatase (38-126) U/L Troponin I (0.000-0.034) ng/mL Total Protein (6.3-8.2) g/dL Albumin (3.5-5.0) g/dL Stool Occult Blood Negative (Negative) Blood Type Recheck Bld Type Recheck Status Spec Expiration Date 11/23/22 11/23/22 11/23/22 Range/Units 10:14 10:14 10:14 WBC (3.8-10.6) k/uL RBC (4.30-5.90) m/uL Hgb (13.0-17.5) gm/dL Hct (39.0-53.0) % MCV (80.0-100.0) fL MCH (25.0-35.0) pg MCHC (31.0-37.0) g/dL RDW (11.5-15.5) % Plt Count (150-450) k/uL MPV Neutrophils % % Lymphocytes % % Monocytes % % Eosinophils % % Basophils % % Neutrophils # (1.3-7.7) k/uL Lymphocytes # (1.0-4.8) k/uL Monocytes # (0-1.0) k/uL Eosinophils # (0-0.7) k/uL Basophils # (0-0.2) k/uL Anisocytosis PT (9.0-12.0) sec INR (<1.2) APTT (22.0-30.0) sec Sodium 141 (137-145) mmol/L Potassium 4.1 (3.5-5.1) mmol/L Chloride 103 (98-107) mmol/L Carbon Dioxide 30 (22-30) mmol/L Anion Gap 8 mmol/L BUN 48 H (9-20) mg/dL Creatinine 2.59 H (0.66-1.25) mg/dL Est GFR (CKD-EPI)AfAm 29 (>60 ml/min/1.73 sqM) Est GFR (CKD-EPI)NonAf 25 (>60 ml/min/1.73 sqM) Glucose 105 H (74-99) mg/dL Calcium 11.8 H (8.4-10.2) mg/dL Magnesium 2.0 (1.6-2.3) mg/dL Total Bilirubin 0.8 (0.2-1.3) mg/dL AST 22 (17-59) U/L ALT 18 (4-49) U/L Alkaline Phosphatase 103 (38-126) U/L Troponin I <0.012 (0.000-0.034) ng/mL Total Protein 7.8 (6.3-8.2) g/dL Albumin 3.6 (3.5-5.0) g/dL Stool Occult Blood (Negative) Blood Type Recheck No Previous Record Bld Type Recheck Status CABO Indicated Spec Expiration Date 11/26/20222313 Disposition Clinical Impression: Sacral ulcer Disposition: HOME SELF-CARE Condition: Stable Instructions (If sedation given, give patient instructions): Chronic Wounds (ED) Additional Instructions: Please do follow-up with primary care doctor in the next couple days for recheck. Patient will need further care regarding sacral ulcer. Consider wound care at the hospital, patient will need referral through primary care physician if this is felt necessary. Hemoglobin is stable. Return for bleeding, fever, increased pain, worsening or changing symptoms or other concerns. Is patient prescribed a controlled substance at d/c from ED?: No Referrals: Herve Argueta MD [Primary Care Provider] - 1-2 days Time of Disposition: 11:34
[2022-11-23 10:32] LABS: Anisocytosis Slight; Basophils % (A) 0 %; Eosinophils # (A) 0.3 k/uL (0-0.7); Eosinophils % (A) 3 %; HCT 35.2 % (39.0-53.0); HGB 11.2 gm/dL (13.0-17.5); Lymphocytes # (A) 1.1 k/uL (1.0-4.8); Lymphocytes % (A) 10 %; MCH 26.7 pg (25.0-35.0); MCHC 31.8 g/dL (31.0-37.0); Mean Platelet Volume 8.5; Monocytes # (A) 0.5 k/uL (0-1.0); Monocytes % (A) 5 %; Neutrophils # (A) 8.9 k/uL (1.3-7.7); Neutrophils % (A) 81 %; Platelet Count 209 k/uL (150-450); RBC 4.19 m/uL (4.30-5.90); RDW 16.9 % (11.5-15.5)
[2022-11-23 10:40] LABS: Prothrombin Time 10.4 sec (9.0-12.0)
[2022-11-23 10:50] LABS: Albumin 3.6 g/dL (3.5-5.0); Calcium 11.8 mg/dL (8.4-10.2); Potassium 4.1 mmol/L (3.5-5.1); Total Bilirubin 0.8 mg/dL (0.2-1.3); Total Protein 7.8 g/dL (6.3-8.2)
--- NOTE | 2022-11-23 11:03 | XR ---
EXAMINATION TYPE: XR chest 1V portable DATE OF EXAM: 11/23/2022 10:56 AM COMPARISON: Chest radiographs from 05/27/2021 TECHNIQUE: XR chest 1V portable Portable AP radiograph of the chest. CLINICAL INDICATION:Male, 66 years old with history of weak; FINDINGS: Lungs/Pleura: There is no evidence of pleural effusion, focal consolidation, or pneumothorax. Pulmonary vascularity: Unremarkable. Heart/mediastinum: Cardiomediastinal silhouette is unremarkable. Atherosclerotic calcifications are seen in the aorta. Single-lead cardiac conduction device overlying the left hemithorax with lead proj ecting over the right ventricle. Musculoskeletal: No acute osseous pathology. IMPRESSION: No acute cardiopulmonary disease/process.
--- NOTE | 2022-11-23 11:03 | XR ---
EXAMINATION TYPE: XR pelvis AP view DATE OF EXAM: 11/23/2022 10:56 AM INDICATION: Patient age:Male; 66 years old; Reason for study: sacral ulcer; PHH. COMPARISON: CT chest of the pelvis 05/30/2021. TECHNIQUE: The pelvis was examined in a single projection. FINDINGS: There is no evidence of fracture or dislocation. Mild osteoarthritic changes of both hips. There is no soft tissue abnormality. 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 The sacrum is poorly evaluated due to overlying rectal fecaloma. Multiple pelvic phlebolit hs. Vascular sclerosis. Multilevel degenerative changes of the lower spine. IVC filter demonstrated. IMPRESSION: 1. No acute osseous pathology. 2. Rectal fecaloma.
[2022-11-23 11:29] VITALS: BP 111/75; PULSE 62
== END 2022-11-23 12:32 | disposition home or self-care (01) ==
LOC: EC 09:46
DX: L89.159 Pressure ulcer of sacral region, unspecified stage (principal); I48.91 Unspecified atrial fibrillation; J44.9 Chronic obstructive pulmonary disease, unspecified; Z86.718 Personal history of other venous thrombosis and embolism; I10 Essential (primary) hypertension; M19.90 Unspecified osteoarthritis, unspecified site; F41.9 Anxiety disorder, unspecified; F17.200 Nicotine dependence, unspecified, uncomplicated; Z79.899 Other long term (current) drug therapy
CPT/HCPCS: 36415; 71045; 72170; 80053; 82272; 83735; 84484; 85025; 85610; 85730; 86850; 86900; 86901; 87070; 87205; 93005; 99285

== ENCOUNTER 2024-07-12 02:15 | Emergency (ER) | payer MEDICARE, OTHER ==
--- NOTE | 2024-07-12 02:39 | ED ---
Male Urogenital HPI - General Chief complaint: Urogenital Stated complaint: catheter issues Time Seen by Provider: 07/12/24 02:17 Source: patient, EMS, RN notes reviewed, old records reviewed Mode of arrival: EMS - History of Present Illness Initial comments: This is a 68-year-old male presents today for evaluation of Malone catheter complication. Patient states Malone catheter is been leaking around the site and was sent to ER for evaluation, no significant abdominal pain MD Complaint: testicle pain -: hour(s) Location: penis Radiation: none Severity: mild Severity scale (1-10): 3 Consistency: constant Improves with: none - Related Data Home Medications Medication Instructions Recorded Confirmed Folic Acid 1 mg PO DAILY 05/28/21 11/23/22 Tamsulosin HCl [Flomax] 0.4 mg PO HS 05/28/21 11/23/22 allopurinoL [Zyloprim] 200 mg PO DAILY 05/28/21 11/23/22 traZODone HCL [Desyrel] 50 mg PO HS 05/28/21 11/23/22 Acetaminophen Tab [Tylenol] 650 mg PO Q4H PRN 11/23/22 11/23/22 Ammonium Lactate Lotion 1 applic TOPICAL BID 11/23/22 11/23/22 [Lac-Hydrin 12% Lotion] Artificial Tears-Hypromellose 2 drops BOTH EYES Q12H 11/23/22 11/23/22 [Artificial Tear Drops] DULoxetine HCL [Cymbalta] 60 mg PO HS 11/23/22 11/23/22 Docusate [Colace] 100 mg PO DAILY 11/23/22 11/23/22 Famotidine [Pepcid] 20 mg PO BID 11/23/22 11/23/22 Lidocaine/Menthol [Icy Hot 4%-1% 1 patch TOPICAL Q24H PRN 11/23/22 11/23/22 Patch] Metoprolol Tartrate [Lopressor] 25 mg PO BID 11/23/22 11/23/22 Morphine Sulfate ER [Ms Contin] 15 mg PO Q12HR 11/23/22 11/23/22 Multivitamins, Thera [Multivitamin 1 tab PO DAILY 11/23/22 11/23/22 (formulary)] Ondansetron [Zofran] 4 mg PO Q6H PRN 11/23/22 11/23/22 Pregabalin [Lyrica] 150 mg PO BID 11/23/22 11/23/22 guaiFENesin [guaiFENesin Oral 200 mg PO Q4H PRN 11/23/22 11/23/22 Solution] methocarbamoL [Robaxin] 1,000 mg PO Q8H PRN 11/23/22 11/23/22 Allergies Allergy/AdvReac Type Severity Reaction Status Date / Time No Known Allergies Allergy Verified 07/12/24 02:34 Review of Systems ROS Statement: Those systems with pertinent positive or pertinent negative responses have been documented in the HPI. ROS Other: All systems not noted in ROS Statement are negative. Past Medical History Past Medical History: Atrial Fibrillation, COPD, Deep Vein Thrombosis (DVT), Hypertension, Osteoarthritis (OA), Pulmonary Embolus (PE), Renal Disease Additional Past Medical History / Comment(s): gout, colostomy. History of Any Multi-Drug Resistant Organisms: None Reported Past Surgical History: Pacemaker Type of Cardiac Device: Permanent Pacemaker Device Placement Date:: 2018 Past Psychological History: Anxiety Smoking Status: Current every day smoker Past Alcohol Use History: Abuse Past Drug Use History: None Reported - Past Family History Father Family Medical History: Hypertension General Exam General appearance: alert, in no apparent distress Head exam: Present: atraumatic, normocephalic, normal inspection Eye exam: Present: normal appearance, PERRL, EOMI. Absent: scleral icterus, conjunctival injection, periorbital swelling ENT exam: Present: normal exam, mucous membranes moist Neck exam: Present: normal inspection. Absent: tenderness, meningismus, lymphadenopathy Respiratory exam: Present: normal lung sounds bilaterally. Absent: respiratory distress, wheezes, rales, rhonchi, stridor Cardiovascular Exam: Present: regular rate, normal rhythm, normal heart sounds. Absent: systolic murmur, diastolic murmur, rubs, gallop, clicks GI/Abdominal exam: Present: soft, normal bowel sounds. Absent: distended, tenderness, guarding, rebound, rigid Extremities exam: Present: normal inspection, full ROM, normal capillary refill. Absent: tenderness, pedal edema, joint swelling, calf tenderness Back exam: Present: normal inspection Neurological exam: Present: alert, oriented X3, CN II-XII intact Psychiatric exam: Present: normal affect, normal mood Skin exam: Present: warm, dry, intact, normal color. Absent: rash Course Vital Signs 07/12/24 07/12/24 02:18 04:15 Temperature 99.2 F 99.3 F Pulse Rate 75 71 Respiratory 16 14 Rate Blood Pressure 130/90 126/87 O2 Sat by Pulse 99 94 L Oximetry - Reevaluation(s) Reevaluation #1: 07/12/24 03:02 Medical records reviewed Reevaluation #2: 07/12/24 03:02 Symptoms improved here in the ER Reevaluation #3: 07/12/24 03:02 Informed of results questions answered Reevaluation #4: Was pt. sent in by a medical professional or institution (, MARCELINA, MEDICAL CHIEF TECHNICIAN, urgent care, hospital, or senior care...) When possible be specific @ -no Did you speak to anyone other than the patient for history (EMS, parent, family, police, friend...)? What history was obtained from this source @ -no Did you review nursing and triage notes (agree or disagree)? Why? @ -agree Are old charts reviewed (outside hosp., previous admission, EMS record, old EKG, old radiological studies, urgent care reports/EKG's, senior care records)? Report findings @ -yes Differential Diagnosis (chest pain, altered mental status, abdominal pain women, abdominal pain men, vaginal bleeding, weakness, fever, dyspnea, syncope, headache, dizziness, GI bleed, back pain, seizure, CVA, palpatations, mental health, musculoskeletal)? @ -prior EKG interpreted by me (3pts min.). @ -no X-rays interpreted by me (1pt min.). @ -no CT interpreted by me (1pt min.). @ -no U/S interpreted by me (1pt. min.). @ -no What testing was considered but not performed or refused? (CT, X-rays, U/S, labs)? Why? @ -none What meds were considered but not given or refused? Why? @ -none Did you discuss the management of the patient with other professionals (professionals i.e. MARCELINA Perez, MEDICAL CHIEF TECHNICIAN, lab, RT, psych nurse, sr. social media & mobile manager, civil lawyer, teacher, electrical engineering drafting officer, case liner)? Give summary @ -no Was smoking cessation discussed for >3mins.? @ -no Was critical care preformed (if so, how long)? @ -no Were there social determinants of health that impacted care today? How? (Homelessness, low income, unemployed, alcoholism, drug addiction, transportation, low edu. Level, literacy, decrease access to med. care, long-term, rehab)? @ -none Was there de-escalation of care discussed even if they declined (Discuss DNR or withdrawal of care, Hospice)? DNR status @ -no What co-morbidities impacted this encounter? (DM, HTN, Smoking, COPD, CAD, Cancer, CVA, ARF, Chemo, Hep., AIDS, mental health diagnosis, sleep apnea, morbid obesity)? @ -none Was patient admitted / discharged? Hospital course, mention meds given and route, prescriptions, significant lab abnormalities, going to OR and other pertinent info. @ - 68 male to ER for evaluation of Malone catheter exchange. Patient's catheter is working currently after exchange and patient can be discharged Discharge Undiagnosed new problem with uncertain prognosis? @ -no Drug Therapy requiring intensive monitoring for toxicity (Heparin, Nitro, Insulin, Cardizem)? @ -no Were any procedures done? @ -no Diagnosis/symptom? @ -Urinary retention with catheter exchange Acute, or Chronic, or Acute on Chronic? @ -Acute Uncomplicated (without systemic symptoms) or Complicated (systemic symptoms)? @ -Complicated Side effects of treatment? @ -no Exacerbation, Progression, or Severe Exacerbation? @ -exacerbation Poses a threat to life or bodily function? How? (Chest pain, [place], [place], pneumonia, PE, COPD, DKA, ARF, appy, cholecystitis, CVA, Diverticulitis, Homicidal, Suic idal, threat to staff... and all critical care pts) @ -no Medical Decision Making - Medical Decision Making 68 male to ER for evaluation of Malone catheter exchange. Patient's catheter is working currently after exchange and patient can be discharged Disposition Clinical Impression: Malone catheter problem Disposition: HOME SELF-CARE Condition: Good Instructions (If sedation given, give patient instructions): Malone Catheter Placement and Care (ED) Is patient prescribed a controlled substance at d/c from ED?: No Referrals: None,Stated [REFERRING] - 1-2 days Time of Disposition: 03:00
[2024-07-12 04:17] VITALS: BP 126/87; PULSE 71; RESP 14; TEMP 99.3
== END 2024-07-12 04:15 | disposition home or self-care (01) ==
LOC: EC 02:15
DX: T83.091A Other mechanical complication of indwelling urethral catheter, initial encounter
CPT/HCPCS: 51702; 99284